=== PATIENT | male | born 1950 | race African-American/Black ===

== ENCOUNTER 2016-09-29 11:49 | Inpatient (IN) ==
[2016-09-29] MEDS ORDERED: SODIUM CHLORIDE 0.9% 1,000 ML IV STA (12:24)
[2016-09-29 12:55] LABS: Basophils % 0.2 % (0.0-0.8); Eosinophils % 0.2 % (0.00-10.9); Hematocrit 29.6 VOL% (42.0-52.0); Hemoglobin 9.5 GM/DL (14.0-18.0); Immature Granulocytes % 0.4 %; Immature Granulocytes Absolute 0.03 #; Lymphocytes # 1.4 10*3/uL (1.4-4.0); Lymphocytes % 16.9 % (21.2-54.2); Mean Corpuscular HGB Conc 32.1 GM/DL (32-36); Mean Corpuscular Hemoglobin 29 PG (27-34); Mean Corpuscular Volume 88.9 FL (87-102); Mean Platelet Volume 9.4 FL (9.6-12.0); Monocytes # 0.8 10*3/uL (0.11-0.8); Monocytes % 9.7 % (1.7-12.7); Neutrophils % 72.6 % (38.7-73.9); Platelet Count 257 T/CUMM (130-400); Red Blood Count 3.33 MC/CUMM (3.8-5.5); Red Cell Distribution Width 11.8 % (9.3-17.3); White Blood Count 8.2 T/CUMM (4-12)
--- NOTE | 2016-09-29 13:18 | XRay Report ---
XR chest 1V portable Indication: Shortness of breath and fever. Chest one view: Comparison 02/25/2016. Patient is rotated to the left. The heart size and mediastinal contour are normal. The lungs and pleural spaces are clear. Bones are unremarkable. Impression: Negative chest. PROCEDURE INTERPRETED AT [facility] DEPARTMENT OF RADIOLOGY Final Report Signed by: Monster Gifford M.D.
[2016-09-29 13:30] LABS: Albumin 2.8 G/DL (3.4-5.0); Calcium 9.2 MG/DL (8.5-10.1); Osmolality,Calculated 278.4 MOS/KG (273-304); Potassium 3.9 MMOL/L (3.5-5.1); Total Protein 7.1 G/DL (6.4-8.3)
[2016-09-29 14:35] LABS: Apearance,Urine CLOUDY (Clear); Bacteria,Urine Many /HPF (Few); Bilirubin,Urine Negative (Negative); Blood, Urine Moderate mg/dL (Negative); Glucose,Urine (UA) Negative (Negative); Hyaline Casts,Urine 4 /LPF (0-3); Ketones,Urine 20 mg/dL (Negative); Mucus,Urine Few /LPF (Occasional); Nitrite,Urine Positive (Negative); Protein,Urine 30 MG/DL; RBC,Urine 180 /HPF (0-4); Squamous Epithelial Cell,Urine Occasional /HPF (0-10); Urine Color Amber (Yellow); Urine Specific Gravity 1.026 (1.001-1.035); WBC,Urine 3 /HPF (0-6)
--- NOTE | 2016-09-29 14:49 | XRay Report ---
Exam: XR ankle 3V LT Date: 09/29/2016 2:00 PM Comparison: None Indication: Decubitus the left ankle Technique: AP, oblique, and lateral left ankle Findings: Soft tissue swelling with arterial calcifications. Minimal joint space narrowing with small calcaneal osteophytes. No fracture, dislocation or dislocation. Chronic appearing deformity of the lateral distal left tibia. Impression: Soft tissue swelling with minimal degenerative changes. Calcaneal osteophytes. There is chronic appearing irregularity of the lateral cortex of the distal left tibia. No acute fracture or dislocation. Arterial calcifications are noted. PROCEDURE INTERPRETED AT [facility] DEPARTMENT OF RADIOLOGY Final Report Signed by: Dr. Kayce Mondragon
--- NOTE | 2016-09-29 14:53 | XRay Report ---
Exam: XR foot 2V LT Date: 09/29/2016 2:00 PM Comparison: None Indication: Decubitus in left foot and ankle Technique: AP, oblique, and lateral left foot Findings: Soft tissue swelling with ulceration beneath the os calcis. Overlying bandages. Joint space narrowing with sclerosis and osteophytes. Arterial calcifications with no acute fracture, dislocation, or significant periosteal thickening. Impression: Soft tissue swelling with ulceration and arterial calcifications. Minimal degenerative changes with no fracture, dislocation, or periosteal thickening. PROCEDURE INTERPRETED AT [facility] DEPARTMENT OF RADIOLOGY Final Report Signed by: Dr. Kayce Mondragon
[2016-09-29] MEDS ORDERED: BISACODYL 5 MG TABLET PO PRN (14:59)
[2016-09-29] MEDS ORDERED: ONDANSETRON 4 MG/2 ML VIAL IV PRN (14:59)
[2016-09-29] MEDS ORDERED: traZODone 50 MG TABLET PO PRN (14:59)
--- NOTE | 2016-09-29 15:03 | Emergency Department Note ---
Luis Sandoval Brittany, am scribing for, and in the presence of, Stepan Lord MD 12:41. Pop Sandoval Phillip K, MD, personally performed the services described in this documentation, ascribed by Velia Smith in my presence, and it is both accurate and complete [id number] . Arrival - Arrival Chief Complaint: Non-Specific Stated Complaint: AMS ED Nursing Triage Note: states patient has not had a good B/M in several days, not drinking or eating, has been running a fever. Patient wifes states he also has several decubitus that she wants checked. Mode of Arrival: Wheelchair Limitations: No Limitations Source: Family Time Seen by Provider: 09/29/16 12:14 - History of Present Illness HPI Narrative: This is a 66 y/o black male,who presents to the ED with c/o fever which started yesterday. His states pt has had a fever and a decreased PO intake since yesterday. She reports she has been giving pt Tylenol BID over the past 24 hours , but has not giving him any today. She also complains of open sores to the lower extremities and constipation. Pt's states he has not had a BM since 08/24/2016. She has been giving him stool softeners and states yesterday he was able to pass "small marbles". Pt has no other complaints/pain in the ED at this time. Pt has a PMHx of CVA, HTN, dementia, IDDM, dyslipidemia, herniated disk, degenerative disk disease, and back/neck problems. Pt has had a RTKR and spinal surgery. Pt has a Family medical Hx of HTN, stroke, diabetes, and cancer. Pt is a current every day smoker. Onset (ago): day(s) (Started yesterday) Consistency: constant Severity: moderate Allergies/Adverse Reactions: Allergies Allergy/AdvReac Type Severity Reaction Status Date / Time No Known Allergies Allergy Unverified 08/14/15 14:06 Home Medications: Home Medications Medication Instructions Recorded Confirmed Type Bisoprolol Fumarate/Hctz 2 tablet PO DAILY 08/14/15 09/29/16 History [Bisoprolol-Hctz 10-6.25 mg Tab] Simvastatin 40.5 tablet PO 1800 08/14/15 09/29/16 History Tamsulosin [Flomax] 1 capsule PO BID 08/14/15 09/29/16 History Cholecalciferol (Vitamin D3) 1,000 unit PO DAILY 02/11/16 09/29/16 History [Vitamin D3] Losartan [Cozaar] 100 mg PO DAILY 02/11/16 09/29/16 History Polyethylene Glycol Powder 17 gm PO DAILY #10 powder 04/05/16 09/29/16 Rx [Miralax] Ferrous Sulfate 324 mg PO DAILY 09/29/16 09/29/16 History Lactulose 10 ml PO DAILY PRN 09/29/16 09/29/16 History hydroCHLOROthiazide 0.5 mg PO DAILY 09/29/16 09/29/16 History [Hydrochlorothiazide] Review of System - Review of System 12 point system: reviewed and no additional remarkable complaints except as stated - Review of System Constitutional: Present: fever Gastrointestinal: Present: constipation Additional ROS comments: Decubitus to the lower extremities. Medical,Surgical,& Family Hx - Medical History Cardio: History of: Hypertension No history of: Aneurysm, Cardiac Dysrhythmia, Cerebrovascular Disease, Congenital Heart Disease, CHF, CAD, [place], Pacemaker, PVD, Valvular Heart Disease, Cardiovascular Problems Psychological: No history of: Anxiety Disorders, ADHD, Behavior Problems, Bipolar Disorder, Depression, Previous Suicide Attempt, Psychiatric/Substance Abuse Tx, Schizophrenia, Violent Behavior, Psychiatric Problems Neurology: History of: Cerebrovascular Accident, Dementia No history of: Brain Aneurysm, Cerebral Hemorrhage, Cerebral Palsy, Migraine , Multiple Sclerosis, Parkinson's Disease, Peripheral Neuropathy, Seizures, TIA , Vertigo, Neurologocal Cancer HEENT: No history of: Ear Problem, Eye Problem, Dental Problems, Glaucoma, Oral Cancer, HEENT Problems Endocrine: History of: Diabetes Mellitus (NIDDM), Dyslipidemia No history of: Adrenal Disease, Diabetes Mellitus (IDDM), Thyroid Disorder, Endocrine Cancer, Endocrine Problems Rheumatology: No history of;: Fibromyalgia, Gout, Myasthenia Gravis, Psoriasis, Rheumatoid Arthritis, Sjogrens, Systemic Lupus Erythematosus, Rheumatological Problems Respiratory: No history of: Asthma, Bronchitis, COPD, Intubation, Obstructive Sleep Apnea , Pulmonary Embolism, Pulmonary Hypertension, Pneumonia, Lung Cancer, Respiratory Problems Renal: No history of: Renal (Kidney) Cancer, Dialysis, Renal Failure, Renal Problems Genitourinary: No history of: Bladder Problem, Kidney Stones, Prostate Problems, Recurring Urinary Tract Infections, Genitourinary Cancer, Problems Gastrointestinal: No history of: Bowel Obstruction, Clostridium Difficile, Crohn's Disease, Diverticulitis/ Diverticulosis, Esophageal Varices, GERD, Gastrointestinal Bleed , Hemorrhoids, Hematochezia, Hepatitis, Liver Problems, Pancreatitis, Polyps, Ulcerative Colitis, Gastrointestinal Cancer, GI Problems Musculoskeletal: History of: Back/Neck Problems, Degenerative Disk Disease, Herniated Disk No history of: Amputation, Osteoporosis, Musculoskeletal Cancer, Musculoskeletal Problems Hematology: No history of: Anemia, Blood Transfusion Reaction, Bleeding Problems, Clotting Problems, Sickle Cell Disease, Hematologic Cancer, Blood Disorders Reproductive: No histroy: Penile Disorder, Sexually Transmitted Disease, Reproductive Cancer, Reproductive Problems Other: No history of: Anesthesia Reactions, Anaphylaxis, Cancer, Eczema, HIV, Malignant Hyperthermia, MRSA, Vancomycin-Resistant Enterococci, Skin Problems, Miscellaneous Medical Problems - Surgical History Cardiac Surgeries: Patient Denies: Femoral-Popliteal Bypass Graft, Cardiac Catheterization, Cardiac Surgery, Carotid Endarterectomy, Internal Defibrillator, Vascular Access Devices Thoracic Surgeries: Patient denies;: Kidney (Renal Surgery), Lithotripsy, Nephrectomy, Organ Transplant, Lobectomy Neurologic Surgeries: Patient denies: Brain Aneurysm, Cerebral Hemorrhage, Neurologic Surgery HEENT Surgeries: Patient denies: Carotid Endarterectomy, Eye Surgery, Thyroid Surgery, Tonsilectomy & Adenoidectomy Abdominal Surgeries: Patient denies: Abdominal Surgery, Appendectomy, Cholecystectomy, Colonoscopy , Gastric Bypass Surgery, EGD, Hernia Repair, Splenectomy Reproductive Surgeries: Patient denies;: Breast Surgery, Cystoscopy, Genitourinary Surgery, Prostate Surgery, Vasectomy Orthopedic Surgeries: Surgical HX of;: Orthopedic Surgery (Right Knee replacement), Spinal Surgery, Total Knee Replacement (Right Knee) Patient denies;: Implanted Devices, Total Hip Replacement - Family History Family History: Reports;: Family Cancer, Family Diabetes, Family Hypertension, Family Stroke Denies;: Family Anesthesia Reaction, Family Heart Disease, Family Psychiatric Problems - Social History Smoking Status: Current every day smoker Frequency of Alcohol Use: Unknown Type of Drug Use: Unknown Exam Vital Signs: Vital Signs Temperature 97.7 F 09/29/16 11:59 Pulse Rate 91 H 09/29/16 11:59 Respiratory Rate 16 09/29/16 12:55 Blood Pressure 98/57 09/29/16 11:59 O2 Sat by Pulse Oximetry 98 02/07/17 11:59 - General General appearance: alert, in no apparent distress - Head Head exam: Present: atraumatic, normocephalic, normal inspection - Eye Eye exam: Present: normal appearance, PERRL, EOMI - ENT ENT exam: Present: normal exam, normal oropharynx, mucous membranes moist - Neck Neck exam: Present: normal inspection, full ROM, trachea midline. Absent: tenderness, thyromegaly - Chest Chest inspection: Present: normal inspection, symmetric chest wall rise. Absent : tenderness, abscess - Respiratory Respiratory exam: Present: normal lung sounds bilaterally. Absent: prolonged expiratory phase, rales, respiratory distress, rhonchi, stridor, wheezes - Cardiovascular Cardiovascular exam: Present: regular rate, normal rhythm, normal heart sounds. Absent: murmur, rubs, gallop, clicks - Abdominal Exam Abdominal exam: Present: soft, normal bowel sounds. Absent: distention, tenderness, guarding, rebound, rigidity - Rectal Exam Rectal exam: Present: heme (-) stool. Absent: fecal impaction - Extremities Exam Extremities exam: Present: other (1x2 cm wound to the dorsal of the left ankle, 1x1 cm wound to the head of the 5th left metatrasal ) - Back Exam Back exam: Present: normal inspection, full ROM. Absent: tenderness, muscle spasm, rashes - Neurological Exam Neurological exam: Present: alert, other (Contractions of the left side of body secondary to previous CVA (01/22/2016)) - Psychiatric Psychiatric exam: Present: normal affect, normal mood. Absent: depressed, agitated, anxious - Skin Skin exam: Present: warm, dry, intact, normal color. Absent: diaphoresis Results - Labs CBC & BMP: 09/29/16 12:10 09/29/16 12:10 Lab Results: I have reviewed the patients labs - Diagnostic Findings Procedure: Chest x-ray: report reviewed by me (Normal chest x-ray) Disposition Clinical Impression: Anemia, Failure to thrive, Decubitus skin ulcer, Dehydration Case discussed with: patient's family Disposition: Still a Patient Condition: Guarded Additional Instructions: Admit to the hospitalist.
--- NOTE | 2016-09-29 15:13 | EKG Report ---
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
--- NOTE | 2016-09-29 15:15 | Hospitalist History & Physical ---
Assessment and Plan (1) Decubitus skin ulcer Status: Chronic Assessment and plan: Complex lesion on the left foot with fever and presumptive systemic toxicity ( toxic encephalopathy). No sepsis criteria at presentation. Current Visit: Yes Qualifiers: Pressure ulcer location: dorsum of foot (2) CVA (cerebral vascular accident) Status: Chronic Assessment and plan: Multiple ischemic [employer] events with profound residual neurologic deficits (motor, speech). Pressure injuries with contractures Current Visit: No (3) Diabetes mellitus Status: Chronic Assessment and plan: Due to poor oral intake has not required recent active therapy. Current Visit: No Qualifiers: Diabetes mellitus type: type 2 History of Present Illness History of present illness: Mr. Hallman is a 66 year old male hypertensive with clinical CVA 1999,2003, and most recently in January. The imaging studies in January showed multifocal cerebral lesions of various ages, normal echocardiogram and no significant carotid artery lesion. He had been on coumadin fdc but this was discontinue in March due to bleeding. Since last stroke he has been bed bound with bilateral heal pressure injuries and progressive flexion contracture of the left lower extremity. With this he has had progressive loss of tissue over the dorsum of the foot. He has been managed by home health through the [facility] without final disposition. Beginning Wednesday less alert with poor oral intake. Low grade fever yesterday with temperature this AM above 101 even with intermittent tylenol since Wednesday. Patient was diabetic but oral agents discontinued due to poor oral intake, likewise his with home health have been holding blood pressure medications intermittently. Home Medications Medication Instructions Recorded Confirmed Type Bisoprolol Fumarate/Hctz 2 tablet PO DAILY 08/14/15 09/29/16 History [Bisoprolol-Hctz 10-6.25 mg Tab] Simvastatin 40.5 tablet PO 1800 08/14/15 09/29/16 History Tamsulosin [Flomax] 1 capsule PO BID 08/14/15 09/29/16 History Cholecalciferol (Vitamin D3) 1,000 unit PO DAILY 02/11/16 09/29/16 History [Vitamin D3] Losartan [Cozaar] 100 mg PO DAILY 02/11/16 09/29/16 History Polyethylene Glycol Powder 17 gm PO DAILY #10 powder 04/05/16 09/29/16 Rx [Miralax] Ferrous Sulfate 324 mg PO DAILY 09/29/16 09/29/16 History Lactulose 10 ml PO DAILY PRN 09/29/16 09/29/16 History hydroCHLOROthiazide 0.5 mg PO DAILY 09/29/16 09/29/16 History [Hydrochlorothiazide] Allergies Allergy/AdvReac Type Severity Reaction Status Date / Time No Known Allergies Allergy Unverified 08/14/15 14:06 Medical,Surgical,& Family Hx - Medical History Cardio: History of: Cerebrovascular Disease (multiple CVA with wide distribution in time and location), Hypertension Neurology: History of: Cerebrovascular Accident, Cerebral Palsy, Dementia Endocrine: History of: Diabetes Mellitus (NIDDM), Dyslipidemia Genitourinary: History of: Prostate Problems Gastrointestinal: History of: Gastrointestinal Bleed Musculoskeletal: History of: Back/Neck Problems, Degenerative Disk Disease, Herniated Disk - Surgical History Orthopedic Surgeries: Surgical HX of;: Orthopedic Surgery (Right Knee replacement), Spinal Surgery (lumbar disc) - Family History Family History: Reports;: Family Cancer, Family Diabetes, Family Hypertension, Family Stroke Denies;: Family Anesthesia Reaction, Family Heart Disease, Family Psychiatric Problems - Social History Smoking Status: Former smoker (since last admission) Frequency of Alcohol Use: Unknown Type of Drug Use: Unknown ROS unobtainable: due to mental status Exam - Constitutional Vitals: Period Temp Pulse Resp BP Sys/Valenzuela Pulse Ox Last 24 Hr 97.7 F-97.7 F 91-91 16-19 98-98/57-57 98 General appearance: under weight - Head Head exam: Present: atraumatic - Neck Neck exam: Absent: lymphadenopathy, thyromegaly - Respiratory Respiratory exam: Present: clear to auscultation bilaterally. Absent: rales, rhonchi, wheezes - Cardiovascular Cardiovascular exam: Present: regular rate and rhythm - GI/Abdominal GI/Abdominal exam: Absent: normal bowel sounds, distended, mass, organomegaly, tenderness - Extremities Exam Extremities exam: Present: other (marked sarcopenia. left knee contracture). Absent: edema - Neurological Exam Neurological exam: Present: alert, other (non verbal) Results - Labs CBC & BMP: 09/29/16 12:10 09/29/16 12:10 Lab Results: I have reviewed the past 24 hour labs Labs: Globulin 4.3 Albumen 2.8 Urinalysis RBC, mild proteinuria, few WBC - Diagnostic Findings Procedure: Chest x-ray: image reviewed by me (severe GALO rotation with soft tissue overlay)
--- NOTE | 2016-09-29 17:16 | General Surgery Consult Note ---
Assessment and Plan (1) Decubitus skin ulcer Status: Chronic Assessment and plan: Impression: Diabetic ulcers on left foot Plan: I don't see any obvious active infection at this time. We'll plan for debridement of these at the bedside as best as possible tomorrow with a curette. We'll have a better sense of any infectious process at that time. I have concern that he may not be able to heal several of these ulcers including those with exposed tendon. I discussed the possibility of amputation above the knee with the family that they don't want that at this time. I suspect he would be at a higher than usual risk for anesthesia given his history of strokes in the past. We'll continue with local wound care at this time. Current Visit: Yes Qualifiers: Pressure ulcer location: dorsum of foot History of Present Illness Chief complaint: consult for foot ulcers History of present illness: Mr. Hallman is a 66 year old male admitted with fever. Extensive medical history including multiple prior cerebrovascular accidents. He is off anticoagulation due to history of bleeding. He's had multiple lower extremity ulcers and the ones on the right foot have healed with home health. The left lower extremity is contracted and he has several ulcers on the left foot including the dorsum, lateral foot, medial foot and great toe. He no longer participates in physical therapy as he was not making any progress. There is no hope for any future ambulation with his contracture and debilitation. Home Medications Medication Instructions Recorded Confirmed Type Bisoprolol Fumarate/Hctz 2 tablet PO DAILY 08/14/15 09/29/16 History [Bisoprolol-Hctz 10-6.25 mg Tab] Simvastatin 40.5 tablet PO 1800 08/14/15 09/29/16 History Tamsulosin [Flomax] 1 capsule PO BID 08/14/15 09/29/16 History Cholecalciferol (Vitamin D3) 1,000 unit PO DAILY 02/11/16 09/29/16 History [Vitamin D3] Losartan [Cozaar] 100 mg PO DAILY 02/11/16 09/29/16 History Polyethylene Glycol Powder 17 gm PO DAILY #10 powder 04/05/16 09/29/16 Rx [Miralax] Ferrous Sulfate 324 mg PO DAILY 09/29/16 09/29/16 History Lactulose 10 ml PO DAILY PRN 09/29/16 09/29/16 History hydroCHLOROthiazide 0.5 mg PO DAILY 09/29/16 09/29/16 History [Hydrochlorothiazide] Allergies Allergy/AdvReac Type Severity Reaction Status Date / Time No Known Allergies Allergy Unverified 08/14/15 14:06 Medical,Surgical,& Family Hx - Medical History Cardio: History of: Cerebrovascular Disease (multiple CVA with wide distribution in time and location), Hypertension No history of: Aneurysm, Cardiac Dysrhythmia, Congenital Heart Disease, CHF, CAD, [place], Pacemaker, PVD, Valvular Heart Disease, Cardiovascular Problems Psychological: No history of: Anxiety Disorders, ADHD, Behavior Problems, Bipolar Disorder, Depression, Previous Suicide Attempt, Psychiatric/Substance Abuse Tx, Schizophrenia, Violent Behavior, Psychiatric Problems Neurology: History of: Cerebrovascular Accident, Cerebral Palsy, Dementia No history of: Brain Aneurysm, Cerebral Hemorrhage, Migraine, Multiple Sclerosis, Parkinson's Disease, Peripheral Neuropathy, Seizures, TIA, Vertigo, Neurologocal Cancer HEENT: No history of: Ear Problem, Eye Problem, Dental Problems, Glaucoma, Oral Cancer, HEENT Problems Endocrine: History of: Diabetes Mellitus (NIDDM), Dyslipidemia No history of: Adrenal Disease, Diabetes Mellitus (IDDM), Thyroid Disorder, Endocrine Cancer, Endocrine Problems Rheumatology: No history of;: Fibromyalgia, Gout, Myasthenia Gravis, Psoriasis, Rheumatoid Arthritis, Sjogrens, Systemic Lupus Erythematosus, Rheumatological Problems Respiratory: No history of: Asthma, Bronchitis, COPD, Intubation, Obstructive Sleep Apnea , Pulmonary Embolism, Pulmonary Hypertension, Pneumonia, Lung Cancer, Respiratory Problems Renal: No history of: Renal (Kidney) Cancer, Dialysis, Renal Failure, Renal Problems Genitourinary: History of: Prostate Problems No history of: Bladder Problem, Kidney Stones, Recurring Urinary Tract Infections, Genitourinary Cancer, Problems Gastrointestinal: History of: Gastrointestinal Bleed No history of: Bowel Obstruction, Clostridium Difficile, Crohn's Disease, Diverticulitis/ Diverticulosis, Esophageal Varices, GERD, Hemorrhoids, Hematochezia, Hepatitis, Liver Problems, Pancreatitis, Polyps, Ulcerative Colitis, Gastrointestinal Cancer, GI Problems Musculoskeletal: History of: Back/Neck Problems, Degenerative Disk Disease, Herniated Disk No history of: Amputation, Osteoporosis, Musculoskeletal Cancer, Musculoskeletal Problems Hematology: No history of: Anemia, Blood Transfusion Reaction, Bleeding Problems, Clotting Problems, Sickle Cell Disease, Hematologic Cancer, Blood Disorders Reproductive: No histroy: Penile Disorder, Sexually Transmitted Disease, Reproductive Cancer, Reproductive Problems Other: No history of: Anesthesia Reactions, Anaphylaxis, Cancer, Eczema, HIV, Malignant Hyperthermia, MRSA, Vancomycin-Resistant Enterococci, Skin Problems, Miscellaneous Medical Problems - Surgical History Cardiac Surgeries: Patient Denies: Femoral-Popliteal Bypass Graft, Cardiac Catheterization, Cardiac Surgery, Carotid Endarterectomy, Internal Defibrillator, Vascular Access Devices Thoracic Surgeries: Patient denies;: Kidney (Renal Surgery), Lithotripsy, Nephrectomy, Organ Transplant, Lobectomy Neurologic Surgeries: Patient denies: Brain Aneurysm, Cerebral Hemorrhage, Neurologic Surgery HEENT Surgeries: Patient denies: Carotid Endarterectomy, Eye Surgery, Thyroid Surgery, Tonsilectomy & Adenoidectomy Abdominal Surgeries: Patient denies: Abdominal Surgery, Appendectomy, Cholecystectomy, Colonoscopy , Gastric Bypass Surgery, EGD, Hernia Repair, Splenectomy Reproductive Surgeries: Patient denies;: Breast Surgery, Cystoscopy, Genitourinary Surgery, Prostate Surgery, Vasectomy Orthopedic Surgeries: Surgical HX of;: Orthopedic Surgery (Right Knee replacement), Spinal Surgery (lumbar disc), Total Knee Replacement (Right Knee) Patient denies;: Implanted Devices, Total Hip Replacement - Family History Family History: Reports;: Family Cancer, Family Diabetes, Family Hypertension, Family Stroke Denies;: Family Anesthesia Reaction, Family Heart Disease, Family Psychiatric Problems - Social History Smoking Status: Former smoker (since last admission) Frequency of Alcohol Use: Unknown Type of Drug Use: Unknown 12 point system: reviewed and no additional remarkable complaints except as stated Exam - Constitutional General appearance: no acute distress - Head Head exam: Present: normal inspection - Respiratory Respiratory exam: Present: clear to auscultation bilaterally - Cardiovascular Cardiovascular exam: Present: RRR - GI/Abdominal GI/Abdominal exam: Present: soft (nontender nondistended) - Extremities Exam Extremities exam: Present: other (dry ulcerations and eschars on the left foot and left great toe. There is no purulence or sign of infection. Along the dorsum of the foot and the lateral portion of the foot there is exposed tendon. There is quite a bit of nonviable tissue.) Results - Labs CBC & BMP: 09/29/16 12:10 09/29/16 12:10 Lab Results: I have reviewed the past 24 hour labs
[2016-09-29] MEDS: ENOXAPARIN 40 MG/0.4 ML SYRINGE SUBCUT SCH (18:11)
[2016-09-29] MEDS: LACTATED RINGERS 1,000 ML IV SCH (18:21)
[2016-09-29] MEDS: AMPICILLIN/SULBACTAM 1,500 MG in SODIUM CHLORIDE 0.9% 100 ML IV SCH (18:22)
[2016-09-29] MEDS: THIAMINE 200 MG/2 ML VIAL IV SCH (18:22)
[2016-09-29] MEDS: SIMVASTATIN 40 MG TABLET PO SCH (18:22)
[2016-09-29] MEDS: TAMSULOSIN 0.4 MG CAPSULE PO SCH (22:11)
[2016-09-30] MEDS: AMPICILLIN/SULBACTAM 1,500 MG in SODIUM CHLORIDE 0.9% 100 ML IV SCH ×3 (00:36→15:58)
--- NOTE | 2016-09-30 07:20 | Physician Query Form ---
CLICK EDIT DOCUMENT TO SELECT QUERY ANSWER --> OK --> SIGN Emelia Valdez RN, CCDS Certified Clinical B[employer]bearer W) [phone] (f) [phone] [email or web address]: Make your selection(s) from the choices in EACH section by typing an "x" and enter comments in the comment section. Please use your independent medical judgment in providing your response. This request does not imply that any particular answer is desired or expected. CLINICAL INDICATORS: (Providers should not edit this section) The medical record indicates that the patient was admitted with dehydration, "multiple lower extremity ulcers", "there is no hope for any future ambulation with his contracture", "lateral portion of the foot there is exposed tendon", "Since last stroke he has been bed bound with bilateral heel pressure injuries and progressive flexion contracture of the left lower extremity".-----Hygiene Ability "total care, Feeding Ability "total care", Ambulation Ability "Total Care" Which, if any, of the following is an etiology of the above abnormalities and treatment rendered: ( ) Functional quadriplegia (complete immobility due to severe physical disability or frailty due to non-neurologic cause) ( ) Quadriplegia due to a neurologic cause, please specify: ( ) Paraplegia due to a neurologic cause, please specify: ( x) Hemiplegia/hemiparesis due to a neurologic cause, please specify: ( ) Complete Immobility (due to frailty or severe physical disability) ( ) Persistent vegetative state ( ) Critical illness myopathy (difficulty weaning patients from mechanical ventilation or prolonged recovery after illness) ( ) General weakness ( ) Other cause, please specify: ( ) Clinically unable to determine COMMENTS: Use of terms such as suspected, likely, or probable (associated with a specific diagnosis that is being evaluated, monitored, or treated as if it exists) are acceptable and can be restated in the discharge summary if not ruled out. Multiple stroke syndrome MTDD
[2016-09-30 07:44] LABS: Calcium 8.3 MG/DL (8.5-10.1); Osmolality,Calculated 280.1 MOS/KG (273-304); Potassium 3.9 MMOL/L (3.5-5.1)
--- NOTE | 2016-09-30 08:26 | Hospitalist Progress Note ---
Assessment and Plan (1) Decubitus skin ulcer Status: Chronic Assessment and plan: Complex lesion on the left foot with fever and presumptive systemic toxicity ( toxic encephalopathy). No sepsis criteria at presentation. 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 Pressure injuries with contractures Current Visit: No (3) Diabetes mellitus Status: Chronic Assessment and plan: Due to poor oral intake has not required recent active therapy. 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 Admitted for temperature elevation at home to over 101 on the 7th. Has clear chest exam and xray with minimal pyuria. Skin lesions have been assessed by surgery. He is awake and alert this AM, stable vitals and no fever overnight. Exam - Constitutional Vitals: Period Temp Pulse Resp BP Sys/Valenzuela Pulse Ox Last 24 Hr 98.7 F-99.5 F 88-98 18-18 126-131/57-68 95-96 General appearance: under weight - Respiratory Respiratory exam: Present: clear to auscultation bilaterally. Absent: rales, rhonchi, wheezes - Cardiovascular Cardiovascular exam: Present: regular rate and rhythm - GI/Abdominal GI/Abdominal exam: Present: normal bowel sounds. Absent: tenderness - Extremities Exam Extremities exam: Absent: edema - Neurological Exam Neurological exam: Present: alert Results - Labs CBC & BMP: 09/29/16 12:10 09/30/16 06:19
[2016-09-30] MEDS: THIAMINE 200 MG/2 ML VIAL IV SCH (09:45)
[2016-09-30] MEDS: TAMSULOSIN 0.4 MG CAPSULE PO SCH ×2 (09:49→20:12)
[2016-09-30] MEDS: LACTATED RINGERS 1,000 ML IV SCH ×2 (09:53→19:28)
--- NOTE | 2016-09-30 13:06 | General Surgery Progress Note ---
Assessment and Plan - Time spent with patient Time spent with patient: Less than 30 minutes (1) Decubitus skin ulcer Status: Chronic Assessment and plan: 66AAM w history of multiple CVA and GI bleed admitted by hospitalist w fevers. hes been found to have a UTI and being treated w abx. dr gan had been consulted for multiple foot ulcers on left foot as possible source of fever. pt is nonverbal but can feel pain in his foot when manipulated. pts family member is present. pt has severe contracture of left leg. AFVSS, labs ok, UTI w GNR, sens pending. right foot w healed ulcers on heel and dorsum. left foot w ulcer on dorsum w exposed tendon, lateral 5th MTH area w exposed bone w splintering, ulcer 1st MTH and 1st toe. all wounds w necrosis. AP--dr gan performed bedside debridement w curette of necrotic tissue. wounds dressed and orders placed. will set up w for dressings and set up for wound center follow up. pt needs to have 5th toe amputation and family member is unsure so will speak w her other family. keep npo p mn tonight for possible amputation in the am. Current Visit: Yes Qualifiers: Pressure ulcer location: dorsum of foot Exam - Constitutional Vitals: Period Temp Pulse Resp BP Sys/Valenzuela Pulse Ox Last 24 Hr 98.0 F-99.5 F 88-98 18-19 126-158/57-70 95-100 Results - Labs CBC & BMP: 09/29/16 12:10 09/30/16 06:19
[2016-09-30] MEDS: CHLORHEXIDINE 4% SOLN 118 ML BOTTLE TOP SCH (13:30)
[2016-09-30] MEDS ORDERED: LIDOCAINE 2% 5 ML VIAL ONE (14:27)
--- NOTE | 2016-09-30 14:33 | Operative Note ---
Date of procedure: 09/30/16 Pre-op diagnosis: chronic ulcers left foot with nonviable tissue Post-op diagnosis: same Procedure: Procedure performed: Excisional debridement of left foot lateral ulcer including skin and subcutaneous tissue. Area debrided was 3 x 4 cm #2 excisional debridement left foot medial ulcer including skin and subcutaneous tissue area debrided was 2 x 3 cm #3 excisional debridement left great toe ulcer including skin and subcutaneous tissue. Area debrided was 2 x 2 centimeters. Procedure in detail: After discussing with the patient and family agreed to proceed with bedside debridement. The left foot was cleaned and a curette was used to perform an excisional debridement removing the nonviable skin and subcutaneous tissue at all 3 ulcers. I removed as much of the nonviable tissue is present. I did not encounter any purulence or deeper infection. Of note on the left lateral foot there appeared to be communication with the joint and disarticulation of the joint or fracture of the metatarsal head. I suspect this is a fracture based on what I see on the x-ray in the way that it feels. There was exposed bone of the fifth metatarsal head. The wounds were all packed. There was excellent hemostasis. Patient tolerated the procedure well. Anesthesia: none Surgeon / Physician: Vipin Small Estimated blood loss: other (less than 5 mL) Specimens: none sent Condition: stable Disposition: PACU Results - Labs CBC & BMP: 09/29/16 12:10 09/30/16 06:19 Discharge Plan - Discharge Medications No Action Tamsulosin [Flomax] 1 capsule PO BID Simvastatin 40.5 tablet PO 1800 Bisoprolol Fumarate/Hctz [Bisoprolol-Hctz 10-6.25 mg Tab] 2 tablet PO DAILY Losartan [Cozaar] 100 mg PO DAILY Cholecalciferol (Vitamin D3) [Vitamin D3] 1,000 unit PO DAILY Polyethylene Glycol Powder [Miralax] 17 gm PO DAILY #10 powder Ferrous Sulfate 324 mg PO DAILY Lactulose 10 ml PO DAILY PRN PRN Reason: Constipation hydroCHLOROthiazide [Hydrochlorothiazide] 0.5 mg PO DAILY - Follow Up or Referral - Forms/Instructions
[2016-09-30] MEDS: ENOXAPARIN 40 MG/0.4 ML SYRINGE SUBCUT SCH (16:01)
[2016-09-30] MEDS: SIMVASTATIN 40 MG TABLET PO SCH (18:10)
[2016-10-01] MEDS: LACTATED RINGERS 1,000 ML IV SCH ×3 (00:24→21:22)
[2016-10-01] MEDS: AMPICILLIN/SULBACTAM 1,500 MG in SODIUM CHLORIDE 0.9% 100 ML IV SCH ×3 (00:24→16:22)
--- NOTE | 2016-10-01 08:56 | Hospitalist Progress Note ---
Assessment and Plan (1) Decubitus skin ulcer Status: Chronic Assessment and plan: Complex lesion on the left foot with fever and presumptive systemic toxicity ( toxic encephalopathy). No sepsis criteria at presentation. 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 Pressure injuries with contractures Current Visit: No (3) Diabetes mellitus Status: Chronic Assessment and plan: Due to poor oral intake has not required recent active therapy. 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 Admitted for fever with blood culture showing GPC and urine showing GNR with identifications pending. He has been debrided by surgery and will have focal amputation performed today (family is resistant to left AKA). He remains with stable vital signs and afebrile. Exam - Constitutional Vitals: Period Temp Pulse Resp BP Sys/Valenzuela Pulse Ox Last 24 Hr 97.1 F-99.1 F 90-99 17-20 122-158/59-76 93-100 General appearance: under weight - Respiratory Respiratory exam: Present: clear to auscultation bilaterally - Cardiovascular Cardiovascular exam: Present: regular rate and rhythm - GI/Abdominal GI/Abdominal exam: Present: normal bowel sounds. Absent: tenderness - Extremities Exam Extremities exam: Absent: edema - Neurological Exam Neurological exam: Present: alert, other (residual motor and speech defects related to prior CVAs) Results - Labs CBC & BMP: 09/29/16 12:10 09/30/16 06:19
--- NOTE | 2016-10-01 09:19 | General Surgery Progress Note ---
Assessment and Plan - Time spent with patient Time spent with patient: Less than 30 minutes (1) Decubitus skin ulcer Status: Chronic Assessment and plan: 66AAM w history of multiple CVA and GI bleed admitted by hospitalist w fevers. hes been found to have a UTI and being treated w abx. dr gan had been consulted for multiple foot ulcers on left foot as possible source of fever. pt is nonverbal but can feel pain in his foot when manipulated. pts family member is present. pt has severe contracture of left leg. AFVSS, labs ok, UTI w GNR, sens pending. right foot w healed ulcers on heel and dorsum. left foot w ulcer on dorsum w exposed tendon, lateral 5th MTH area w exposed bone w splintering, ulcer 1st MTH and 1st toe. all wounds w necrosis. AP--dr gan performed bedside debridement w curette of necrotic tissue. wounds dressed and orders placed. will set up w for dressings and set up for wound center follow up. pt needs to have 5th toe amputation and family member is unsure so will speak w her other family. keep npo p mn tonight for possible amputation in the am. 10/01/16 pts is agreeable to 5th toe amputation. still not ready for AKA. pt is npo, awake and alert but nonverbal. AFVSS, left foot 5th toe w exposed splintered bone, left great toe w necrotic tissue and some small amount of purulence expressed from medial nail. pt is severely contracted. pt has BC w GPC and UTI w GNR. no fevers since admission. on abx. AP--dr gan is out today so dr shore will take pt to OR today for 5th toe amputation and debridement of left great toe. will need follow up at the wound center. 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 discussed w dr shore covering from dr gan. Current Visit: Yes Qualifiers: Pressure ulcer location: dorsum of foot Exam - Constitutional Vitals: Period Temp Pulse Resp BP Sys/Valenzuela Pulse Ox Last 24 Hr 97.1 F-99.1 F 90-99 17-20 122-158/59-76 93-100 Results - Labs CBC & BMP: 09/29/16 12:10 09/30/16 06:19
[2016-10-01] MEDS: CHLORHEXIDINE 4% SOLN 118 ML BOTTLE TOP SCH (11:09)
[2016-10-01] MEDS: TAMSULOSIN 0.4 MG CAPSULE PO SCH ×2 (11:09→20:30)
[2016-10-01] MEDS: THIAMINE 200 MG/2 ML VIAL IV SCH (11:09)
[2016-10-01] MEDS ORDERED: BUPIVACAINE 0.25% 50 ML VIAL ONE (13:44)
--- NOTE | 2016-10-01 15:12 | Operative Note ---
Date of procedure: 10/01/16 Pre-op diagnosis: osteomyelitis left fifth metatarsal, necrotic wound left great toe Post-op diagnosis: same Procedure: Preoperative diagnosis Osteomyelitis with exposed bone left fifth metatarsal Necrotic wound left great toe Postoperative diagnosis Same Procedures performed 1. Ray amputation left fifth toe 2. Excisional debridement left great toe wound 5 cm Findings Healthy tissue is found at the edges of the left fifth toe wound after ray amputation was performed through the metatarsal. There was some questionable viability of the tissue in the fourth metatarsal soft tissues but the patient and his family had not consented any further surgery so this was left alone and a primary closure was attempted. There was good bleeding on the plantar surface of the foot wound. An excisional debridement was performed of 5 cm of necrotic skin and subcutaneous tissue over the left great toe wound but minimal eschar was able to be removed and there was no underlying infection Complications None apparent Specimen Left fifth toe with metatarsal Blood loss 5 mL Anesthesia Monitored with local Indications Osteomyelitis with exposed bone left fifth metatarsal necrotic wound left great toe Description of procedure The patient was taken to the operating room and transferred to the operating table in the supine position. Pressure points were padded and SCDs were placed the right lower extremity. The left foot was prepped and draped with Betadine. The left foot was draped sterilely. Preoperative antibiotics were administered, and a timeout was performed. Ray amputation was performed after local anesthetic was administered on the left fifth toe. Skin incision was made with a scalpel and sharp dissection was used to get back on the metatarsal back to healthy bone. A bone cutter was used to transect the bone and it was trimmed back to healthy edges. There was some venous thrombosis of the vessels along the soft tissues above the fourth metatarsal with the patient and his family had not consented to further amputation. There was good bleeding on the plantar surface of the wound and at the other edges. The wound was irrigated and closed with 4-0 nylon sutures. The excisional debridement was performed on the right great toe by scraping with excisional debridement of 5 cm of necrotic tissue but minimal eschar was removed and there was no underlying infections of this was actually left alone afterwards. Dressings were applied and the patient was awakened from anesthesia and transferred to recovery. Postoperative plan Wound care and monitor for healing of the wound Anesthesia: MAC, local Surgeon / Physician: Angelo Quintanilla Estimated blood loss: minimal Specimens: other (left fifth toe) Condition: stable Disposition: PACU Results - Labs CBC & BMP: 09/29/16 12:10 09/30/16 06:19 Discharge Plan - Discharge Medications No Action Tamsulosin [Flomax] 1 capsule PO BID Simvastatin 40.5 tablet PO 1800 Bisoprolol Fumarate/Hctz [Bisoprolol-Hctz 10-6.25 mg Tab] 2 tablet PO DAILY Losartan [Cozaar] 100 mg PO DAILY Cholecalciferol (Vitamin D3) [Vitamin D3] 1,000 unit PO DAILY Polyethylene Glycol Powder [Miralax] 17 gm PO DAILY #10 powder Ferrous Sulfate 324 mg PO DAILY Lactulose 10 ml PO DAILY PRN PRN Reason: Constipation hydroCHLOROthiazide [Hydrochlorothiazide] 0.5 mg PO DAILY - Follow Up or Referral - Forms/Instructions
[2016-10-01] MEDS ORDERED: MIDAZOLAM 2 MG/2 ML VIAL ONE (15:23)
[2016-10-01] MEDS ORDERED: fentaNYL 100 MCG/2 ML VIAL ONE (15:23)
[2016-10-01] MEDS ORDERED: KETAMINE 500 MG/10 ML VIAL ONE (15:24)
[2016-10-01] MEDS: ENOXAPARIN 40 MG/0.4 ML SYRINGE SUBCUT SCH (16:12)
[2016-10-01] MEDS: SIMVASTATIN 40 MG TABLET PO SCH (18:16)
--- NOTE | 2016-10-01 20:12 | Event Note ---
General Surgery Progress Note Chief complaint This patient is a 66-year-old man admitted with fevers and urinary tract infection who underwent ray amputation of left fifth toe and debridement of left great toe on 10/01/2016. Interval history The patient is resting comfortably in bed. The family noticed some drainage on the bed but the actual dressing on his foot is clean with no drainage at all. Pain appears to be well-controlled. Physical exam The dressing on the left foot is clean and intact and there is no drainage Assessment and plan Continue wound care to the left foot and monitor for suture line necrosis. I discussed with the family that I think is unlikely that these wounds will heal but they would like to give it a shot prior to proceeding with any higher amputations.
--- NOTE | 2016-10-01 20:14 | Anesthesia ---
Anesthesia Post OP - Post Ansesthetic Evaluation Patient seen in post op: Yes Resp: within normal limits CV: within normal limits Mental: within normal limits Temp: within normal limits [id number]: within normal limits Nausea and Vomiting: within normal limits Pain: within normal limits
[2016-10-02] MEDS: AMPICILLIN/SULBACTAM 1,500 MG in SODIUM CHLORIDE 0.9% 100 ML IV SCH ×3 (00:02→15:30)
--- NOTE | 2016-10-02 08:12 | Event Note ---
General Surgery Progress Note Chief complaint This patient is a 66-year-old man admitted with fevers and urinary tract infection who underwent ray amputation of left fifth toe and debridement of left great toe on 10/01/2016. Interval history No events overnight. Patient's pain appears well-controlled. Afebrile Physical exam The incision on the left lateral foot is clean with no necrosis or infection. The remaining wounds are stable. Assessment and plan Continue current wound care.
[2016-10-02] MEDS: TAMSULOSIN 0.4 MG CAPSULE PO SCH ×2 (09:34→20:39)
--- NOTE | 2016-10-02 11:52 | Pathology Report from [facility] ---
ACCESSION # : [id number] PATIENT NAME : Mann Pate ORDERING DR : Angelo Quintanilla MD CLINICAL HX: Multiple left foot ulcers with necrosis POST-OP DX: Same SPECIMEN INFO: Left 5th toe GROSS DESCRIPTION: The specimen is received in formalin labeled with the patient 's name and consists of a focally gangrenous toe and distal metatarsal measuring 8.0 x 2.5 x 1.8 cm. A outbound telemarketing representative section submitted in one cassette. DIAGNOSIS FOR MANN PATE: LEFT FIFTH TOE, AMPUTATION: Wet gangrene. SERVICE DATE: 10/01/2016 REPORT DATE: 10/02/2016 PATHOLOGIST: Mitchell Najera M.D. [facility]
[2016-10-02] MEDS: CHLORHEXIDINE 4% SOLN 118 ML BOTTLE TOP SCH (12:03)
[2016-10-02] MEDS: LACTATED RINGERS 1,000 ML IV SCH (12:04)
--- NOTE | 2016-10-02 14:27 | Hospitalist Progress Note ---
Assessment and Plan (1) Diabetes mellitus Status: Chronic Current Visit: No Qualifiers: Diabetes mellitus type: type 2 (2) CVA (cerebral vascular accident) Status: Chronic Current Visit: No (3) Left-sided weakness Status: Acute Current Visit: No (4) Decubitus skin ulcer Status: Chronic Current Visit: Yes Qualifiers: Pressure ulcer location: dorsum of foot Hospitalist: Subjective Interval history: The patient is resting. Family at the bedside. Patient still not eating as much. Family members are requesting nutrition supplements. At this time we'll get a CBC BMP in a.m. Exam - Constitutional Vitals: Period Temp Pulse Resp BP Sys/Valenzuela Pulse Ox Last 24 Hr 98.1 F-100.1 F 90-116 16-20 124-152/65-84 96-100 General appearance: under weight - Eye Pupils: Present: GENTRY - Respiratory Respiratory exam: Present: clear to auscultation bilaterally - Cardiovascular Cardiovascular exam: Present: regular rate and rhythm - Neurological Exam Neurological exam: Present: alert - Psychiatric Psychiatric exam: Present: normal mood Results - Labs CBC & BMP: 09/29/16 12:10 09/30/16 06:19
[2016-10-02] MEDS: ENOXAPARIN 40 MG/0.4 ML SYRINGE SUBCUT SCH (15:29)
[2016-10-02] MEDS: SIMVASTATIN 40 MG TABLET PO SCH (17:50)
[2016-10-03] MEDS: LACTATED RINGERS 1,000 ML IV SCH ×3 (01:37→18:12)
[2016-10-03 05:32] LABS: Basophils % 0.1 % (0.0-0.8); Eosinophils % 0.5 % (0.00-10.9); Hematocrit 24.2 VOL% (42.0-52.0); Hemoglobin 7.7 GM/DL (14.0-18.0); Immature Granulocytes % 0.1 %; Immature Granulocytes Absolute 0.01 #; Lymphocytes # 1.3 10*3/uL (1.4-4.0); Lymphocytes % 17.6 % (21.2-54.2); Mean Corpuscular HGB Conc 31.8 GM/DL (32-36); Mean Corpuscular Hemoglobin 28 PG (27-34); Mean Corpuscular Volume 88.3 FL (87-102); Mean Platelet Volume 9.4 FL (9.6-12.0); Monocytes # 0.7 10*3/uL (0.11-0.8); Monocytes % 9.3 % (1.7-12.7); Neutrophils # 5.5 10*3/uL (1.4-7.4); Neutrophils % 72.4 % (38.7-73.9); Platelet Count 278 T/CUMM (130-400); Red Blood Count 2.74 MC/CUMM (3.8-5.5); Red Cell Distribution Width 11.5 % (9.3-17.3); White Blood Count 7.6 T/CUMM (4-12)
[2016-10-03 06:03] LABS: Calcium 8.1 MG/DL (8.5-10.1); Osmolality,Calculated 278.1 MOS/KG (273-304); Potassium 3.8 MMOL/L (3.5-5.1)
[2016-10-03] MEDS: AMPICILLIN/SULBACTAM 1,500 MG in SODIUM CHLORIDE 0.9% 100 ML IV SCH ×3 (06:33→14:36)
[2016-10-03] MEDS: TAMSULOSIN 0.4 MG CAPSULE PO SCH ×2 (09:03→21:11)
--- NOTE | 2016-10-03 09:57 | Event Note ---
10/03/2016 Patient is afebrile and stable has a severe contracture of the left hip and knee at this time. The amputation wound on the lateral left foot looks clean and dry. He has exposed tendon that is dry on the ankle of the left foot and eschars of ulcers on the medial aspect of his foot. No gross infection seen at this time. The heel ulcer on the left is better. The wounds on the right foot are clean and stable as well as the area on his heel. We'll maintain present wound care.
[2016-10-03] MEDS ORDERED: SKIN HEALING OINT (AQUAPHOR) 50 GM TUBE TOP PRN (10:26)
[2016-10-03] MEDS: CHLORHEXIDINE 4% SOLN 118 ML BOTTLE TOP SCH (11:51)
--- NOTE | 2016-10-03 11:58 | Hospitalist Progress Note ---
Assessment and Plan (1) Diabetes mellitus Status: Chronic Current Visit: No Qualifiers: Diabetes mellitus type: type 2 (2) CVA (cerebral vascular accident) Status: Chronic Current Visit: No (3) Left-sided weakness Status: Acute Current Visit: No (4) Decubitus skin ulcer Status: Chronic Current Visit: Yes Qualifiers: Pressure ulcer location: dorsum of foot Hospitalist: Subjective Interval history: The patient is resting comfortably no acute changes. No fevers or chills. Continuing with wound care. Hemodynamics are stable. Exam - Constitutional Vitals: Period Temp Pulse Resp BP Sys/Valenzuela Pulse Ox Last 24 Hr 98.3 F-99.8 F 95-109 12-20 129-149/65-75 96-97 General appearance: under weight - Respiratory Respiratory exam: Present: clear to auscultation bilaterally - Cardiovascular Cardiovascular exam: Present: regular rate and rhythm - GI/Abdominal GI/Abdominal exam: Present: normal bowel sounds - Neurological Exam Neurological exam: Present: alert Results - Labs CBC & BMP: 10/03/16 04:19 10/03/16 04:19
[2016-10-03] MEDS: ENOXAPARIN 40 MG/0.4 ML SYRINGE SUBCUT SCH (14:36)
[2016-10-03] MEDS: SIMVASTATIN 40 MG TABLET PO SCH (18:09)
[2016-10-04] MEDS: AMPICILLIN/SULBACTAM 1,500 MG in SODIUM CHLORIDE 0.9% 100 ML IV SCH ×3 (00:23→15:44)
[2016-10-04] MEDS: LACTATED RINGERS 1,000 ML IV SCH ×3 (05:29→20:25)
[2016-10-04] MEDS: TAMSULOSIN 0.4 MG CAPSULE PO SCH ×2 (08:51→21:37)
[2016-10-04] MEDS: CHLORHEXIDINE 4% SOLN 118 ML BOTTLE TOP SCH (09:34)
--- NOTE | 2016-10-04 09:50 | Event Note ---
10/04/2016 Patient is afebrile and little change in his status at this time. We do have the boots in place for protection of his wounds at this point. His hematocrits down to 24 today but elected not to transfuse but we'll recheck tomorrow.
--- NOTE | 2016-10-04 13:32 | Hospitalist Progress Note ---
Assessment and Plan (1) Diabetes mellitus Status: Chronic Current Visit: No Qualifiers: Diabetes mellitus type: type 2 (2) CVA (cerebral vascular accident) Status: Chronic Current Visit: No (3) Left-sided weakness Status: Chronic Current Visit: No (4) Decubitus skin ulcer Status: Chronic Current Visit: Yes Qualifiers: Pressure ulcer location: dorsum of foot (5) Anemia Status: Chronic Assessment and plan: CBC in AM hold lovenox today. Current Visit: No Qualifiers: Anemia type: unspecified type Qualified Code(s): D64.9 - Anemia, unspecified Hospitalist: Subjective Interval history: The patient is resting. No acute changes. HCT is noted and family mentions that Mr. Hallman's blood count dropped when he was in the hospital on xarelto before. There is concern about continuing the lovenox. Exam - Constitutional Vitals: Period Temp Pulse Resp BP Sys/Valenzuela Pulse Ox Last 24 Hr 98.1 F-99.6 F 106-113 12-19 119-154/61-80 94-100 General appearance: under weight - Head Head exam: Present: normal inspection - Respiratory Respiratory exam: Present: clear to auscultation bilaterally - Cardiovascular Cardiovascular exam: Present: regular rate and rhythm - GI/Abdominal GI/Abdominal exam: Present: normal bowel sounds - Neurological Exam Neurological exam: Present: alert Results - Labs CBC & BMP: 10/03/16 04:19 10/03/16 04:19
[2016-10-04] MEDS: ENOXAPARIN 40 MG/0.4 ML SYRINGE SUBCUT SCH (14:35)
[2016-10-04] MEDS: SIMVASTATIN 40 MG TABLET PO SCH (18:43)
[2016-10-04] MEDS ORDERED: ACETAMINOPHEN 325 MG TABLET PO PRN (22:07)
[2016-10-05] MEDS: AMPICILLIN/SULBACTAM 1,500 MG in SODIUM CHLORIDE 0.9% 100 ML IV SCH ×3 (00:11→15:35)
[2016-10-05 06:18] LABS: Basophils % 0.2 % (0.0-0.8); Eosinophils # 0.1 10*3/uL (0.0-0.87); Eosinophils % 1.1 % (0.00-10.9); Hematocrit 22.2 VOL% (42.0-52.0); Hemoglobin 7.2 GM/DL (14.0-18.0); Immature Granulocytes % 0.5 %; Immature Granulocytes Absolute 0.04 #; Lymphocytes % 23.2 % (21.2-54.2); Mean Corpuscular HGB Conc 32.4 GM/DL (32-36); Mean Corpuscular Hemoglobin 28 PG (27-34); Mean Corpuscular Volume 87.1 FL (87-102); Mean Platelet Volume 9.5 FL (9.6-12.0); Monocytes # 0.8 10*3/uL (0.11-0.8); Monocytes % 8.8 % (1.7-12.7); Neutrophils # 5.8 10*3/uL (1.4-7.4); Neutrophils % 66.2 % (38.7-73.9); Platelet Count 313 T/CUMM (130-400); Red Blood Count 2.55 MC/CUMM (3.8-5.5); Red Cell Distribution Width 11.6 % (9.3-17.3); White Blood Count 8.8 T/CUMM (4-12)
[2016-10-05 06:46] LABS: Calcium 7.9 MG/DL (8.5-10.1); Magnesium 1.9 MG/DL (1.8-2.4); Osmolality,Calculated 285.7 MOS/KG (273-304); Potassium 3.6 MMOL/L (3.5-5.1)
[2016-10-05] MEDS: LACTATED RINGERS 1,000 ML IV SCH ×2 (07:33→23:56)
[2016-10-05] MEDS: CHLORHEXIDINE 4% SOLN 118 ML BOTTLE TOP SCH (08:20)
--- NOTE | 2016-10-05 09:00 | Event Note ---
General Surgery Progress Note Chief complaint This patient is a 66-year-old man admitted with fevers and urinary tract infection who underwent ray amputation of left fifth toe and debridement of left great toe on 10/01/2016. Interval history No events over the weekend. Having some increasing tachycardia and blood counts are low. Patient's pain appears well-controlled. Afebrile Physical exam The incision on the left lateral foot is clean but has some suture line necrosis developing. The remaining wounds are stable and appear clean. Assessment and plan Continue current wound care. I discussed the possibility of needing higher amputation with the family again today, and given the contracture at the knee on the left side, I would not recommend any aggressive measures for revascularization or further workup of this.
[2016-10-05] MEDS: TAMSULOSIN 0.4 MG CAPSULE PO SCH ×2 (10:14→20:24)
[2016-10-05] MEDS: BISOPROLOL/HCTZ 10-6.25 MG TABLET PO SCH (10:14)
[2016-10-05] MEDS: SIMVASTATIN 40 MG TABLET PO SCH (17:36)
--- NOTE | 2016-10-05 17:59 | Hospitalist Progress Note ---
Assessment and Plan - Time spent with patient Time spent with patient: Greater than 30 minutes (1) Diabetes mellitus Status: Chronic Assessment and plan: Stable well controlled. Current Visit: No Qualifiers: Diabetes mellitus type: type 2 (2) CVA (cerebral vascular accident) Status: Chronic Assessment and plan: Supportive care. Current Visit: Yes Hospitalist: Subjective Interval history: No overnight events. Family is at bedside. Exam - Constitutional Vitals: Period Temp Pulse Resp BP Sys/Valenzuela Pulse Ox Last 24 Hr 97.3 F-99.4 F 89-120 16-20 111-146/63-73 94-100 General appearance: no acute distress - Head Head exam: Present: normocephalic, atraumatic - Eye Eye exam: Present: EOMI Pupils: Present: GENTRY - ENT ENT exam: Present: normal exam - Neck Neck exam: Present: normal inspection - Respiratory Respiratory exam: Present: clear to auscultation bilaterally. Absent: rhonchi, wheezes - Cardiovascular Cardiovascular exam: Present: regular rate and rhythm. Absent: gallop, rubs, systolic murmur - GI/Abdominal GI/Abdominal exam: Present: normal bowel sounds, soft. Absent: distended, firm , guarding, tenderness, rebound - Extremities Exam Extremities exam: Present: other (both lower extremities are within dressing.). Absent: calf tenderness, edema - Neurological Exam Neurological exam: Present: other (left-sided contracted) Results - Labs CBC & BMP: 10/05/16 05:41 10/05/16 05:41 Lab Results: I have reviewed the past 24 hour labs
[2016-10-06] MEDS: AMPICILLIN/SULBACTAM 1,500 MG in SODIUM CHLORIDE 0.9% 100 ML IV SCH ×3 (00:04→15:07)
[2016-10-06 04:49] LABS: Basophils % 0.2 % (0.0-0.8); Eosinophils # 0.1 10*3/uL (0.0-0.87); Hematocrit 22.5 VOL% (42.0-52.0); Hemoglobin 7.5 GM/DL (14.0-18.0); Immature Granulocytes % 0.5 %; Immature Granulocytes Absolute 0.04 #; Lymphocytes # 1.8 10*3/uL (1.4-4.0); Lymphocytes % 21.1 % (21.2-54.2); Mean Corpuscular HGB Conc 33.3 GM/DL (32-36); Mean Corpuscular Hemoglobin 29 PG (27-34); Mean Corpuscular Volume 86.5 FL (87-102); Monocytes # 0.6 10*3/uL (0.11-0.8); Monocytes % 7.3 % (1.7-12.7); Neutrophils % 69.9 % (38.7-73.9); Platelet Count 347 T/CUMM (130-400); Red Cell Distribution Width 11.5 % (9.3-17.3); White Blood Count 8.6 T/CUMM (4-12)
[2016-10-06 05:23] LABS: Osmolality,Calculated 287.6 MOS/KG (273-304); Potassium 3.8 MMOL/L (3.5-5.1)
--- NOTE | 2016-10-06 07:40 | Event Note ---
General Surgery Progress Note Chief complaint This patient is a 66-year-old man admitted with fevers and urinary tract infection who underwent ray amputation of left fifth toe and debridement of left great toe on 10/01/2016. Interval history No events overnight. Tachycardia resolved with the addition of home blood pressure medications and heart rate medications. Patient's pain appears well- controlled. Afebrile Physical exam The incision on the left lateral foot is clean but has some suture line necrosis that is stable compared to yesterday. The remaining wounds are stable and appear clean. Assessment and plan Continue current wound care. The patient will likely need an above-knee amputation ultimately but the family is not ready to consent to this I would be okay with wound care placement at [facility] if he has accepted
[2016-10-06] MEDS: BISOPROLOL/HCTZ 10-6.25 MG TABLET PO SCH (08:31)
[2016-10-06] MEDS: TAMSULOSIN 0.4 MG CAPSULE PO SCH ×2 (08:32→21:08)
[2016-10-06] MEDS: CHLORHEXIDINE 4% SOLN 118 ML BOTTLE TOP SCH (09:31)
--- NOTE | 2016-10-06 13:13 | Hospitalist Progress Note ---
Assessment and Plan - Time spent with patient Time spent with patient: Greater than 30 minutes (1) Diabetes mellitus Status: Chronic Assessment and plan: Stable well controlled. Current Visit: No Qualifiers: Diabetes mellitus type: type 2 (2) CVA (cerebral vascular accident) Status: Chronic Assessment and plan: Supportive care. Current Visit: Yes (3) Anemia Status: Chronic Assessment and plan: Will obtain an anemia panel in the morning. Current Visit: No Qualifiers: Anemia type: unspecified type Qualified Code(s): D64.9 - Anemia, unspecified Hospitalist: Subjective Interval history: No overnight events. Exam - Constitutional Vitals: Period Temp Pulse Resp BP Sys/Valenzuela Pulse Ox Last 24 Hr 97.7 F-99.0 F 77-89 16-20 122-156/65-78 93-98 General appearance: no acute distress - Head Head exam: Present: normocephalic, atraumatic - Eye Eye exam: Present: EOMI Pupils: Present: GENTRY - ENT ENT exam: Present: normal exam - Neck Neck exam: Present: normal inspection - Respiratory Respiratory exam: Present: clear to auscultation bilaterally. Absent: rhonchi, wheezes - Cardiovascular Cardiovascular exam: Present: regular rate and rhythm. Absent: gallop, rubs, systolic murmur - GI/Abdominal GI/Abdominal exam: Present: normal bowel sounds, soft. Absent: distended, firm , guarding, tenderness, rebound - Extremities Exam Extremities exam: Present: other (left sided contracture, lower extremities within dressing). Absent: calf tenderness, edema Results - Labs CBC & BMP: 10/06/16 04:15 10/06/16 04:15 Lab Results: I have reviewed the past 24 hour labs
[2016-10-06] MEDS: LACTATED RINGERS 1,000 ML IV SCH (15:09)
[2016-10-06] MEDS: SIMVASTATIN 40 MG TABLET PO SCH (17:12)
[2016-10-07] MEDS: LACTATED RINGERS 1,000 ML IV SCH ×3 (00:02→21:30)
[2016-10-07 05:08] LABS: Basophils % 0.2 % (0.0-0.8); Eosinophils # 0.1 10*3/uL (0.0-0.87); Eosinophils % 1.2 % (0.00-10.9); Hemoglobin 7.9 GM/DL (14.0-18.0); Immature Granulocytes % 0.4 %; Immature Granulocytes Absolute 0.03 #; Lymphocytes # 1.8 10*3/uL (1.4-4.0); Lymphocytes % 21.6 % (21.2-54.2); Mean Corpuscular HGB Conc 31.6 GM/DL (32-36); Mean Corpuscular Hemoglobin 28 PG (27-34); Monocytes # 0.7 10*3/uL (0.11-0.8); Monocytes % 7.7 % (1.7-12.7); Neutrophils # 5.9 10*3/uL (1.4-7.4); Neutrophils % 68.9 % (38.7-73.9); Platelet Count 400 T/CUMM (130-400); Red Blood Count 2.81 MC/CUMM (3.8-5.5); Red Cell Distribution Width 11.6 % (9.3-17.3); White Blood Count 8.5 T/CUMM (4-12)
--- NOTE | 2016-10-07 05:28 | Event Note ---
General Surgery Progress Note Chief complaint This patient is a 66-year-old man admitted with fevers and urinary tract infection who underwent ray amputation of left fifth toe and debridement of left great toe on 10/01/2016. Interval history No events overnight. Physical exam The incision on the left lateral foot is clean but has some suture line necrosis that is stable compared to yesterday. The remaining wounds are stable and appear clean. Assessment and plan Continue current wound care. The patient will likely need an above-knee amputation ultimately but the family is not ready to consent to this I would be okay with wound care placement at [facility] if he is accepted
[2016-10-07 05:48] LABS: % Iron Saturation 21.7 % (18-50); Ferritin 281.1 ng/ml (26-388); Osmolality,Calculated 279.1 MOS/KG (273-304)
[2016-10-07 05:53] LABS: Folate 9.4 NG/ML (5.4-24.0)
[2016-10-07] MEDS: AMPICILLIN/SULBACTAM 1,500 MG in SODIUM CHLORIDE 0.9% 100 ML IV SCH ×4 (07:11→23:08)
[2016-10-07] MEDS: TAMSULOSIN 0.4 MG CAPSULE PO SCH ×2 (09:23→20:16)
[2016-10-07] MEDS: BISOPROLOL/HCTZ 10-6.25 MG TABLET PO SCH (09:24)
--- NOTE | 2016-10-07 13:02 | Hospitalist Progress Note ---
Assessment and Plan - Time spent with patient Time spent with patient: Greater than 30 minutes (1) Diabetes mellitus Status: Chronic Assessment and plan: Stable well controlled. Current Visit: No Qualifiers: Diabetes mellitus type: type 2 (2) CVA (cerebral vascular accident) Status: Chronic Assessment and plan: Supportive care. Current Visit: Yes (3) Anemia, chronic disease Status: Acute Assessment and plan: Transfusions prn. Current Visit: Yes Hospitalist: Subjective Interval history: No complaints, no overnight events. Exam - Constitutional Vitals: Period Temp Pulse Resp BP Sys/Valenzuela Pulse Ox Last 24 Hr 97.8 F-98.3 F 74-82 16-20 128-157/66-92 96-97 General appearance: no acute distress - Head Head exam: Present: normocephalic, atraumatic - Eye Eye exam: Present: EOMI Pupils: Present: GENTRY - ENT ENT exam: Present: normal exam - Neck Neck exam: Present: normal inspection - Respiratory Respiratory exam: Present: clear to auscultation bilaterally. Absent: rhonchi, wheezes - Cardiovascular Cardiovascular exam: Present: regular rate and rhythm. Absent: gallop, rubs, systolic murmur - GI/Abdominal GI/Abdominal exam: Present: normal bowel sounds, soft. Absent: distended, firm , guarding, tenderness, rebound - Extremities Exam Extremities exam: Present: other (lower extremities within dressing). Absent: calf tenderness, edema Results - Labs CBC & BMP: 10/07/16 03:45 10/07/16 03:46 Lab Results: I have reviewed the past 24 hour labs
[2016-10-07] MEDS: SIMVASTATIN 40 MG TABLET PO SCH (18:15)
[2016-10-07] MEDS: CHLORHEXIDINE 4% SOLN 118 ML BOTTLE TOP SCH (18:30)
[2016-10-08 06:18] LABS: Basophils % 0.4 % (0.0-0.8); Eosinophils # 0.1 10*3/uL (0.0-0.87); Eosinophils % 0.8 % (0.00-10.9); Hematocrit 25.7 VOL% (42.0-52.0); Immature Granulocytes % 0.4 %; Immature Granulocytes Absolute 0.03 #; Lymphocytes # 1.5 10*3/uL (1.4-4.0); Lymphocytes % 18.9 % (21.2-54.2); Mean Corpuscular HGB Conc 31.1 GM/DL (32-36); Mean Corpuscular Hemoglobin 28 PG (27-34); Mean Corpuscular Volume 89.2 FL (87-102); Mean Platelet Volume 8.7 FL (9.6-12.0); Monocytes # 0.7 10*3/uL (0.11-0.8); Monocytes % 8.8 % (1.7-12.7); Neutrophils # 5.5 10*3/uL (1.4-7.4); Neutrophils % 70.7 % (38.7-73.9); Platelet Count 409 T/CUMM (130-400); Red Blood Count 2.88 MC/CUMM (3.8-5.5); Red Cell Distribution Width 11.8 % (9.3-17.3); White Blood Count 7.8 T/CUMM (4-12)
[2016-10-08 06:53] LABS: Calcium 8.3 MG/DL (8.5-10.1); Potassium 3.9 MMOL/L (3.5-5.1)
--- NOTE | 2016-10-08 07:06 | Event Note ---
General Surgery Progress Note Chief complaint This patient is a 66-year-old man admitted with fevers and urinary tract infection who underwent ray amputation of left fifth toe and debridement of left great toe on 10/01/2016. Interval history The patient's is not sure about his disposition. We are awaiting social work investigation for placement options. She does not feel that she can take him home with his current wounds. Physical exam The incision on the left lateral foot is clean but has some suture line necrosis that is stable compared to yesterday. There is no erythema or drainage from this wound. The remaining wounds are stable and appear clean. Assessment and plan Continue current wound care. The patient will likely need an above-knee amputation ultimately but the family is not ready to consent to this I would be okay with wound care placement at [facility] if he is accepted. We will ask the social organization professor to follow up with family today about placement options but likely his approval process is being done at the [facility] and will just take some time.
[2016-10-08] MEDS: CHLORHEXIDINE 4% SOLN 118 ML BOTTLE TOP SCH (08:00)
[2016-10-08] MEDS: AMPICILLIN/SULBACTAM 1,500 MG in SODIUM CHLORIDE 0.9% 100 ML IV SCH ×2 (08:43→16:06)
[2016-10-08] MEDS: TAMSULOSIN 0.4 MG CAPSULE PO SCH ×2 (08:43→21:40)
[2016-10-08] MEDS: BISOPROLOL/HCTZ 10-6.25 MG TABLET PO SCH (08:43)
--- NOTE | 2016-10-08 12:49 | Hospitalist Progress Note ---
Assessment and Plan - Time spent with patient Time spent with patient: Greater than 30 minutes (1) Diabetes mellitus Status: Chronic Assessment and plan: Stable well controlled. Current Visit: No Qualifiers: Diabetes mellitus type: type 2 (2) CVA (cerebral vascular accident) Status: Chronic Assessment and plan: Supportive care. Current Visit: Yes (3) Anemia, chronic disease Status: Acute Assessment and plan: Transfusions prn. Current Visit: Yes Hospitalist: Subjective Interval history: No complaints, no overnight events. Exam - Constitutional Vitals: Period Temp Pulse Resp BP Sys/Valenzuela Pulse Ox Last 24 Hr 98.2 F-99.0 F 76-81 18-19 136-155/58-82 94-100 General appearance: no acute distress - Head Head exam: Present: normocephalic, atraumatic - Eye Eye exam: Present: EOMI Pupils: Present: GENTRY - ENT ENT exam: Present: normal exam - Neck Neck exam: Present: normal inspection - Respiratory Respiratory exam: Present: clear to auscultation bilaterally. Absent: rhonchi, wheezes - Cardiovascular Cardiovascular exam: Present: regular rate and rhythm. Absent: gallop, rubs, systolic murmur - GI/Abdominal GI/Abdominal exam: Present: normal bowel sounds, soft. Absent: distended, firm , guarding, tenderness, rebound - Extremities Exam Extremities exam: Present: normal inspection, other (feet within dressing). Absent: calf tenderness, edema Results - Labs CBC & BMP: 10/08/16 05:48 10/08/16 05:48 Lab Results: I have reviewed the past 24 hour labs
[2016-10-08] MEDS: LACTATED RINGERS 1,000 ML IV SCH ×2 (12:50→12:56)
[2016-10-08] MEDS: SIMVASTATIN 40 MG TABLET PO SCH (17:39)
[2016-10-09] MEDS: AMPICILLIN/SULBACTAM 1,500 MG in SODIUM CHLORIDE 0.9% 100 ML IV SCH ×4 (01:23→23:14)
[2016-10-09] MEDS: LACTATED RINGERS 1,000 ML IV SCH ×3 (02:10→23:14)
[2016-10-09] MEDS: CHLORHEXIDINE 4% SOLN 118 ML BOTTLE TOP SCH (07:45)
--- NOTE | 2016-10-09 09:23 | Event Note ---
General Surgery Progress Note Chief complaint This patient is a 66-year-old man admitted with fevers and urinary tract infection who underwent ray amputation of left fifth toe and debridement of left great toe on 10/01/2016. Interval history No events overnight. Awaiting transfer to wound care center. Physical exam The incision on the left lateral foot is clean but has some suture line necrosis that is stable compared to yesterday. The wound is slightly soft but there is no expressible purulence. There is no drainage and minimal erythema around the edge of the wound. The remaining wounds are stable and appear clean. Assessment and plan Continue current wound care. The patient will likely need an above-knee amputation ultimately but the family is not ready to consent to this, however we did discuss this today. I would be okay with wound care placement at [facility] if he is accepted. The patient is awaiting approval by the [facility].
[2016-10-09] MEDS: TAMSULOSIN 0.4 MG CAPSULE PO SCH ×2 (11:15→20:38)
[2016-10-09] MEDS: BISOPROLOL/HCTZ 10-6.25 MG TABLET PO SCH (11:15)
--- NOTE | 2016-10-09 16:48 | Hospitalist Progress Note ---
Assessment and Plan - Time spent with patient Time spent with patient: Greater than 30 minutes (1) Diabetes mellitus Status: Chronic Assessment and plan: Stable well controlled. Current Visit: No Qualifiers: Diabetes mellitus type: type 2 (2) CVA (cerebral vascular accident) Status: Chronic Assessment and plan: Supportive care. Current Visit: Yes (3) Anemia, chronic disease Status: Acute Assessment and plan: Transfusions prn. Current Visit: Yes Hospitalist: Subjective Interval history: No complaints, no overnight events. Exam - Constitutional Vitals: Period Temp Pulse Resp BP Sys/Valenzuela Pulse Ox Last 24 Hr 98.3 F-99.2 F 81-89 17-18 125-165/60-75 92-97 General appearance: no acute distress - Head Head exam: Present: normocephalic, atraumatic - Eye Eye exam: Present: EOMI Pupils: Present: GENTRY - ENT ENT exam: Present: normal exam - Neck Neck exam: Present: normal inspection - Respiratory Respiratory exam: Present: clear to auscultation bilaterally. Absent: rhonchi, wheezes - Cardiovascular Cardiovascular exam: Present: regular rate and rhythm. Absent: gallop, rubs, systolic murmur - GI/Abdominal GI/Abdominal exam: Present: normal bowel sounds, soft. Absent: distended, firm , guarding, tenderness, rebound - Extremities Exam Extremities exam: Present: other (feet within dressing). Absent: calf tenderness, edema Results - Labs CBC & BMP: 10/08/16 05:48 10/08/16 05:48 Lab Results: I have reviewed the past 24 hour labs
[2016-10-09] MEDS: SIMVASTATIN 40 MG TABLET PO SCH (17:56)
[2016-10-10 06:04] LABS: Basophils % 0.2 % (0.0-0.8); Eosinophils # 0.1 10*3/uL (0.0-0.87); Eosinophils % 0.8 % (0.00-10.9); Hematocrit 24.7 VOL% (42.0-52.0); Hemoglobin 7.8 GM/DL (14.0-18.0); Immature Granulocytes % 0.3 %; Immature Granulocytes Absolute 0.03 #; Lymphocytes # 2.1 10*3/uL (1.4-4.0); Lymphocytes % 23.3 % (21.2-54.2); Mean Corpuscular HGB Conc 31.6 GM/DL (32-36); Mean Corpuscular Hemoglobin 29 PG (27-34); Mean Corpuscular Volume 91.1 FL (87-102); Mean Platelet Volume 8.9 FL (9.6-12.0); Monocytes # 0.8 10*3/uL (0.11-0.8); Monocytes % 9.5 % (1.7-12.7); Neutrophils # 5.8 10*3/uL (1.4-7.4); Neutrophils % 65.9 % (38.7-73.9); Platelet Count 419 T/CUMM (130-400); Red Blood Count 2.71 MC/CUMM (3.8-5.5); Red Cell Distribution Width 12.4 % (9.3-17.3); White Blood Count 8.8 T/CUMM (4-12)
[2016-10-10 06:28] LABS: Calcium 8.3 MG/DL (8.5-10.1); Potassium 4.3 MMOL/L (3.5-5.1)
[2016-10-10] MEDS: AMPICILLIN/SULBACTAM 1,500 MG in SODIUM CHLORIDE 0.9% 100 ML IV SCH ×3 (09:15→23:50)
[2016-10-10] MEDS: TAMSULOSIN 0.4 MG CAPSULE PO SCH ×2 (09:16→21:30)
[2016-10-10] MEDS: BISOPROLOL/HCTZ 10-6.25 MG TABLET PO SCH (09:16)
[2016-10-10] MEDS: CHLORHEXIDINE 4% SOLN 118 ML BOTTLE TOP SCH (13:30)
--- NOTE | 2016-10-10 13:52 | Event Note ---
No significant changes. Continue local wound care. Would probably benefit from higher amputation on the left.
--- NOTE | 2016-10-10 15:40 | Hospitalist Progress Note ---
Assessment and Plan - Time spent with patient Time spent with patient: Greater than 30 minutes (1) Diabetes mellitus Status: Chronic Assessment and plan: Stable well controlled. Current Visit: No Qualifiers: Diabetes mellitus type: type 2 (2) CVA (cerebral vascular accident) Status: Chronic Assessment and plan: Supportive care. Current Visit: Yes (3) Anemia, chronic disease Status: Acute Assessment and plan: Transfusions prn. Current Visit: Yes Hospitalist: Subjective Interval history: No complaints, no overnight events. Exam - Constitutional Vitals: Period Temp Pulse Resp BP Sys/Valenzuela Pulse Ox Last 24 Hr 97.7 F-98.7 F 75-81 14-19 124-155/63-78 94-97 General appearance: no acute distress - Head Head exam: Present: normocephalic, atraumatic - Eye Eye exam: Present: EOMI Pupils: Present: GENTRY - ENT ENT exam: Present: normal exam - Neck Neck exam: Present: normal inspection - Respiratory Respiratory exam: Present: clear to auscultation bilaterally. Absent: rhonchi, wheezes - Cardiovascular Cardiovascular exam: Present: regular rate and rhythm. Absent: gallop, rubs, systolic murmur - GI/Abdominal GI/Abdominal exam: Present: normal bowel sounds, soft. Absent: distended, firm , guarding, tenderness, rebound - Extremities Exam Extremities exam: Present: normal inspection. Absent: calf tenderness, edema Results - Labs CBC & BMP: 10/10/16 04:42 10/10/16 04:42 Lab Results: I have reviewed the past 24 hour labs
[2016-10-10] MEDS: LACTATED RINGERS 1,000 ML IV SCH (16:37)
[2016-10-10] MEDS: SIMVASTATIN 40 MG TABLET PO SCH (17:50)
[2016-10-11] MEDS: LACTATED RINGERS 1,000 ML IV SCH ×3 (06:57→21:08)
[2016-10-11] MEDS: AMPICILLIN/SULBACTAM 1,500 MG in SODIUM CHLORIDE 0.9% 100 ML IV SCH ×3 (08:22→22:43)
[2016-10-11] MEDS: BISOPROLOL/HCTZ 10-6.25 MG TABLET PO SCH (08:23)
[2016-10-11] MEDS: TAMSULOSIN 0.4 MG CAPSULE PO SCH ×2 (08:23→21:02)
[2016-10-11] MEDS: CHLORHEXIDINE 4% SOLN 118 ML BOTTLE TOP SCH (13:30)
--- NOTE | 2016-10-11 13:58 | Hospitalist Progress Note ---
Assessment and Plan - Time spent with patient Time spent with patient: Greater than 30 minutes (1) Diabetes mellitus Status: Chronic Assessment and plan: Stable well controlled. Current Visit: No Qualifiers: Diabetes mellitus type: type 2 (2) CVA (cerebral vascular accident) Status: Chronic Assessment and plan: Supportive care. Current Visit: Yes (3) Anemia, chronic disease Status: Acute Assessment and plan: Transfusions prn. Current Visit: Yes Hospitalist: Subjective Interval history: He has no complaints, appears to be in good spirits. Exam - Constitutional Vitals: Period Temp Pulse Resp BP Sys/Valenzuela Pulse Ox Last 24 Hr 97.4 F-98.8 F 70-80 16-20 144-179/69-92 96-100 General appearance: no acute distress - Head Head exam: Present: normocephalic, atraumatic - Eye Eye exam: Present: EOMI Pupils: Present: GENTRY - ENT ENT exam: Present: normal exam - Neck Neck exam: Present: normal inspection - Respiratory Respiratory exam: Present: clear to auscultation bilaterally. Absent: rhonchi, wheezes - Cardiovascular Cardiovascular exam: Present: regular rate and rhythm. Absent: gallop, rubs, systolic murmur - GI/Abdominal GI/Abdominal exam: Present: normal bowel sounds, soft. Absent: distended, firm , guarding, tenderness, rebound - Extremities Exam Extremities exam: Present: normal inspection. Absent: calf tenderness, edema Results - Labs CBC & BMP: 10/10/16 04:42 10/10/16 04:42 Lab Results: I have reviewed the past 24 hour labs
[2016-10-11] MEDS: SIMVASTATIN 40 MG TABLET PO SCH (18:32)
--- NOTE | 2016-10-12 06:52 | Event Note ---
General Surgery Progress Note Chief complaint This patient is a 66-year-old man admitted with fevers and urinary tract infection who underwent ray amputation of left fifth toe and debridement of left great toe on 10/01/2016. Interval history No events over the weekend. Awaiting transfer to wound care center. Physical exam The incision on the left lateral foot is clean but has some suture line necrosis that is stable compared to yesterday. The wound is slightly soft but there is no expressible purulence. There is no drainage and minimal erythema around the edge of the wound. The remaining wounds are stable and appear clean. Assessment and plan Continue current wound care. The patient will likely need an above-knee amputation ultimately but the family is not ready to consent to this. This was not discussed again today. I would be okay with wound care placement at [facility] if he is accepted. [facility] The patient's states that he is developing a fungal rash in his buttocks. I will order nystatin powder for this
[2016-10-12] MEDS: AMPICILLIN/SULBACTAM 1,500 MG in SODIUM CHLORIDE 0.9% 100 ML IV SCH ×3 (09:25→23:02)
[2016-10-12] MEDS: TAMSULOSIN 0.4 MG CAPSULE PO SCH ×2 (09:27→21:26)
[2016-10-12] MEDS: BISOPROLOL/HCTZ 10-6.25 MG TABLET PO SCH (09:27)
--- NOTE | 2016-10-12 10:44 | Hospitalist Progress Note ---
Assessment and Plan - Time spent with patient Time spent with patient: Greater than 30 minutes (1) Diabetes mellitus Status: Chronic Assessment and plan: Stable well controlled. Current Visit: No Qualifiers: Diabetes mellitus type: type 2 (2) CVA (cerebral vascular accident) Status: Chronic Assessment and plan: Supportive care. Current Visit: Yes (3) Anemia, chronic disease Status: Acute Assessment and plan: Transfusions prn. WIll start ferrous sulfate. Current Visit: Yes Hospitalist: Subjective Interval history: No complains this morning. Exam - Constitutional Vitals: Period Temp Pulse Resp BP Sys/Valenzuela Pulse Ox Last 24 Hr 97.2 F-98.6 F 72-80 14-20 124-145/64-77 96-99 General appearance: no acute distress - Head Head exam: Present: normocephalic, atraumatic - Eye Eye exam: Present: EOMI Pupils: Present: GENTRY - ENT ENT exam: Present: normal exam - Neck Neck exam: Present: normal inspection - Respiratory Respiratory exam: Present: clear to auscultation bilaterally. Absent: rhonchi, wheezes - Cardiovascular Cardiovascular exam: Present: regular rate and rhythm. Absent: gallop, rubs, systolic murmur - GI/Abdominal GI/Abdominal exam: Present: normal bowel sounds, soft. Absent: distended, firm , guarding, tenderness, rebound - Extremities Exam Extremities exam: Present: normal inspection. Absent: calf tenderness, edema Results - Labs CBC & BMP: 10/10/16 04:42 10/10/16 04:42 Lab Results: I have reviewed the past 24 hour labs
[2016-10-12] MEDS: FERROUS SULFATE 325 MG TABLET PO SCH ×2 (11:07→21:26)
[2016-10-12] MEDS: LACTATED RINGERS 1,000 ML IV SCH (11:07)
[2016-10-12] MEDS: NYSTATIN POWDER 15 GM BOTTLE TOP SCH ×2 (11:17→21:30)
[2016-10-12] MEDS: SIMVASTATIN 40 MG TABLET PO SCH (18:07)
[2016-10-13] MEDS: LACTATED RINGERS 1,000 ML IV SCH ×2 (01:02→16:47)
--- NOTE | 2016-10-13 07:41 | Event Note ---
General Surgery Progress Note Chief complaint This patient is a 66-year-old man admitted with fevers and urinary tract infection who underwent ray amputation of left fifth toe and debridement of left great toe on 10/01/2016. Interval history No events overnight. Awaiting transfer to specialty wound care center at [place]. Physical exam The incision on the left lateral foot is clean but has some suture line necrosis that is stable compared to yesterday. The wound is slightly soft but there is no expressible purulence. There is no drainage and minimal erythema around the edge of the wound. The remaining wounds are stable and appear clean. Assessment and plan Continue current wound care. The patient will likely need an above-knee amputation ultimately but the family is not ready to consent to this. This was not discussed again today but the family is aware that this is an option. I will continue to follow the patient at specialty and see him about once a week to make sure that his wounds do not worsen.
[2016-10-13] MEDS: NYSTATIN POWDER 15 GM BOTTLE TOP SCH ×2 (08:30→22:39)
[2016-10-13] MEDS: AMPICILLIN/SULBACTAM 1,500 MG in SODIUM CHLORIDE 0.9% 100 ML IV SCH ×3 (09:44→22:36)
[2016-10-13] MEDS: TAMSULOSIN 0.4 MG CAPSULE PO SCH ×2 (09:45→22:36)
[2016-10-13] MEDS: FERROUS SULFATE 325 MG TABLET PO SCH ×2 (09:45→22:36)
[2016-10-13] MEDS: BISOPROLOL/HCTZ 10-6.25 MG TABLET PO SCH (09:45)
--- NOTE | 2016-10-13 10:22 | Hospitalist Progress Note ---
Assessment and Plan - Time spent with patient Time spent with patient: Greater than 30 minutes (1) Diabetes mellitus Status: Chronic Assessment and plan: Stable well controlled. Current Visit: No Qualifiers: Diabetes mellitus type: type 2 (2) CVA (cerebral vascular accident) Status: Chronic Assessment and plan: Supportive care. Current Visit: Yes (3) Anemia, chronic disease Status: Acute Assessment and plan: Transfusions prn. Ferrous sulfate. Current Visit: Yes Hospitalist: Subjective Interval history: No complaints, no overnight events. Exam - Constitutional Vitals: Period Temp Pulse Resp BP Sys/Valenzuela Pulse Ox Last 24 Hr 98.0 F-98.7 F 73-75 16-19 125-142/64-72 94-99 General appearance: no acute distress - Head Head exam: Present: normocephalic, atraumatic - Eye Eye exam: Present: EOMI Pupils: Present: GENTRY - ENT ENT exam: Present: normal exam - Neck Neck exam: Present: normal inspection - Respiratory Respiratory exam: Present: clear to auscultation bilaterally. Absent: rhonchi, wheezes - Cardiovascular Cardiovascular exam: Present: regular rate and rhythm. Absent: gallop, rubs, systolic murmur - GI/Abdominal GI/Abdominal exam: Present: normal bowel sounds, soft. Absent: distended, firm , guarding, tenderness, rebound - Extremities Exam Extremities exam: Present: normal inspection. Absent: calf tenderness, edema Results - Labs CBC & BMP: 10/10/16 04:42 10/10/16 04:42 Lab Results: I have reviewed the past 24 hour labs Specialty Discharge - Follow Up or Referrals Follow up with: Angelo Quintanilla MD [Physician] -
[2016-10-13] MEDS: CHLORHEXIDINE 4% SOLN 118 ML BOTTLE TOP SCH (10:40)
[2016-10-13] MEDS: LACTULOSE 20 GM/30 ML UDCUP PO PRN (16:52)
[2016-10-13] MEDS: SIMVASTATIN 40 MG TABLET PO SCH (18:08)
[2016-10-14 05:51] LABS: Basophils % 0.2 % (0.0-0.8); Eosinophils % 0.2 % (0.00-10.9); Hematocrit 27.9 VOL% (42.0-52.0); Immature Granulocytes % 0.5 %; Immature Granulocytes Absolute 0.04 #; Lymphocytes # 1.1 10*3/uL (1.4-4.0); Lymphocytes % 13.4 % (21.2-54.2); Mean Corpuscular HGB Conc 32.3 GM/DL (32-36); Mean Corpuscular Hemoglobin 29 PG (27-34); Mean Corpuscular Volume 88.9 FL (87-102); Mean Platelet Volume 9.3 FL (9.6-12.0); Monocytes # 0.4 10*3/uL (0.11-0.8); Monocytes % 5.1 % (1.7-12.7); Neutrophils # 6.6 10*3/uL (1.4-7.4); Neutrophils % 80.6 % (38.7-73.9); Platelet Count 308 T/CUMM (130-400); Red Blood Count 3.14 MC/CUMM (3.8-5.5); Red Cell Distribution Width 13.2 % (9.3-17.3); White Blood Count 8.2 T/CUMM (4-12)
[2016-10-14 06:34] LABS: Calcium 8.6 MG/DL (8.5-10.1); Osmolality,Calculated 278.4 MOS/KG (273-304); Potassium 4.1 MMOL/L (3.5-5.1)
--- NOTE | 2016-10-14 07:24 | Event Note ---
General Surgery Progress Note Chief complaint This patient is a 66-year-old man admitted with fevers and urinary tract infection who underwent ray amputation of left fifth toe and debridement of left great toe on 10/01/2016. Interval history No events overnight. Awaiting transfer to specialty wound care center at [place]. Physical exam There is no change of the foot wounds. Assessment and plan Continue current wound care. The patient will likely need an above-knee amputation ultimately but the family is not ready to consent to this. This was not discussed again today but the family is aware that this is an option. I will continue to follow the patient at specialty and see him about once a week to make sure that his wounds do not worsen.
--- NOTE | 2016-10-14 09:52 | Hospitalist Progress Note ---
Assessment and Plan - Time spent with patient Time spent with patient: Greater than 30 minutes (1) Diabetes mellitus Status: Chronic Assessment and plan: Stable well controlled. Current Visit: No Qualifiers: Diabetes mellitus type: type 2 (2) CVA (cerebral vascular accident) Status: Chronic Assessment and plan: Supportive care. Current Visit: Yes (3) Anemia, chronic disease Status: Acute Assessment and plan: Transfusions prn. Ferrous sulfate. Current Visit: Yes Hospitalist: Subjective Interval history: No events overnight, no complaints. Exam - Constitutional Vitals: Period Temp Pulse Resp BP Sys/Valenzuela Pulse Ox Last 24 Hr 97.5 F-98.5 F 70-84 16-20 142-189/67-92 94-96 General appearance: no acute distress - Head Head exam: Present: normocephalic, atraumatic - Eye Eye exam: Present: EOMI Pupils: Present: GENTRY - ENT ENT exam: Present: normal exam - Neck Neck exam: Present: normal inspection - Respiratory Respiratory exam: Present: clear to auscultation bilaterally. Absent: rhonchi, wheezes - Cardiovascular Cardiovascular exam: Present: regular rate and rhythm. Absent: gallop, rubs, systolic murmur - GI/Abdominal GI/Abdominal exam: Present: normal bowel sounds, soft. Absent: distended, firm , guarding, tenderness, rebound - Extremities Exam Extremities exam: Present: normal inspection. Absent: calf tenderness, edema Results - Labs CBC & BMP: 10/14/16 05:25 10/14/16 05:25 Lab Results: I have reviewed the past 24 hour labs Specialty Discharge - Follow Up or Referrals Follow up with: Angelo Quintanilla MD [Physician] -
[2016-10-14] MEDS: LACTATED RINGERS 1,000 ML IV SCH ×2 (10:03→22:11)
[2016-10-14] MEDS: CHLORHEXIDINE 4% SOLN 118 ML BOTTLE TOP SCH (10:04)
[2016-10-14] MEDS: TAMSULOSIN 0.4 MG CAPSULE PO SCH ×2 (10:04→21:12)
[2016-10-14] MEDS: FERROUS SULFATE 325 MG TABLET PO SCH ×2 (10:04→21:12)
[2016-10-14] MEDS: BISOPROLOL/HCTZ 10-6.25 MG TABLET PO SCH (10:04)
[2016-10-14] MEDS: NYSTATIN POWDER 15 GM BOTTLE TOP SCH ×2 (10:05→21:13)
[2016-10-14] MEDS: SIMVASTATIN 40 MG TABLET PO SCH (17:31)
[2016-10-15] MEDS: CHLORHEXIDINE 4% SOLN 118 ML BOTTLE TOP SCH (07:35)
[2016-10-15] MEDS: BISOPROLOL/HCTZ 10-6.25 MG TABLET PO SCH (08:57)
[2016-10-15] MEDS: TAMSULOSIN 0.4 MG CAPSULE PO SCH ×2 (08:57→20:31)
[2016-10-15] MEDS: FERROUS SULFATE 325 MG TABLET PO SCH ×2 (08:57→20:31)
[2016-10-15] MEDS: NYSTATIN POWDER 15 GM BOTTLE TOP SCH ×2 (08:58→20:31)
[2016-10-15] MEDS: LACTATED RINGERS 1,000 ML IV SCH (11:51)
--- NOTE | 2016-10-15 13:02 | Hospitalist Progress Note ---
Assessment and Plan - Time spent with patient Time spent with patient: Greater than 30 minutes (1) Diabetes mellitus Status: Chronic Assessment and plan: Stable well controlled. Current Visit: No Qualifiers: Diabetes mellitus type: type 2 (2) CVA (cerebral vascular accident) Status: Chronic Assessment and plan: Supportive care. Current Visit: Yes (3) Anemia, chronic disease Status: Acute Assessment and plan: Transfusions prn. Ferrous sulfate. Current Visit: Yes (4) Decubitus skin ulcer Status: Chronic Assessment and plan: Will start ceftaroline. Surgery on board. Family is considering amputation. Current Visit: Yes Qualifiers: Pressure ulcer location: dorsum of foot Hospitalist: Subjective Interval history: Patient had a mild fever last night. Pus was expressed from foot wound. Exam - Constitutional Vitals: Period Temp Pulse Resp BP Sys/Valenzuela Pulse Ox Last 24 Hr 98.9 F-100.1 F 74-84 18-20 126-152/64-72 95-97 General appearance: no acute distress - Head Head exam: Present: normocephalic, atraumatic - Eye Eye exam: Present: EOMI Pupils: Present: GENTRY - ENT ENT exam: Present: normal exam - Neck Neck exam: Present: normal inspection - Respiratory Respiratory exam: Present: clear to auscultation bilaterally. Absent: rhonchi, wheezes - Cardiovascular Cardiovascular exam: Present: regular rate and rhythm. Absent: gallop, rubs, systolic murmur - GI/Abdominal GI/Abdominal exam: Present: normal bowel sounds, soft. Absent: distended, firm , guarding, tenderness, rebound - Extremities Exam Extremities exam: Present: normal inspection. Absent: calf tenderness, edema Results - Labs CBC & BMP: 10/14/16 05:25 10/14/16 05:25 Lab Results: I have reviewed the past 24 hour labs Specialty Discharge - Follow Up or Referrals Follow up with: Angelo Quintanilla MD [Physician] -
[2016-10-15] MEDS: CEFTAROLINE 600 MG in SODIUM CHLORIDE 0.9% 100 ML IV SCH (14:12)
[2016-10-15] MEDS: SIMVASTATIN 40 MG TABLET PO SCH (17:20)
--- NOTE | 2016-10-15 17:42 | Event Note ---
General Surgery Progress Note Chief complaint This patient is a 66-year-old man admitted with fevers and urinary tract infection who underwent ray amputation of left fifth toe and debridement of left great toe on 10/01/2016. Interval history The patient has some purulence draining from his left great toe wounds and had a fever last night. I actually saw him much earlier in the day today but is having had a chance to write a note until now. Because of what happened with this additional wound I have revisited the issue of above-knee amputation with the patient's and see after thinking about it has agreed to proceed with this procedure. Physical exam There is purulent drainage from the left great toe eschar Assessment and plan After attempting limb salvage for several weeks now the patient has developed a new infection of his left great toe eschar which had previously been dry. Because he has a severe contracture and completely useless left lower extremity secondary to his stroke and he has obvious peripheral vascular disease, I have recommended that the best option for this patient's treatment would be a left above-knee amputation. This has been discussed in previous encounters with the patient's and at this point in time she wants to proceed and have the surgery done so we can move on with his recovery. I have discussed the risks, benefits, and alternatives of this operation with the patient and his and the expected outcomes have been reviewed. We will proceed with operation tomorrow.
[2016-10-16] MEDS: CEFTAROLINE 600 MG in SODIUM CHLORIDE 0.9% 100 ML IV SCH ×2 (00:33→13:00)
[2016-10-16] MEDS: LACTATED RINGERS 1,000 ML IV SCH ×3 (03:17→23:40)
[2016-10-16 06:43] LABS: Basophils % 0.2 % (0.0-0.8); Eosinophils % 0.3 % (0.00-10.9); Hematocrit 25.7 VOL% (42.0-52.0); Hemoglobin 8.3 GM/DL (14.0-18.0); Immature Granulocytes % 0.3 %; Immature Granulocytes Absolute 0.02 #; Lymphocytes # 1.1 10*3/uL (1.4-4.0); Lymphocytes % 18.4 % (21.2-54.2); Mean Corpuscular HGB Conc 32.3 GM/DL (32-36); Mean Corpuscular Hemoglobin 28 PG (27-34); Mean Corpuscular Volume 87.7 FL (87-102); Mean Platelet Volume 9.1 FL (9.6-12.0); Monocytes # 0.7 10*3/uL (0.11-0.8); Neutrophils # 4.3 10*3/uL (1.4-7.4); Neutrophils % 69.8 % (38.7-73.9); Platelet Count 306 T/CUMM (130-400); Red Blood Count 2.93 MC/CUMM (3.8-5.5); Red Cell Distribution Width 12.9 % (9.3-17.3); White Blood Count 6.1 T/CUMM (4-12)
[2016-10-16 07:16] LABS: Osmolality,Calculated 276.4 MOS/KG (273-304); Potassium 3.8 MMOL/L (3.5-5.1)
[2016-10-16] MEDS: BISOPROLOL/HCTZ 10-6.25 MG TABLET PO SCH (08:49)
[2016-10-16] MEDS: TAMSULOSIN 0.4 MG CAPSULE PO SCH ×2 (09:00→21:14)
[2016-10-16] MEDS: CHLORHEXIDINE 4% SOLN 118 ML BOTTLE TOP SCH (09:00)
[2016-10-16] MEDS: FERROUS SULFATE 325 MG TABLET PO SCH ×2 (09:00→21:14)
--- NOTE | 2016-10-16 10:04 | Hospitalist Progress Note ---
Assessment and Plan - Time spent with patient Time spent with patient: Greater than 30 minutes (1) Diabetes mellitus Status: Chronic Assessment and plan: Stable well controlled. Current Visit: No Qualifiers: Diabetes mellitus type: type 2 (2) CVA (cerebral vascular accident) Status: Chronic Assessment and plan: Supportive care. Current Visit: Yes (3) Anemia, chronic disease Status: Acute Assessment and plan: Transfusions prn. Ferrous sulfate. Current Visit: Yes (4) Decubitus skin ulcer Status: Chronic Assessment and plan: Continue ceftaroline. Surgery on board. Surgery today. Current Visit: Yes Qualifiers: Pressure ulcer location: dorsum of foot Hospitalist: Subjective Interval history: no complaints this morning, no overnight events. Exam - Constitutional Vitals: Period Temp Pulse Resp BP Sys/Valenzuela Pulse Ox Last 24 Hr 97.8 F-98.9 F 69-81 16-18 134-152/64-77 94-98 General appearance: no acute distress - Head Head exam: Present: normocephalic, atraumatic - Eye Eye exam: Present: EOMI Pupils: Present: GENTRY - ENT ENT exam: Present: normal exam - Neck Neck exam: Present: normal inspection - Respiratory Respiratory exam: Present: clear to auscultation bilaterally. Absent: rhonchi, wheezes - Cardiovascular Cardiovascular exam: Present: regular rate and rhythm. Absent: gallop, rubs, systolic murmur - GI/Abdominal GI/Abdominal exam: Present: normal bowel sounds, soft. Absent: distended, firm , guarding, tenderness, rebound - Extremities Exam Extremities exam: Present: normal inspection. Absent: calf tenderness, edema Results - Labs CBC & BMP: 10/16/16 05:27 10/16/16 05:27 Lab Results: I have reviewed the past 24 hour labs Specialty Discharge - Follow Up or Referrals Follow up with: Angelo Quintanilla MD [Physician] -
[2016-10-16] MEDS ORDERED: PHENYLEPHRINE 1 MG/10 ML SYRINGE IV ONE (11:34)
--- NOTE | 2016-10-16 12:43 | Operative Note ---
Date of procedure: 10/16/16 Pre-op diagnosis: Nonhealing wounds left foot with left knee contracture Post-op diagnosis: same Procedure: Preoperative diagnosis Nonhealing and infected wounds of left foot with left knee contracture secondary to stroke Postoperative diagnosis Same Procedures performed Left above-knee amputation Findings Complete chronic total occlusion of the SFA was encountered. An above-knee amputation was performed and there was healthy tissue is in good blood flow. Complications None apparent Specimen Left Lower leg Anesthesia Spinal Blood loss 100 mL Indications 66-year-old man with prior stroke and severe contracture of the left knee developed wound on the left foot that failed to heal and became recurrently infected. Patient had evidence of peripheral vascular disease but was not a candidate for revascularization due to his contracture and nonambulatory status. I recommended above-knee dictation to the patient and his and they agreed to proceed. We discussed the risk of phantom limb pain and need for higher amputation. All questions were answered. Description of procedure The patient was taken to the operating room and transferred to the operating table in supine position. Pressure points were padded and SCDs Was placed to the right lower extremity. The left leg was prepped with Betadine and draped sterilely. Preoperative antibiotics were administered and a timeout was performed. A fishmouth incision was made above the knee after it was marked out with a marking pen. Scalpel was used to make the incision and Bovie electrocautery was used to dissect the subcutaneous tissues. Saphenous vein was tied off with 2-0 silk ties. The vascular bundle was identified and the SFA was suture ligated with 2-0 silk suture ligature but it was chronic total occluded on evaluation. The vein was tied off with 2-0 silk suture ligatures. The nerve posteriorly was tied off with a 0 silk suture. The bone was amputated with a bone saw on the remaining muscle and soft tissues were divided with the electrocautery. The wound was closed with a fascial layer with 0 Vicryl sutures and the skin was closed with skin clips. A sterile dressing was applied. Patient was awakened from anesthesia and transferred to recovery. Postoperative plan Continue pain management and discharge planning Anesthesia: spinal Surgeon / Physician: Angelo Quintanilla Estimated blood loss: other (100 mL) Specimens: other (left lower leg) Condition: stable Disposition: PACU Results - Labs CBC & BMP: 10/16/16 05:27 10/16/16 05:27 Discharge Plan - Discharge Medications No Action Tamsulosin [Flomax] 1 capsule PO BID Simvastatin 40.5 tablet PO 1800 Bisoprolol Fumarate/Hctz [Bisoprolol-Hctz 10-6.25 mg Tab] 2 tablet PO DAILY Losartan [Cozaar] 100 mg PO DAILY Cholecalciferol (Vitamin D3) [Vitamin D3] 1,000 unit PO DAILY Polyethylene Glycol Powder [Miralax] 17 gm PO DAILY #10 powder Ferrous Sulfate 324 mg PO DAILY Lactulose 10 ml PO DAILY PRN PRN Reason: Constipation hydroCHLOROthiazide [Hydrochlorothiazide] 0.5 mg PO DAILY - Follow Up or Referral Follow Up: Angelo Quintanilla MD [Physician] - - Forms/Instructions Instructions: Toe Amputation (DC)
[2016-10-16] MEDS ORDERED: LACTATED RINGERS 1,000 ML IV ONE (12:54)
[2016-10-16] MEDS ORDERED: MIDAZOLAM 2 MG/2 ML VIAL ONE (12:54)
[2016-10-16] MEDS ORDERED: KETAMINE 500 MG/10 ML VIAL ONE (12:54)
[2016-10-16] MEDS ORDERED: ONDANSETRON 4 MG/2 ML VIAL IV PRN (13:03)
[2016-10-16] MEDS ORDERED: HYDROmorphone 2 MG/1 ML VIAL IV PRN ×2 (13:03→14:21)
[2016-10-16] MEDS ORDERED: LACTATED RINGERS 1,000 ML IV SCH (13:30)
[2016-10-16] MEDS: SIMVASTATIN 40 MG TABLET PO SCH (17:55)
[2016-10-16] MEDS: GABAPENTIN 100 MG CAPSULE PO SCH ×2 (17:55→21:14)
[2016-10-16] MEDS: NYSTATIN POWDER 15 GM BOTTLE TOP SCH ×2 (17:58→21:20)
[2016-10-17 04:29] LABS: Basophils % 0.3 % (0.0-0.8); Eosinophils % 0.1 % (0.00-10.9); Hematocrit 26.1 VOL% (42.0-52.0); Hemoglobin 8.3 GM/DL (14.0-18.0); Immature Granulocytes % 0.5 %; Immature Granulocytes Absolute 0.06 #; Lymphocytes # 1.4 10*3/uL (1.4-4.0); Lymphocytes % 11.9 % (21.2-54.2); Mean Corpuscular HGB Conc 31.8 GM/DL (32-36); Mean Corpuscular Hemoglobin 29 PG (27-34); Mean Corpuscular Volume 89.7 FL (87-102); Mean Platelet Volume 8.4 FL (9.6-12.0); Monocytes % 8.3 % (1.7-12.7); Neutrophils # 9.1 10*3/uL (1.4-7.4); Neutrophils % 78.9 % (38.7-73.9); Platelet Count 292 T/CUMM (130-400); Red Blood Count 2.91 MC/CUMM (3.8-5.5); Red Cell Distribution Width 12.8 % (9.3-17.3); White Blood Count 11.6 T/CUMM (4-12)
[2016-10-17 04:58] LABS: Calcium 8.1 MG/DL (8.5-10.1); Osmolality,Calculated 279.4 MOS/KG (273-304); Potassium 3.9 MMOL/L (3.5-5.1)
[2016-10-17] MEDS: LACTATED RINGERS 1,000 ML IV SCH ×2 (07:28→21:30)
[2016-10-17] MEDS: TAMSULOSIN 0.4 MG CAPSULE PO SCH ×2 (08:48→21:36)
[2016-10-17] MEDS: FERROUS SULFATE 325 MG TABLET PO SCH ×2 (08:49→21:36)
[2016-10-17] MEDS: GABAPENTIN 100 MG CAPSULE PO SCH ×3 (08:49→21:36)
[2016-10-17] MEDS: NYSTATIN POWDER 15 GM BOTTLE TOP SCH ×2 (08:49→21:37)
[2016-10-17] MEDS: BISOPROLOL/HCTZ 10-6.25 MG TABLET PO SCH (08:49)
[2016-10-17] MEDS: CHLORHEXIDINE 4% SOLN 118 ML BOTTLE TOP SCH (08:54)
--- NOTE | 2016-10-17 12:51 | Event Note ---
General Surgery Progress Note Chief complaint This patient is a 66-year-old man admitted with multiple foot wounds and left knee contracture who was eventually treated with left above-knee amputation on Interval history The patient had some low-grade temperatures overnight but is afebrile this morning. His pain seems well-controlled with oral pain regimen. He is tolerating his diet. Physical exam Afebrile now, low-grade temperature overnight, normal vital signs otherwise Left leg dressing is clean Labs Reviewed Imaging None Assessment and plan Continue current pain medications No need for further antibiotics Monitor fever curve I will take the dressing down on Wednesday to examine the wound and hopefully he can go home then.
--- NOTE | 2016-10-17 13:38 | Hospitalist Progress Note ---
Assessment and Plan - Time spent with patient Time spent with patient: Greater than 30 minutes (1) Diabetes mellitus Status: Chronic Assessment and plan: Stable well controlled. Current Visit: No Qualifiers: Diabetes mellitus type: type 2 (2) CVA (cerebral vascular accident) Status: Chronic Assessment and plan: Supportive care. Current Visit: Yes (3) Anemia, chronic disease Status: Acute Assessment and plan: Transfusions prn. Ferrous sulfate. Current Visit: Yes (4) Decubitus skin ulcer Status: Chronic Assessment and plan: S/P surgery. May be discharged home with home health and home PT now that he has had surgery. Watch for another 24hours. Current Visit: Yes Qualifiers: Pressure ulcer location: dorsum of foot Hospitalist: Subjective Interval history: Family reports he has poor appetite. Above the knee amputation yesterday. Mild elevation of temperature overnight. Exam - Constitutional Vitals: Period Temp Pulse Resp BP Sys/Valenzuela Pulse Ox Last 24 Hr 98.8 F-100.1 F 60-93 16-19 104-162/55-80 92-99 General appearance: no acute distress - Head Head exam: Present: normocephalic, atraumatic - Eye Eye exam: Present: EOMI Pupils: Present: GENTRY - ENT ENT exam: Present: normal exam - Neck Neck exam: Present: normal inspection - Respiratory Respiratory exam: Present: clear to auscultation bilaterally. Absent: rhonchi, wheezes - Cardiovascular Cardiovascular exam: Present: regular rate and rhythm. Absent: gallop, rubs, systolic murmur - GI/Abdominal GI/Abdominal exam: Present: normal bowel sounds, soft. Absent: distended, firm , guarding, tenderness, rebound - Extremities Exam Extremities exam: Present: other (left above the knee amputation). Absent: calf tenderness, edema Results - Labs CBC & BMP: 10/17/16 04:15 10/17/16 04:15 Lab Results: I have reviewed the past 24 hour labs Specialty Discharge - Follow Up or Referrals Follow up with: Angelo Quintanilla MD [Physician] -
[2016-10-17] MEDS: SIMVASTATIN 40 MG TABLET PO SCH (18:49)
[2016-10-18 05:50] LABS: Basophils % 0.1 % (0.0-0.8); Eosinophils # 0.1 10*3/uL (0.0-0.87); Eosinophils % 0.6 % (0.00-10.9); Hematocrit 24.7 VOL% (42.0-52.0); Hemoglobin 7.9 GM/DL (14.0-18.0); Immature Granulocytes % 0.3 %; Immature Granulocytes Absolute 0.02 #; Lymphocytes # 1.7 10*3/uL (1.4-4.0); Lymphocytes % 21.5 % (21.2-54.2); Mean Corpuscular Hemoglobin 28 PG (27-34); Mean Corpuscular Volume 87.6 FL (87-102); Mean Platelet Volume 8.6 FL (9.6-12.0); Monocytes # 0.9 10*3/uL (0.11-0.8); Monocytes % 11.8 % (1.7-12.7); Neutrophils # 5.1 10*3/uL (1.4-7.4); Neutrophils % 65.7 % (38.7-73.9); Platelet Count 269 T/CUMM (130-400); Red Blood Count 2.82 MC/CUMM (3.8-5.5); White Blood Count 7.8 T/CUMM (4-12)
[2016-10-18 06:22] LABS: Calcium 8.2 MG/DL (8.5-10.1); Osmolality,Calculated 277.4 MOS/KG (273-304)
[2016-10-18] MEDS: NYSTATIN POWDER 15 GM BOTTLE TOP SCH ×2 (09:00→23:04)
[2016-10-18] MEDS: FERROUS SULFATE 325 MG TABLET PO SCH ×2 (09:56→23:03)
[2016-10-18] MEDS: TAMSULOSIN 0.4 MG CAPSULE PO SCH ×2 (09:56→23:19)
[2016-10-18] MEDS: GABAPENTIN 100 MG CAPSULE PO SCH ×3 (09:57→23:04)
[2016-10-18] MEDS: BISOPROLOL/HCTZ 10-6.25 MG TABLET PO SCH (09:58)
[2016-10-18] MEDS: LACTATED RINGERS 1,000 ML IV SCH (11:10)
[2016-10-18] MEDS: CHLORHEXIDINE 4% SOLN 118 ML BOTTLE TOP SCH (11:20)
--- NOTE | 2016-10-18 11:46 | Event Note ---
General Surgery Progress Note Chief complaint This patient is a 66-year-old man admitted with multiple foot wounds and left knee contracture who was eventually treated with left above-knee amputation on Interval history Afebrile the last 24 hours. Pain is well controlled. Physical exam Afebrile now, l normal vital signs Left leg incision is clean Labs Reviewed Imaging None Assessment and plan Continue current pain medications No need for further antibiotics Plan for discharge home tomorrow with social work
--- NOTE | 2016-10-18 12:30 | Hospitalist Progress Note ---
Assessment and Plan - Time spent with patient Time spent with patient: Greater than 30 minutes (1) Diabetes mellitus Status: Chronic Assessment and plan: Stable well controlled. Current Visit: No Qualifiers: Diabetes mellitus type: type 2 (2) CVA (cerebral vascular accident) Status: Chronic Assessment and plan: Supportive care. Current Visit: Yes (3) Anemia, chronic disease Status: Acute Assessment and plan: Transfusions prn. Ferrous sulfate. Current Visit: Yes Hospitalist: Subjective Interval history: No complaints. Patient was seen by surgery who recommended he remain until his home health and home PT as set up by social work. Exam - Constitutional Vitals: Period Temp Pulse Resp BP Sys/Valenzuela Pulse Ox Last 24 Hr 98.0 F-99.6 F 76-86 16-19 110-144/52-68 94-98 General appearance: no acute distress - Head Head exam: Present: normocephalic, atraumatic - Eye Eye exam: Present: EOMI Pupils: Present: GENTRY - ENT ENT exam: Present: normal exam - Neck Neck exam: Present: normal inspection - Respiratory Respiratory exam: Present: clear to auscultation bilaterally. Absent: rhonchi, wheezes - Cardiovascular Cardiovascular exam: Present: regular rate and rhythm. Absent: gallop, rubs, systolic murmur - GI/Abdominal GI/Abdominal exam: Present: normal bowel sounds, soft. Absent: distended, firm , guarding, tenderness, rebound - Extremities Exam Extremities exam: Present: normal inspection, other (left [id number] amputation). Absent: calf tenderness, edema Results - Labs CBC & BMP: 10/18/16 05:34 10/18/16 05:34 Lab Results: I have reviewed the past 24 hour labs Specialty Discharge - Follow Up or Referrals Follow up with: Angelo Quintanilla MD [Physician] -
[2016-10-18] MEDS: LACTULOSE 20 GM/30 ML UDCUP PO PRN (15:02)
[2016-10-18] MEDS: SIMVASTATIN 40 MG TABLET PO SCH (19:48)
[2016-10-19 06:54] LABS: Basophils % 0.2 % (0.0-0.8); Eosinophils # 0.1 10*3/uL (0.0-0.87); Eosinophils % 1.1 % (0.00-10.9); Hematocrit 26.8 VOL% (42.0-52.0); Hemoglobin 8.3 GM/DL (14.0-18.0); Immature Granulocytes % 0.2 %; Immature Granulocytes Absolute 0.02 #; Lymphocytes # 1.3 10*3/uL (1.4-4.0); Lymphocytes % 15.9 % (21.2-54.2); Mean Corpuscular Hemoglobin 28 PG (27-34); Mean Corpuscular Volume 91.2 FL (87-102); Mean Platelet Volume 9.3 FL (9.6-12.0); Monocytes # 0.7 10*3/uL (0.11-0.8); Monocytes % 8.5 % (1.7-12.7); Neutrophils # 6.2 10*3/uL (1.4-7.4); Neutrophils % 74.1 % (38.7-73.9); Platelet Count 269 T/CUMM (130-400); Red Blood Count 2.94 MC/CUMM (3.8-5.5); Red Cell Distribution Width 12.9 % (9.3-17.3); White Blood Count 8.4 T/CUMM (4-12)
[2016-10-19 07:30] LABS: Calcium 8.3 MG/DL (8.5-10.1); Potassium 3.8 MMOL/L (3.5-5.1)
[2016-10-19] MEDS: BISOPROLOL/HCTZ 10-6.25 MG TABLET PO SCH (09:19)
[2016-10-19] MEDS: FERROUS SULFATE 325 MG TABLET PO SCH (09:19)
[2016-10-19] MEDS: NYSTATIN POWDER 15 GM BOTTLE TOP SCH (09:19)
[2016-10-19] MEDS: GABAPENTIN 100 MG CAPSULE PO SCH ×2 (09:19→15:47)
[2016-10-19] MEDS: CHLORHEXIDINE 4% SOLN 118 ML BOTTLE TOP SCH (09:19)
[2016-10-19] MEDS: TAMSULOSIN 0.4 MG CAPSULE PO SCH (09:19)
--- NOTE | 2016-10-19 09:51 | Discharge Summary ---
Hospital Course - Hospital Course Hospital Course: 66-year-old bedridden -[place] male admitted with chronic ulcers of the left foot with nonviable tissue. Patient underwent a bedside debridement by Dr. Small on 09/30/2016 Due to family being unsure about amputation. Patient was found to have osteomyelitis in the left fifth metatarsal and necrotic wound with some fevers. he was taken to the operating room on 10/01/2016 for ray amputation of the left fifth toe and excisional debridement of his left great toe wound by Dr. Quintanilla. Patient had extended hospital stay due to insurance pending for LTAC and patient's family refusal of leg amputation. Patient did not have good blood flow to the left foot for proper healing and severe contractures to that left leg that would keep him from ever being ambulatory at a later time. Patient's did agree to the amputation when patient started running fevers and having foot pain again. So he went to the OR on 10/16/2016 for left [id number] amputation. Patient is now doing well, he is afebrile, his incision looks good and pain is controlled. He will be discharged home with home health to assist. Follow-up with Dr. Quintanilla in his office in 2 weeks. - Time spent with patient Time with patient DS: Less than 30 minutes Diagnosis - Discharge Diagnosis (1) Decubitus skin ulcer Status: Chronic Specialty Discharge - Follow Up or Referrals Follow up with: Angelo Quintanilla MD [Physician] - 2 Weeks Discharge Plan - Discharge Data Disposition: Home Health Service Condition at Discharge: Stable Discharge Diet: advance to your usual diet Activity: resume usual activities as tolerated Hygiene: may shower Weight Bearing at Discharge: non-weight bearing Contact your physician if you experience:: fever over 101, Redness or swelling, Bleeding, pain uncontrolled by pain medications Wound / Dressing Care Instructions: Okay to shower or bathe daily. Use mild soap and water to incision. Cover staple line with nonstick dressing, cast padding and Coban or Aashish wrap. - Discharge Medications New HYDROcodone/ACETAMIN 7.5-325 [[place] 7.5-325] 1 tablet PO Q4H PRN #30 tablet PRN Reason: Pain Moderate (4-7) Skin Healing Oint (Aquaphor) [Aquaphor] 1 applic TOP PRN PRN #0 applic PRN Reason: Dry Skin Gabapentin Cap/Tab [Neurontin Cap/Tab] 100 mg PO TID #90 capsule Nystatin Powder [Mycostatin Powder] 1 applic TOP BID #1 applic Continue Tamsulosin [Flomax] 1 capsule PO BID Simvastatin 40.5 tablet PO 1800 Bisoprolol Fumarate/Hctz [Bisoprolol-Hctz 10-6.25 mg Tab] 2 tablet PO DAILY Losartan [Cozaar] 100 mg PO DAILY Cholecalciferol (Vitamin D3) [Vitamin D3] 1,000 unit PO DAILY Polyethylene Glycol Powder [Miralax] 17 gm PO DAILY #10 powder Ferrous Sulfate 324 mg PO DAILY Lactulose 10 ml PO DAILY PRN PRN Reason: Constipation hydroCHLOROthiazide [Hydrochlorothiazide] 0.5 mg PO DAILY - Follow Up or Referral Follow Up: Angelo Quintanilla MD [Physician] - 2 Weeks - Forms/Instructions Instructions: Toe Amputation (DC) Exam - Constitutional Vitals: Period Temp Pulse Resp BP Sys/Valenzuela Pulse Ox Last 24 Hr 98.2 F-99.5 F 78-84 16-20 123-156/58-76 90-97 Discharge Results Labs on day of discharge: Labs from last 24 hours 10/19/16 10/19/16 05:24 05:24 WBC 8.4 RBC 2.94 L Hgb 8.3 L Hct 26.8 L MCV 91.2 MCH 28 MCHC 31.0 L RDW 12.9 Plt Count 269 MPV 9.3 L Neut % (Auto) 74.1 H Lymph % (Auto) 15.9 L [place] % (Auto) 8.5 Eos % (Auto) 1.1 Baso % (Auto) 0.2 Neut # (Auto) 6.2 Lymph # (Auto) 1.3 L [place] # (Auto) 0.7 Eos # (Auto) 0.1 Baso # (Auto) 0.0 Immature Gran % 0.2 Nucleated RBC % 0.0 Immature Gran # 0.02 Nucleated RBCs # 0.00 Sodium 143 Potassium 3.8 Chloride 104 Carbon Dioxide 27 Anion Gap 15.8 H BUN 5 L Creatinine 0.40 L GFR Calculation 157 BUN/Creatinine Ratio 12.00 Glucose 93 Calculated Osmolality 281.0 Calcium 8.3 L DS: Provider Date of admission: 09/29/16 15:00 Primary care physician: . No PCP Attending physician on admission: Darius Vallejo MD Consults: 09/29/16 15:19 Consult to Pharmacy [CONS] Routine Reason for Pharmacy Consult: Adjust Meds Renal Funct 09/30/16 13:11 Consult to Case Mgmt/Social Srvs [CONS] Routine Reason for Case Mgmt/Social Srvs: Home Health Consult Comment: supplies for dc, set up w wound [facility] for [facility] 10/01/16 09:22 Consult to Anesthesiology [CONS] Routine Consulting Provider: Reason for Anesthesiology: Pre-op Clearance 10/02/16 14:24 Consult to Dietitian [CONS] Routine Reason for Dietitian: Dietary Consult Other 10/08/16 08:15 Consult to Case Mgmt/Social Srvs [CONS] Routine Reason for Case Mgmt/Social Srvs: Discharge Planning LTAC Consult Comment: [facility]patient Pl[facility] 10/15/16 14:30 Consult to Anesthesiology [CONS] Routine Consulting Provider: Reason for Anesthesiology: Pre-op Clearance Discharging clinician: ANICETO Enrique Expected date of discharge: 10/19/16
--- NOTE | 2016-10-19 11:17 | Pathology Report from [facility] ---
ACCESSION # : [id number] PATIENT NAME : Mann Pate ORDERING DR : Angelo Qunitanilla MD CLINICAL HX: Left foot infection POST-OP DX: Same SPECIMEN INFO: Left lower leg GROSS DESCRIPTION: The specimen is received fresh labeled with the patient's name Mann Pate consists of an above the knee amputation measuring 65.0 cm. The fifth toe has been previously amputated with gangrenous ulcerations noted at the amputation site and medial and dorsal surfaces of the foot. Atherosclerotic changes are identified. Computer System Specialist sections are submitted in one cassette. DIAGNOSIS FOR MANN PATE: LEFT LEG ABOVE THE KNEE AMPUTATION: Atherosclerotic vascular disease with gangrene. SERVICE DATE: 10/16/2016 REPORT DATE: 10/19/2016 PATHOLOGIST: Vandana Zimmerman III, M.D. MTDD
--- NOTE | 2016-10-19 11:42 | Hospitalist Progress Note ---
Assessment and Plan - Time spent with patient Time spent with patient: Greater than 30 minutes (1) Diabetes mellitus Status: Chronic Assessment and plan: Stable well controlled. Current Visit: No Qualifiers: Diabetes mellitus type: type 2 (2) CVA (cerebral vascular accident) Status: Chronic Assessment and plan: Supportive care. Current Visit: Yes (3) Anemia, chronic disease Status: Acute Assessment and plan: Transfusions prn. Ferrous sulfate. Current Visit: Yes Hospitalist: Subjective Interval history: No complaints, no overnight events. Exam - Constitutional Vitals: Period Temp Pulse Resp BP Sys/Valenzuela Pulse Ox Last 24 Hr 98.2 F-99.5 F 78-84 16-20 123-156/58-76 90-97 General appearance: no acute distress - Head Head exam: Present: normocephalic, atraumatic - Eye Eye exam: Present: EOMI Pupils: Present: GENTRY - ENT ENT exam: Present: normal exam - Neck Neck exam: Present: normal inspection - Respiratory Respiratory exam: Present: clear to auscultation bilaterally. Absent: rhonchi, wheezes - Cardiovascular Cardiovascular exam: Present: regular rate and rhythm. Absent: gallop, rubs, systolic murmur - GI/Abdominal GI/Abdominal exam: Present: normal bowel sounds, soft. Absent: distended, firm , guarding, tenderness, rebound - Extremities Exam Extremities exam: Present: other (left AKA). Absent: calf tenderness, edema Results - Labs CBC & BMP: 10/19/16 05:24 10/19/16 05:24 Lab Results: I have reviewed the past 24 hour labs Specialty Discharge - Follow Up or Referrals Follow up with: Angelo Quintanilla MD [Physician] - 11/02/16 2:45 pm
[2016-10-19] MEDS: LACTATED RINGERS 1,000 ML IV SCH (15:48)
[2016-10-19 16:52] VITALS: BP 124/69
--- NOTE | 2016-10-22 14:31 | Physician Query Form ---
CLICK EDIT DOCUMENT TO SELECT QUERY ANSWER --> OK --> SIGN PROVIDERS: Make your selection(s) from the choices in EACH section by typing an "x" and enter comments in the comment section. Please use your independent medical judgment in providing your response. This request does not imply that any particular answer is desired or expected. CLINICAL INDICATORS: (Providers should not edit this section) "Patient was found to have osteomyelitis in the left fifth metatarsal and necrotic wound with some fevers". In your clinical opinion can you please clarify the acuity of the osteomyelitis? Clarify which of the following accurately represents the acuity of the above diagnosis. ( ) Acute (x ) Acute on chronic ( ) Chronic stable condition ( ) Remission ( ) Other, please specify: ( ) Clinically unable to determine COMMENTS: Use of terms such as suspected, likely, or probable (associated with a specific diagnosis that is being evaluated, monitored, or treated as if it exists) are acceptable and can be restated in the discharge summary if not ruled out. [facility]
== END 2016-10-19 17:45 | disposition home health service (06) | DRG 616 ==
LOC: EDUNIT# → EDBD → N.ED 11:49 → N.EDINP 14:59 → SUATTDRO 15:00 → N.3E 16:06
PROVIDERS: ADMIT Internal Medicine Cardiovascular Disease; ATTEND Internal Medicine

== ENCOUNTER 2017-03-01 17:27 | Inpatient (IN) ==
[2017-03-01] MEDS ORDERED: CLINDAMYCIN INJ 600 MG in PREMIX 1 EACH IV STA (19:18)
--- NOTE | 2017-03-01 19:22 | Emergency Department Note ---
Arrival - Arrival Chief Complaint: Extremity Problem Stated Complaint: WOUND PRESSURE AREA/RIGHT SIDE FOOT/ ED Nursing Triage Note: Family brought pt for eval of ulcer on his right foot since November but worse the last wk. Mode of Arrival: Wheelchair Source: Family Time Seen by Provider: 03/01/17 19:15 - History of Present Illness HPI Narrative: The family complains of worsening of a right foot ulcer that the patient has had since November. She states it has become much worse in the past 2 days and now has some redness around it extending up onto the dorsum of the foot. The patient acts like it is hurting him more. [facility] health instructed them to bring the patient to the ER. She denies any fever, cough, nausea, vomiting or any other acute symptoms. The patient had a CVA about 1 year ago. He developed contractures and an ulcer in the left leg and had a left AKA. He is bedbound and has had approximately 75 pound weight loss over the past year. Allergies/Adverse Reactions: Allergies Allergy/AdvReac Type Severity Reaction Status Date / Time No Known Allergies Allergy Verified 12/04/16 17:07 Home Medications: Home Medications Medication Instructions Recorded Confirmed Type Simvastatin 20 tablet PO BEDTIME 08/14/15 03/01/17 History Cholecalciferol (Vitamin D3) 1,000 unit PO DAILY 02/11/16 03/01/17 History [Vitamin D3] Polyethylene Glycol Powder 17 gm PO DAILY #10 powder 04/05/16 03/01/17 Rx [Miralax] Ferrous Sulfate 324 mg PO DAILY 09/29/16 03/01/17 History hydroCHLOROthiazide 6.25 mg PO DAILY 09/29/16 03/01/17 History [Hydrochlorothiazide] Gabapentin Cap/Tab [Neurontin 100 mg PO TID #90 capsule 10/19/16 03/01/17 Rx Cap/Tab] HYDROcodone/ACETAMIN 7.5-325 1 tablet PO Q4H PRN #30 tablet 10/19/16 03/01/17 Rx [[place] 7.5-325] Nystatin Powder [Mycostatin Powder] 1 applic TOP BID #1 applic 10/19/16 Rx Skin Healing Oint (Aquaphor) 1 applic TOP PRN PRN #0 applic 10/19/16 03/01/17 Rx [Aquaphor] Bisoprolol Fumarate 5 mg PO DAILY 03/01/17 03/01/17 History Tamsulosin [Flomax] 0.4 mg PO BEDTIME 03/01/17 03/01/17 History Review of System - Review of System ROS unobtainable: other (Dysarthria) - Review of System Constitutional: Absent: fever, weakness Head/Ears/Nose/Throat: Absent: nasal drainage, sore throat Respiratory: Absent: cough, respiratory distress Cardiovascular: Absent: chest pain Gastrointestinal: Absent: abdominal pain Musculoskeletal: Present: leg pain Medical,Surgical,& Family Hx - Medical History Cardio: History of: Hypertension No history of: Aneurysm, Cardiac Dysrhythmia, Cerebrovascular Disease, Congenital Heart Disease, CHF, CAD, [place], Pacemaker, PVD, Valvular Heart Disease, Cardiovascular Problems Psychological: No history of: Anxiety Disorders, ADHD, Behavior Problems, Bipolar Disorder, Depression, Previous Suicide Attempt, Psychiatric/Substance Abuse Tx, Schizophrenia, Violent Behavior, Psychiatric Problems Neurology: History of: Cerebrovascular Accident, Dementia No history of: Brain Aneurysm, Cerebral Hemorrhage, Cerebral Palsy, Migraine , Multiple Sclerosis, Parkinson's Disease, Peripheral Neuropathy, Seizures, TIA , Vertigo, Neurologocal Cancer HEENT: No history of: Ear Problem, Eye Problem, Dental Problems, Glaucoma, Oral Cancer, HEENT Problems Endocrine: History of: Diabetes Mellitus (NIDDM), Dyslipidemia No history of: Adrenal Disease, Diabetes Mellitus (IDDM), Thyroid Disorder, Endocrine Cancer, Endocrine Problems Rheumatology: No history of;: Fibromyalgia, Gout, Myasthenia Gravis, Psoriasis, Rheumatoid Arthritis, Sjogrens, Systemic Lupus Erythematosus, Rheumatological Problems Respiratory: No history of: Asthma, Bronchitis, COPD, Intubation, Obstructive Sleep Apnea , Pulmonary Embolism, Pulmonary Hypertension, Pneumonia, Lung Cancer, Respiratory Problems Renal: No history of: Renal (Kidney) Cancer, Dialysis, Renal Failure, Renal Problems Genitourinary: No history of: Bladder Problem, Kidney Stones, Prostate Problems, Recurring Urinary Tract Infections, Genitourinary Cancer, Problems Gastrointestinal: No history of: Bowel Obstruction, Clostridium Difficile, Crohn's Disease, Diverticulitis/ Diverticulosis, Esophageal Varices, GERD, Gastrointestinal Bleed , Hemorrhoids, Hematochezia, Hepatitis, Liver Problems, Pancreatitis, Polyps, Ulcerative Colitis, Gastrointestinal Cancer, GI Problems Musculoskeletal: History of: Amputation (left AKA), Back/Neck Problems, Degenerative Disk Disease, Herniated Disk No history of: Osteoporosis, Musculoskeletal Cancer, Musculoskeletal Problems Hematology: No history of: Anemia, Blood Transfusion Reaction, Bleeding Problems, Clotting Problems, Sickle Cell Disease, Hematologic Cancer, Blood Disorders Reproductive: No histroy: Penile Disorder, Sexually Transmitted Disease, Reproductive Cancer, Reproductive Problems Other: No history of: Anesthesia Reactions, Anaphylaxis, Cancer, Eczema, HIV, Malignant Hyperthermia, MRSA, Vancomycin-Resistant Enterococci, Skin Problems, Miscellaneous Medical Problems - Surgical History Cardiac Surgeries: Patient Denies: Femoral-Popliteal Bypass Graft, Cardiac Catheterization, Cardiac Surgery, Carotid Endarterectomy, Internal Defibrillator, Vascular Access Devices Thoracic Surgeries: Patient denies;: Kidney (Renal Surgery), Lithotripsy, Nephrectomy, Organ Transplant, Lobectomy Neurologic Surgeries: Patient denies: Brain Aneurysm, Cerebral Hemorrhage, Neurologic Surgery HEENT Surgeries: Patient denies: Carotid Endarterectomy, Eye Surgery, Thyroid Surgery, Tonsilectomy & Adenoidectomy Abdominal Surgeries: Patient denies: Abdominal Surgery, Appendectomy, Cholecystectomy, Colonoscopy , Gastric Bypass Surgery, EGD, Hernia Repair, Splenectomy Reproductive Surgeries: Patient denies;: Breast Surgery, Cystoscopy, Genitourinary Surgery, Prostate Surgery, Vasectomy Orthopedic Surgeries: Surgical HX of;: Orthopedic Surgery (Right Knee replacement), Spinal Surgery, Total Knee Replacement (Right Knee) Patient denies;: Implanted Devices, Total Hip Replacement - Family History Family History: Reports;: Family Cancer, Family Diabetes, Family Hypertension, Family Stroke Denies;: Family Anesthesia Reaction, Family Heart Disease, Family Psychiatric Problems - Social History Smoking Status: Former smoker Exam Physical Examination: GENERAL: Alert. No acute distress. Cachectic, chronically ill-appearing. HEENT: Normocephalic and atraumatic. PERRLA. EOMI. There is no nasal drainage. No pharyngeal erythema or exudate. NECK: Normal inspection. Supple. No lymphadenopathy or meningismus. LUNGS: No respiratory distress. Clear to auscultation bilaterally, no wheezes, rales or rhonchi. HEART: Regular rate and rhythm. ABDOMEN: Soft, nontender and nondistended with normoactive bowel sounds. SKIN: Color normal. Warm and dry. EXTREMITIES: There is a half dollar size necrotic ulceration over the right fifth MTP joint with mild bleeding. No purulence. There is erythema surrounding this and streaking up onto the dorsal lateral foot. Mild tenderness in this erythematous area. Distal sensation and capillary refill are intact. The right leg is contracted. NEUROLOGICAL/PSYCHIATRIC: Alert and oriented -3 with normal mood and affect. Cranial nerves normal. There is left sided upper extremity weakness. Patient has a left AKA. Vital Signs: Vital Signs Temperature 98.3 F 03/01/17 19:03 Pulse Rate 70 03/01/17 21:42 Respiratory Rate 18 03/01/17 21:42 Blood Pressure 112/68 03/01/17 21:42 O2 Sat by Pulse Oximetry 100 03/01/17 21:42 Course Course Narrative: Note: The multiple negatives in the past medical history were not marked by me. They are the result of the triage process, past medical records or other unknown causes. Due to time constraints, these were not all reviewed with the patient and the backslashes were not removed from the chart. They should be ignored. - Reevaluation(s) Reevaluation #1: Patient has remained stable in the ER. The x-ray showed no evidence of active osteomyelitis. He does appear to have cellulitis and lymphangitis around the ulcer however. I think he will need IV antibiotics and debridement at least. I discussed the patient with Dr. Arroyo and will admit to him. Time: 22:05 Results - Labs CBC & BMP: 03/01/17 19:54 03/01/17 19:54 Lab Results: I have reviewed the patients labs Labs: Laboratory Tests 03/01/17 19:54 INR 1.0 - Impressions X-ray of the foot shows chronic changes but no evidence of active osteomyelitis. Disposition Clinical Impression: Diabetic foot ulcer Case discussed with: patient, patient's family Disposition: Disch To Home/Self Care Condition: Guarded Time of Disposition: 22:07
--- NOTE | 2017-03-01 20:13 | XRay Report ---
Right foot, 3 views. Indication: Ulcer, infection. There is small vessel atherosclerotic disease usually indicative of diabetes. Scattered degenerative changes are present, including the first metatarsophalangeal joint and the calcaneus and dorsal hindfoot. No evidence of fracture or dislocation. No radiodense foreign body. No findings to suggest active osteomyelitis. Impression: Chronic changes. PROCEDURE INTERPRETED AT [facility] DEPARTMENT OF RADIOLOGY Final Report Signed by: Dr. Hedy Brown
[2017-03-01 20:18] LABS: Basophils % 0.2 % (0.0-0.8); Eosinophils % 0.3 % (0.00-10.9); Hematocrit 32.7 VOL% (42.0-52.0); Hemoglobin 10.9 GM/DL (14.0-18.0); Immature Granulocytes % 0.2 %; Immature Granulocytes Absolute 0.01 #; Lymphocytes # 1.4 10*3/uL (1.4-4.0); Lymphocytes % 23.3 % (21.2-54.2); Mean Corpuscular HGB Conc 33.3 GM/DL (32-36); Mean Corpuscular Hemoglobin 30 PG (27-34); Mean Corpuscular Volume 89.3 FL (87-102); Mean Platelet Volume 9.3 FL (9.6-12.0); Monocytes # 0.5 10*3/uL (0.11-0.8); Monocytes % 7.4 % (1.7-12.7); Neutrophils # 4.2 10*3/uL (1.4-7.4); Neutrophils % 68.6 % (38.7-73.9); Platelet Count 202 T/CUMM (130-400); Red Blood Count 3.66 MC/CUMM (3.8-5.5); Red Cell Distribution Width 12.1 % (9.3-17.3); White Blood Count 6.1 T/CUMM (4-12)
[2017-03-01] MEDS ORDERED: CLINDAMYCIN INJ 50 ML IV ONE (20:20)
[2017-03-01 20:28] LABS: PT Patient Result 10.9 SECS; Partial Thromboplastin Time < 21.0 SECS (0-40)
[2017-03-01 20:46] LABS: Calcium 9.5 MG/DL (8.5-10.1); Osmolality,Calculated 279.7 MOS/KG (273-304); Potassium 4.2 MMOL/L (3.5-5.1)
[2017-03-01] MEDS ORDERED: HYDROmorphone 2 MG/1 ML VIAL IV PRN (23:03)
[2017-03-01] MEDS ORDERED: ACETAMINOPHEN 325 MG TABLET PO PRN (23:03)
[2017-03-01] MEDS ORDERED: MORPHINE 2 MG/1 ML SYRINGE IV PRN (23:03)
[2017-03-01] MEDS ORDERED: ONDANSETRON 4 MG/2 ML VIAL IV PRN (23:03)
[2017-03-02] MEDS: SODIUM CHLORIDE 0.45% 1,000 ML IV SCH ×3 (00:27→15:35)
[2017-03-02] MEDS: PIPERACILLIN/TAZOBACTAM 3,375 MG in SODIUM CHLORIDE 0.9% 100 ML IV SCH ×4 (00:28→22:31)
[2017-03-02] MEDS ORDERED: CHLORHEXIDINE 4% SOLN 118 ML BOTTLE TOP ONE (08:12)
--- NOTE | 2017-03-02 08:20 | General Surg History&Physical ---
Assessment and Plan - Time spent with patient Time spent with patient: Greater than 30 minutes (1) Diabetic infection of right foot Status: Acute Assessment and plan: 03/02/2017. Infected right diabetic foot wound. Will initiate local care while we plan for vascular workup. Agree with present antibiotics and will try to moisturize this area before we plan any kind of surgical intervention, we did need to assess his vascular status so we will get some noninvasive lower arterial studies on this area. Current Visit: Yes (2) Failure to thrive Status: Acute Assessment and plan: 03/02/2017. Post CVA with failure to thrive and approximately 70 pound weight loss in the past 8 months. We will plan to get a nutritional assessment through dietary, and a repeat swallowing study. He obviously is not getting good p.o. intake, and he will need good nutritional support for healing. May need to approach the possibility of PEG tube with his . Current Visit: No History of Present Illness Chief complaint: Worsening right lower extremity wound. History of present illness: Mr. Hallman is a 66 year old male Home Medications Medication Instructions Recorded Confirmed Type Simvastatin 20 tablet PO BEDTIME 08/14/15 03/01/17 History Cholecalciferol (Vitamin D3) 1,000 unit PO DAILY 02/11/16 03/01/17 History [Vitamin D3] Polyethylene Glycol Powder 17 gm PO DAILY #10 powder 04/05/16 03/01/17 Rx [Miralax] Ferrous Sulfate 324 mg PO DAILY 09/29/16 03/01/17 History hydroCHLOROthiazide 6.25 mg PO DAILY 09/29/16 03/01/17 History [Hydrochlorothiazide] Gabapentin Cap/Tab [Neurontin 100 mg PO TID #90 capsule 10/19/16 03/01/17 Rx Cap/Tab] HYDROcodone/ACETAMIN 7.5-325 1 tablet PO Q4H PRN #30 tablet 10/19/16 03/01/17 Rx [[place] 7.5-325] Nystatin Powder [Mycostatin Powder] 1 applic TOP BID #1 applic 10/19/16 Rx Skin Healing Oint (Aquaphor) 1 applic TOP PRN PRN #0 applic 10/19/16 03/01/17 Rx [Aquaphor] Bisoprolol Fumarate 5 mg PO DAILY 03/01/17 03/01/17 History Tamsulosin [Flomax] 0.4 mg PO BEDTIME 03/01/17 03/01/17 History Allergies Allergy/AdvReac Type Severity Reaction Status Date / Time No Known Allergies Allergy Verified 12/04/16 17:07 Medical,Surgical,& Family Hx - Medical History Cardio: History of: Hypertension No history of: Aneurysm, Cardiac Dysrhythmia, Cerebrovascular Disease, Congenital Heart Disease, CHF, CAD, [place], Pacemaker, PVD, Valvular Heart Disease, Cardiovascular Problems Psychological: No history of: Anxiety Disorders, ADHD, Behavior Problems, Bipolar Disorder, Depression, Previous Suicide Attempt, Psychiatric/Substance Abuse Tx, Schizophrenia, Violent Behavior, Psychiatric Problems Neurology: History of: Cerebrovascular Accident, Dementia No history of: Brain Aneurysm, Cerebral Hemorrhage, Cerebral Palsy, Migraine , Multiple Sclerosis, Parkinson's Disease, Peripheral Neuropathy, Seizures, TIA , Vertigo, Neurologocal Cancer HEENT: No history of: Ear Problem, Eye Problem, Dental Problems, Glaucoma, Oral Cancer, HEENT Problems Endocrine: History of: Diabetes Mellitus (NIDDM), Dyslipidemia No history of: Adrenal Disease, Diabetes Mellitus (IDDM), Thyroid Disorder, Endocrine Cancer, Endocrine Problems Rheumatology: No history of;: Fibromyalgia, Gout, Myasthenia Gravis, Psoriasis, Rheumatoid Arthritis, Sjogrens, Systemic Lupus Erythematosus, Rheumatological Problems Respiratory: No history of: Asthma, Bronchitis, COPD, Intubation, Obstructive Sleep Apnea , Pulmonary Embolism, Pulmonary Hypertension, Pneumonia, Lung Cancer, Respiratory Problems Renal: No history of: Renal (Kidney) Cancer, Dialysis, Renal Failure, Renal Problems Genitourinary: No history of: Bladder Problem, Kidney Stones, Prostate Problems, Recurring Urinary Tract Infections, Genitourinary Cancer, Problems Gastrointestinal: No history of: Bowel Obstruction, Clostridium Difficile, Crohn's Disease, Diverticulitis/ Diverticulosis, Esophageal Varices, GERD, Gastrointestinal Bleed , Hemorrhoids, Hematochezia, Hepatitis, Liver Problems, Pancreatitis, Polyps, Ulcerative Colitis, Gastrointestinal Cancer, GI Problems Musculoskeletal: History of: Amputation (left AKA), Back/Neck Problems, Degenerative Disk Disease, Herniated Disk No history of: Osteoporosis, Musculoskeletal Cancer, Musculoskeletal Problems Hematology: No history of: Anemia, Blood Transfusion Reaction, Bleeding Problems, Clotting Problems, Sickle Cell Disease, Hematologic Cancer, Blood Disorders Reproductive: No histroy: Penile Disorder, Sexually Transmitted Disease, Reproductive Cancer, Reproductive Problems Other: No history of: Anesthesia Reactions, Anaphylaxis, Cancer, Eczema, HIV, Malignant Hyperthermia, MRSA, Vancomycin-Resistant Enterococci, Skin Problems, Miscellaneous Medical Problems - Surgical History Cardiac Surgeries: Patient Denies: Femoral-Popliteal Bypass Graft, Cardiac Catheterization, Cardiac Surgery, Carotid Endarterectomy, Internal Defibrillator, Vascular Access Devices Thoracic Surgeries: Patient denies;: Kidney (Renal Surgery), Lithotripsy, Nephrectomy, Organ Transplant, Lobectomy Neurologic Surgeries: Patient denies: Brain Aneurysm, Cerebral Hemorrhage, Neurologic Surgery HEENT Surgeries: Patient denies: Carotid Endarterectomy, Eye Surgery, Thyroid Surgery, Tonsilectomy & Adenoidectomy Abdominal Surgeries: Patient denies: Abdominal Surgery, Appendectomy, Cholecystectomy, Colonoscopy , Gastric Bypass Surgery, EGD, Hernia Repair, Splenectomy Reproductive Surgeries: Patient denies;: Breast Surgery, Cystoscopy, Genitourinary Surgery, Prostate Surgery, Vasectomy Orthopedic Surgeries: Surgical HX of;: Orthopedic Surgery (Right Knee replacement), Spinal Surgery, Total Knee Replacement (Right Knee) Patient denies;: Implanted Devices, Total Hip Replacement - Family History Family History: Reports;: Family Cancer, Family Diabetes, Family Hypertension, Family Stroke Denies;: Family Anesthesia Reaction, Family Heart Disease, Family Psychiatric Problems - Social History Smoking Status: Former smoker Frequency of Alcohol Use: None Type of Drug Use: None Exam - Constitutional Vitals: Period Temp Pulse Resp BP Sys/Valenzuela Pulse Ox Last 24 Hr 97.7 F-98.6 F 70-85 16-20 104-120/47-89 95-100 General appearance: other (Patient is cachectic black male who is contracted and without any verbal response. He will program but does not follow commands.) - Head Head exam: Present: normocephalic - Eye Eye exam: Present: nystagmus. Absent: periorbital swelling Pupils: Present: normal accommodation - ENT Mouth exam: Present: dry mucosa. Absent: oral lesion - Neck Neck exam: Present: trachea midline. Absent: lymphadenopathy - Respiratory Respiratory exam: Present: rhonchi. Absent: accessory muscle use, stridor, wheezes - Cardiovascular Cardiovascular exam: Present: RRR - GI/Abdominal GI/Abdominal exam: Present: hypoactive bowel sounds. Absent: guarding - Extremities Exam Extremities exam: Present: other (Previous left AKA. Right lower extremity is contracted and thin with muscle wasting. There obvious varicosities present, but no gross ischemic change. The foot is cool, with the ischemic appearing eschar at the lateral fifth metatarsal. There is some streaking and erythematous change laterally across the dorsum of the foot about to the level of the midfoot. It is not unusually tender. Fifth toe is questionable vascularity.) - Neurological Exam Neurological exam: Absent: oriented X3 - Constitutional Constitutional: Present: weight loss, other (Cough, decreased appetite.) Results - Labs CBC & BMP: 03/01/17 19:54 03/01/17 19:54 Lab Results: I have reviewed the past 24 hour labs - Diagnostic Findings Procedure: X-ray: image reviewed by me, report reviewed by me (No gross signs of osteomyelitis or deep space abscess.)
--- NOTE | 2017-03-02 09:57 | Hospitalist Consult Note ---
Assessment and Plan (1) Diabetes mellitus Status: Chronic Assessment and plan: Severe weight loss following his most recent stroke. The patient is required no diabetic treatment at home due to a diminished oral intake and weight loss. He should be followed for any potential stress associated elevations in his blood sugar with serial capillary blood glucose levels holding sliding scale coverage until significant elevation of blood glucose Current Visit: No Qualifiers: Diabetes mellitus type: type 2 (2) CVA (cerebral vascular accident) Status: Chronic Assessment and plan: Multifocal cerebrovascular accidents without embolic site identified. Severe residual ischemic neurologic deficit with possible ischemic dementia versus profound depression. 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 Current Visit: Yes History of Present Illness - Data of Consult Patient: known to practice within the last 3 years - Consult Narrative History of present illness: Mr. Hallman is a 66 year old male chronic hypertensive sustaining cerebrovascular accidents in 1999, 2003 and in January 2016. Imaging demonstrates multifocal cerebral lesions of various ages. He had an extensive evaluation which demonstrated no significant carotid disease, normal echocardiogram no evidence of site for potential embolic events. He was placed on Coumadin but this had to be discontinued due to bleeding complications. His last stroke has resulted in severe residual ischemic neurologic deficits with contractures and pressure injury. Patient has had progressive weight loss taking oral intake. His diabetes has resolved and not required active treatment at home with the weight loss. He is admitted with lesion on his right foot having sustained a left lower extremity amputation in September this year. CC: Chuckie Arroyo MD - Home Medications and Allergies Home Medications: Home Medications Medication Instructions Recorded Confirmed Type Simvastatin 20 tablet PO BEDTIME 08/14/15 03/01/17 History Cholecalciferol (Vitamin D3) 1,000 unit PO DAILY 02/11/16 03/01/17 History [Vitamin D3] Polyethylene Glycol Powder 17 gm PO DAILY #10 powder 04/05/16 03/01/17 Rx [Miralax] Ferrous Sulfate 324 mg PO DAILY 09/29/16 03/01/17 History hydroCHLOROthiazide 6.25 mg PO DAILY 09/29/16 03/01/17 History [Hydrochlorothiazide] Gabapentin Cap/Tab [Neurontin 100 mg PO TID #90 capsule 10/19/16 03/01/17 Rx Cap/Tab] HYDROcodone/ACETAMIN 7.5-325 1 tablet PO Q4H PRN #30 tablet 10/19/16 03/01/17 Rx [[place] 7.5-325] Nystatin Powder [Mycostatin Powder] 1 applic TOP BID #1 applic 10/19/16 Rx Skin Healing Oint (Aquaphor) 1 applic TOP PRN PRN #0 applic 10/19/16 03/01/17 Rx [Aquaphor] Bisoprolol Fumarate 5 mg PO DAILY 03/01/17 03/01/17 History Tamsulosin [Flomax] 0.4 mg PO BEDTIME 03/01/17 03/01/17 History Allergies/Adverse Reactions: Allergies Allergy/AdvReac Type Severity Reaction Status Date / Time No Known Allergies Allergy Verified 12/04/16 17:07 Medical,Surgical,& Family Hx - Medical History Cardio: History of: Hypertension No history of: Aneurysm, Cardiac Dysrhythmia, Cerebrovascular Disease, Congenital Heart Disease, CHF, CAD, NE, Pacemaker, PVD, Valvular Heart Disease, Cardiovascular Problems Psychological: No history of: Anxiety Disorders, ADHD, Behavior Problems, Bipolar Disorder, Depression, Previous Suicide Attempt, Psychiatric/Substance Abuse Tx, Schizophrenia, Violent Behavior, Psychiatric Problems Neurology: History of: Cerebrovascular Accident (Multifocal over time associated with severe ischemic neurologic deficit), Dementia No history of: Brain Aneurysm, Cerebral Hemorrhage, Cerebral Palsy, Migraine , Multiple Sclerosis, Parkinson's Disease, Peripheral Neuropathy, Seizures, TIA , Vertigo, Neurologocal Cancer HEENT: No history of: Ear Problem, Eye Problem, Dental Problems, Glaucoma, Oral Cancer, HEENT Problems Endocrine: History of: Diabetes Mellitus (NIDDM) (Remission associated with prominent weight loss per), Dyslipidemia No history of: Adrenal Disease, Diabetes Mellitus (IDDM), Thyroid Disorder, Endocrine Cancer, Endocrine Problems Rheumatology: No history of;: Fibromyalgia, Gout, Myasthenia Gravis, Psoriasis, Rheumatoid Arthritis, Sjogrens, Systemic Lupus Erythematosus, Rheumatological Problems Respiratory: No history of: Asthma, Bronchitis, COPD, Intubation, Obstructive Sleep Apnea , Pulmonary Embolism, Pulmonary Hypertension, Pneumonia, Lung Cancer, Respiratory Problems Renal: No history of: Renal (Kidney) Cancer, Dialysis, Renal Failure, Renal Problems Genitourinary: No history of: Bladder Problem, Kidney Stones, Prostate Problems, Recurring Urinary Tract Infections, Genitourinary Cancer, Problems Gastrointestinal: No history of: Bowel Obstruction, Clostridium Difficile, Crohn's Disease, Diverticulitis/ Diverticulosis, Esophageal Varices, GERD, Gastrointestinal Bleed , Hemorrhoids, Hematochezia, Hepatitis, Liver Problems, Pancreatitis, Polyps, Ulcerative Colitis, Gastrointestinal Cancer, GI Problems Musculoskeletal: History of: Amputation (left AKA 2017), Back/Neck Problems, Degenerative Disk Disease, Herniated Disk No history of: Osteoporosis, Musculoskeletal Cancer, Musculoskeletal Problems Hematology: No history of: Anemia, Blood Transfusion Reaction, Bleeding Problems, Clotting Problems, Sickle Cell Disease, Hematologic Cancer, Blood Disorders Reproductive: No histroy: Penile Disorder, Sexually Transmitted Disease, Reproductive Cancer, Reproductive Problems Other: No history of: Anesthesia Reactions, Anaphylaxis, Cancer, Eczema, HIV, Malignant Hyperthermia, MRSA, Vancomycin-Resistant Enterococci, Skin Problems, Miscellaneous Medical Problems - Surgical History Cardiac Surgeries: Patient Denies: Femoral-Popliteal Bypass Graft, Cardiac Catheterization, Cardiac Surgery, Carotid Endarterectomy, Internal Defibrillator, Vascular Access Devices Thoracic Surgeries: Patient denies;: Kidney (Renal Surgery), Lithotripsy, Nephrectomy, Organ Transplant, Lobectomy Neurologic Surgeries: Patient denies: Brain Aneurysm, Cerebral Hemorrhage, Neurologic Surgery HEENT Surgeries: Patient denies: Carotid Endarterectomy, Eye Surgery, Thyroid Surgery, Tonsilectomy & Adenoidectomy Abdominal Surgeries: Patient denies: Abdominal Surgery, Appendectomy, Cholecystectomy, Colonoscopy , Gastric Bypass Surgery, EGD, Hernia Repair, Splenectomy Reproductive Surgeries: Patient denies;: Breast Surgery, Cystoscopy, Genitourinary Surgery, Prostate Surgery, Vasectomy Orthopedic Surgeries: Surgical HX of;: Orthopedic Surgery (Right Knee replacement), Spinal Surgery (Lumbar discectomy) Patient denies;: Implanted Devices, Total Hip Replacement - Family History Family History: Reports;: Family Cancer, Family Diabetes, Family Hypertension, Family Stroke Denies;: Family Anesthesia Reaction, Family Heart Disease, Family Psychiatric Problems - Social History Smoking Status: Former smoker Frequency of Alcohol Use: None Type of Drug Use: None ROS unobtainable: due to mental status Exam - Constitutional Vitals: Period Temp Pulse Resp BP Sys/Valenzuela Pulse Ox Last 24 Hr 97.7 F-98.6 F 70-85 16-20 104-120/47-89 95-100 General appearance: under weight - Head Head exam: Present: atraumatic - Respiratory Respiratory exam: Present: clear to auscultation bilaterally. Absent: rales, rhonchi, wheezes - Cardiovascular Cardiovascular exam: Present: regular rate and rhythm - GI/Abdominal GI/Abdominal exam: Present: normal bowel sounds. Absent: mass, tenderness - Extremities Exam Extremities exam: Present: other (Left lower extremity amputation,). Absent: edema - Neurological Exam Neurological exam: Present: alert Results - Labs CBC & BMP: 03/01/17 19:54 03/01/17 19:54
[2017-03-02] MEDS: PANTOPRAZOLE 40 MG TABLET PO SCH (10:03)
[2017-03-02] MEDS: COLLAGENASE OINT 30 GM TUBE TOP SCH (10:05)
[2017-03-02] MEDS: SKIN HEALING OINT (AQUAPHOR) 50 GM TUBE TOP PRN (10:15)
[2017-03-02] MEDS: DESITIN 4OZ/NYSTATIN 15 GRAM MIXTURE PASTE TOP SCH ×2 (11:30→22:30)
--- NOTE | 2017-03-02 15:29 | XRay Report ---
Exam: XR chest 1V portable Date: 03/02/2017 8:11 AM Indication: Chest pain and congestion Comparison: 12/04/2016 Findings: ASVD is present. The heart, lungs, mediastinum and bony thorax reveal no acute findings. Arthritic change present over the shoulders bilaterally. Impression: 1. No acute cardiopulmonary pathology. 2. Arthritic changes of the shoulders bilaterally PROCEDURE INTERPRETED AT [facility] DEPARTMENT OF RADIOLOGY Final Report Signed by: Dr. Shaun Jones
[2017-03-03] MEDS: SODIUM CHLORIDE 0.45% 1,000 ML IV SCH ×2 (00:30→13:40)
[2017-03-03] MEDS: PIPERACILLIN/TAZOBACTAM 3,375 MG in SODIUM CHLORIDE 0.9% 100 ML IV SCH ×3 (06:51→23:15)
--- NOTE | 2017-03-03 08:22 | Hospitalist Progress Note ---
Assessment and Plan (1) Diabetes mellitus Status: Chronic Assessment and plan: Severe weight loss following his most recent stroke. The patient has required no diabetic treatment at home due to a diminished oral intake and weight loss. He should be followed for any potential stress associated elevations in his blood sugar with serial capillary blood glucose levels holding sliding scale coverage until significant elevation of blood glucose Current Visit: No Qualifiers: Diabetes mellitus type: type 2 (2) CVA (cerebral vascular accident) Status: Chronic Assessment and plan: Multifocal cerebrovascular accidents without embolic site identified. Severe residual ischemic neurologic deficit with possible ischemic dementia versus profound depression. 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 Current Visit: Yes Hospitalist: Subjective Interval history: 66-year-old male with chronic hypertension with multiple cerebrovascular accidents terminating in a January 2016 event leaving him with a profound ischemic neurologic deficit. Patient is developed contractures and pressure injuries with a amputation of his left lower extremity in September of this year due to refractory infection. Patient was readmitted with lesion involving the right lower extremity. Patient in addition to hypertension was a diabetic. Since his last stroke he has lost a substantial amount of body weight and has been gradually withdrawn from diabetic care his capillary blood glucoses at home have been acceptable. Since admission capillary blood glucoses also were acceptable and no coverage is required thus far. He is more alert this morning and yesterday with stable vital signs. Exam - Constitutional Vitals: Period Temp Pulse Resp BP Sys/Valenzuela Pulse Ox Last 24 Hr 98.2 F-99.5 F 72-90 12-20 98-158/24-77 94-100 General appearance: no acute distress, under weight - Respiratory Respiratory exam: Present: clear to auscultation bilaterally. Absent: rales, rhonchi, wheezes - Cardiovascular Cardiovascular exam: Present: regular rate and rhythm - GI/Abdominal GI/Abdominal exam: Present: normal bowel sounds. Absent: tenderness - Extremities Exam Extremities exam: Present: edema - Neurological Exam Neurological exam: Present: alert Results - Labs CBC & BMP: 03/01/17 19:54 03/01/17 19:54 Quality Measures - VTE Contraindication to Pharmacological VTE Prophylaxis: High Risk of Bleeding Contraindication to Mechanical VTE Prophylaxis: Ischemic Vascular Disease
[2017-03-03] MEDS: PANTOPRAZOLE 40 MG TABLET PO SCH (08:23)
[2017-03-03] MEDS: COLLAGENASE OINT 30 GM TUBE TOP SCH (12:00)
[2017-03-03] MEDS: SKIN HEALING OINT (AQUAPHOR) 50 GM TUBE TOP PRN (12:00)
[2017-03-03] MEDS: DESITIN 4OZ/NYSTATIN 15 GRAM MIXTURE PASTE TOP SCH ×2 (12:00→20:49)
--- NOTE | 2017-03-03 12:33 | General Surgery Progress Note ---
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 Infected right diabetic foot wound. Will initiate local care while we plan for vascular workup. Agree with present antibiotics and will try to moisturize this area before we plan any kind of surgical intervention, we did need to assess his vascular status so we will get some noninvasive lower arterial studies on this area. 03/03/17. Right foot wound is stable. There does appear to be a vascular/ arterial insufficiency component. Dr Arroyo would like to consider CTA to look for proximal occlusion that may be amenable to IR angioplasty but I'm not certain how aggressively his family wants to treat this in light of his overall situation and of his contractures and recent left AKA for similar circumstance. His is not present today, so we will continue his local care until she can be reached. Current Visit: Yes (2) Failure to thrive Status: Acute Assessment and plan: 03/02/2017. Post CVA with failure to thrive and approximately 70 pound weight loss in the past 8 months. We will plan to get a nutritional assessment through dietary, and a repeat swallowing study. He obviously is not getting good p.o. intake, and he will need good nutritional support for healing. May need to approach the possibility of PEG tube with his . 03/03/17 Results notes. Staff report that he does eat fairly well but requires patience & persistence. We will continue present care & discuss with his . Current Visit: No Subjective Patient reports: Present: other (No verbal communication effort) Exam - Constitutional Vitals: Period Temp Pulse Resp BP Sys/Valenzuela Pulse Ox Last 24 Hr 98.2 F-99.5 F 72-96 12-20 98-158/24-77 96-100 General appearance: cachectic - Extremities Exam Extremities exam: Present: other (Right foot pressure area remains dry with fixed eschar. No advancing ischemia, no advancing erythema. There is no purulence or new pressure change. ) Results - Labs CBC & BMP: 03/01/17 19:54 03/01/17 19:54 Lab Results: I have reviewed the past 24 hour labs (CXR clear. KRYSTLE > 1, however arterial doppler waveform is abnormal below the knee, suggesting poor flow; likely also stiff vessels as well.) Quality Measures - VTE Contraindication to Pharmacological VTE Prophylaxis: High Risk of Bleeding Contraindication to Mechanical VTE Prophylaxis: Ischemic Vascular Disease
[2017-03-04] MEDS: PIPERACILLIN/TAZOBACTAM 3,375 MG in SODIUM CHLORIDE 0.9% 100 ML IV SCH ×3 (06:33→23:58)
[2017-03-04] MEDS: SODIUM CHLORIDE 0.45% 1,000 ML IV SCH ×3 (06:37→21:05)
--- NOTE | 2017-03-04 08:26 | Hospitalist Progress Note ---
Assessment and Plan (1) Diabetes mellitus Status: Chronic Assessment and plan: Severe weight loss following his most recent stroke. The patient has required no diabetic treatment at home due to a diminished oral intake and weight loss. He should be followed for any potential stress associated elevations in his blood sugar with serial capillary blood glucose levels holding sliding scale coverage until significant persistent elevation of blood glucose Current Visit: No Qualifiers: Diabetes mellitus type: type 2 (2) CVA (cerebral vascular accident) Status: Chronic Assessment and plan: Multifocal cerebrovascular accidents without embolic site identified. Severe residual ischemic neurologic deficit with possible ischemic dementia versus profound depression. Current Visit: No (3) Diabetic infection of right foot Status: Chronic Assessment and plan: Previous left lower extremity amputation for same process Current Visit: Yes Hospitalist: Subjective Interval history: 66-year-old male chronic hypertension with multiple cerebrovascular accidents most recent in January 2016 terminating with severe ischemic neurologic deficit. The patient is developed in the past pressure injuries leading to the loss of the left lower extremity. He has lesions on the right leg potentially vascular in origin being addressed by surgery. Patient since his last stroke is had a progressive weight loss. He has been cared for at home by his with difficulty maintaining his oral intake. He has had progressive withdrawal and medication due to the weight loss and the poor oral intake. He was seen in consultation regarding his diabetes. He has had intermittent elevations in his blood sugar associated with the institution of Ensure but continues to have normal unmedicated blood glucoses at other times. There is been a brief discussion with family regarding possible PEG tube but no decision. His vital signs are stable he is awake alert appears to be eating somewhat more he typically has a normal morning blood glucose with variable rise during the course of the day. We have continued to withhold long-acting agents due to concerns about maintaining caloric intake. Exam - Constitutional Vitals: Period Temp Pulse Resp BP Sys/Valenzuela Pulse Ox Last 24 Hr 98.0 F-99.3 F 73-102 16-20 116-164/38-83 98-100 General appearance: under weight - Respiratory Respiratory exam: Present: clear to auscultation bilaterally. Absent: rales, rhonchi, wheezes - Cardiovascular Cardiovascular exam: Present: regular rate and rhythm - GI/Abdominal GI/Abdominal exam: Present: normal bowel sounds. Absent: tenderness - Extremities Exam Extremities exam: Absent: edema - Neurological Exam Neurological exam: Present: alert Results - Labs CBC & BMP: 03/01/17 19:54 03/01/17 19:54 Quality Measures - VTE Contraindication to Pharmacological VTE Prophylaxis: High Risk of Bleeding Contraindication to Mechanical VTE Prophylaxis: Ischemic Vascular Disease
[2017-03-04] MEDS ORDERED: SKIN HEALING OINT (AQUAPHOR) 50 GM TUBE TOP PRN (08:47)
--- NOTE | 2017-03-04 08:51 | General Surgery Progress Note ---
Assessment and Plan - Time spent with patient Time spent with patient: Less than 30 minutes (1) Diabetic foot ulcer Status: Acute Assessment and plan: 03/04/2017. The wound on the right foot remains dry and clean with no obvious infection present at this time. Vascular studies indicate poor flow down of this leg and his contracture could be an indication of wrist pain. Will proceed with CTA. Current Visit: Yes (2) CVA (cerebral vascular accident) Status: Chronic Assessment and plan: 03/04/2017. CVA status is unchanged he remains a phasic. Occupational therapy has seen him and he is swallowing somewhat but their recommendation was for feeding tube. Current Visit: No (3) Malnutrition of moderate degree Status: Acute Assessment and plan: 03/04/2017. Malnutrition determine due to lack of eating and progressive weight loss over time. Dietary has seen him and finds it if he is fed he seems to take it is much a 75% of his meals. Otherwise their recommendation was for a PEG tube. Discussed the situation with the and left that with her as a decision that she may have to make in order to aid his nutritional status. I can tell that she is not strongly in favor of the PEG tube at this point but indicated to her the need to be with him and ensure that he eats most of his meals and takes in his supplements to try to improve his nutritional status. Indicated to her that this will improve his healing and overall well being. Current Visit: Yes Subjective Patient reports: Present: no new complaints, afebrile Exam - Constitutional Vitals: Period Temp Pulse Resp BP Sys/Valenzuela Pulse Ox Last 24 Hr 98.0 F-99.3 F 73-102 16-20 116-164/38-83 98-100 General appearance: no acute distress - Head Head exam: Present: normal inspection - ENT ENT exam: Present: normal exam - Neck Neck exam: Present: normal inspection - Respiratory Respiratory exam: Present: clear to auscultation bilaterally, rales - Cardiovascular Cardiovascular exam: Present: RRR - GI/Abdominal GI/Abdominal exam: Present: normal bowel sounds, soft. Absent: tenderness - Extremities Exam Extremities exam: Present: other (Ulcer on the lateral foot remains a little bit dry but no sign of infection. Continues to have a contracture of the knee but can force it out.) - Back Exam Back exam: Present: normal inspection - Neurological Exam Neurological exam: Present: alert, oriented X3, CN II-XII intact - Skin Skin exam: Present: normal color, warm, dry Results - Labs CBC & BMP: 03/01/17 19:54 03/01/17 19:54 Lab Results: I have reviewed the past 24 hour labs Quality Measures - VTE Contraindication to Pharmacological VTE Prophylaxis: High Risk of Bleeding Contraindication to Mechanical VTE Prophylaxis: Ischemic Vascular Disease
[2017-03-04 09:14] LABS: Basophils % 0.1 % (0.0-0.8); Eosinophils % 0.5 % (0.00-10.9); Hematocrit 29.1 VOL% (42.0-52.0); Hemoglobin 9.9 GM/DL (14.0-18.0); Immature Granulocytes % 0.4 %; Immature Granulocytes Absolute 0.03 #; Lymphocytes # 1.6 10*3/uL (1.4-4.0); Lymphocytes % 21.6 % (21.2-54.2); Mean Corpuscular Hemoglobin 31 PG (27-34); Mean Corpuscular Volume 89.5 FL (87-102); Mean Platelet Volume 9.3 FL (9.6-12.0); Monocytes # 0.6 10*3/uL (0.11-0.8); Monocytes % 7.9 % (1.7-12.7); Neutrophils # 5.3 10*3/uL (1.4-7.4); Neutrophils % 69.5 % (38.7-73.9); Platelet Count 224 T/CUMM (130-400); Red Blood Count 3.25 MC/CUMM (3.8-5.5); Red Cell Distribution Width 11.9 % (9.3-17.3); White Blood Count 7.6 T/CUMM (4-12)
[2017-03-04 09:41] LABS: Calcium 9.2 MG/DL (8.5-10.1); Magnesium 1.9 MG/DL (1.8-2.4); Osmolality,Calculated 273.7 MOS/KG (273-304); Potassium 3.9 MMOL/L (3.5-5.1)
[2017-03-04] MEDS: BISOPROLOL 5 MG TABLET PO SCH (12:39)
[2017-03-04] MEDS: hydroCHLOROthiazide 25 MG TABLET PO SCH (12:41)
[2017-03-04] MEDS: COLLAGENASE OINT 30 GM TUBE TOP SCH (12:56)
[2017-03-04] MEDS: DESITIN 4OZ/NYSTATIN 15 GRAM MIXTURE PASTE TOP SCH ×2 (12:57→21:57)
[2017-03-04] MEDS: PANTOPRAZOLE 40 MG TABLET PO SCH (13:03)
[2017-03-04] MEDS: GABAPENTIN 100 MG CAPSULE PO SCH ×3 (13:04→21:05)
[2017-03-04] MEDS: NYSTATIN POWDER 15 GM BOTTLE TOP SCH ×2 (13:04→21:57)
[2017-03-04] MEDS: CHOLECALCIFEROL 1,000 UNIT TABLET PO SCH (13:04)
[2017-03-04] MEDS: POLYETHYLENE GLYCOL POWDER 17 GM PACK PO SCH (13:04)
[2017-03-04] MEDS: FERROUS SULFATE 325 MG TABLET PO SCH (13:32)
--- NOTE | 2017-03-04 13:42 | CT Report ---
Exam: CT angio abdomen/femoral Date: 03/04/2017 8:45 AM Comparison: Prior CT abdomen pelvis 04/08/2012 Indication: Right foot ulceration abnormal vascular studies Technical: Axial CT imaging was performed from the lung bases through the iliac crest with to the toes. Coronal and sagittal reformatted images were additionally created and submitted for review. 3-D Maximal intensity projection images of the vasculature were additionally created and are available for review. 100 cc of Omnipaque 350 were utilized. Dose reduction: This CT exam was performed using one or more of the following dose reduction techniques: Automated exposure control, automated adjustment of the mA and/or KV according to patient size, or use of iterative reconstruction technique. Total DLP: 463 mGy*cm Findings: CT angiogram: Abdomen/pelvis. Distal thoracic aorta is nonaneurysmal with minimal atherosclerotic plaque noted. Abdominal aorta is also nonaneurysmal with no significant atherosclerotic plaque identified. The celiac artery is patent with no significant luminal stenosis. The superior mesenteric artery is moderately narrowed at the origin (approximately 60-70%). Distal aorta is patent. Inferior mesenteric artery is diminutive but patent. The bilateral common, external and internal iliac vessels are patent. Of note, the left internal iliac artery is markedly diminutive in size. Right lower extremity: Common femoral artery is patent with no significant atherosclerotic disease or luminal stenosis. There is moderate long segment stenosis within the right superficial femoral artery. An indwelling endovascular stent versus circumferential atherosclerotic calcification is suggested nearly throughout the entire length of the SFA. Moderate multifocal luminal stenosis is also noted within the popliteal above the knee. At the level of the knee, there is metallic hardware which completely obscures the vasculature. Below the level of the arthroplasty hardware, there is opacification of the distal popliteal artery and tibioperoneal trunk with multifocal atherosclerotic plaque noted. There is suggestion of patency of the posterior tibial and peroneal vessels. The anterior tibial vessel demonstrates multifocal atherosclerotic plaque and appears occluded throughout the lower leg with reconstitution of flow/opacification at the dorsalis pedis artery. Overall, there is a two-vessel runoff suggested to the right foot. Left lower extremity: Above the knee amputation postsurgical changes noted. Proximal common femoral artery is patent. Soft tissue analysis: Lung bases: Minimal posterior basilar atelectatic changes. Centrilobular emphysema is also noted. There is no pleural or pericardial effusion. Liver and gallbladder: No abnormal enhancing lesions. Gallbladder is nondilated. No gallstones are visualized. Portal vein is patent. Spleen and Pancreas: Unremarkable Adrenals: Unremarkable Kidneys: Both kidneys are equally perfused and demonstrate no evidence for obstructive uropathy. Stomach: Stomach is moderately distended with ingested material and air but is otherwise grossly unremarkable. Retroperitoneum: No enlarged lymph nodes. Bowel and Mesentery: Small bowel is nondilated. There is no free fluid/air within the abdomen. Moderate stool noted throughout the colon which is otherwise not well evaluated. There is a prominent amount of stool noted within the rectal vault suggesting fecal stasis/constipation and/or fecal impaction.. Pelvis: Bladder: Bladder is unremarkable for degree of distention. Fluid: No free fluid identified. Lymph nodes: No enlarged lymph nodes. Pelvic organs: Prostate is enlarged measuring 5.2 cm in the transaxial dimension. Osseous structures: No suspicious appearing osseous abnormalities noted. Impression: 1. Status post left [id number] amputation. 2. Two-vessel runoff to the right foot with extensive multifocal atherosclerotic plaque and areas of moderate luminal stenosis throughout the superficial femoral and popliteal vessels. There is suggestion of occlusion of the anterior tibial artery due to multifocal atherosclerotic plaque. Portions of the popliteal artery are not visualized due to streak artifact from right total knee arthroplasty metallic hardware. 3. Large stool burden within the rectal vault suggesting fecal stasis/constipation and/or fecal impaction. PROCEDURE INTERPRETED AT [facility] [place] DEPARTMENT OF RADIOLOGY Final Report Signed by: Flex Dutta
[2017-03-04] MEDS: SIMVASTATIN 20 MG TABLET PO SCH (17:04)
[2017-03-04] MEDS: TAMSULOSIN 0.4 MG CAPSULE PO SCH (21:05)
[2017-03-05] MEDS: PIPERACILLIN/TAZOBACTAM 3,375 MG in SODIUM CHLORIDE 0.9% 100 ML IV SCH ×3 (06:21→22:28)
--- NOTE | 2017-03-05 08:39 | General Surgery Progress Note ---
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 Infected right diabetic foot wound. Will initiate local care while we plan for vascular workup. Agree with present antibiotics and will try to moisturize this area before we plan any kind of surgical intervention, we did need to assess his vascular status so we will get some noninvasive lower arterial studies on this area. 03/03/17. Right foot wound is stable. There does appear to be a vascular/ arterial insufficiency component. Dr Arroyo would like to consider CTA to look for proximal occlusion that may be amenable to IR angioplasty but I'm not certain how aggressively his family wants to treat this in light of his overall situation and of his contractures and recent left AKA for similar circumstance. His is not present today, so we will continue his local care until she can be reached. 03/05/2017. Right lower extremity wound is improving slowly. He does have some ischemic change, but apparently has had a previous endovascular procedure. His does seem hesitant to pursue any aggressive attempts to improve the situation. At any rate the wound does seem to be debriding well with enzymatic debriding agent (Santyl) and I believe we can obtain a wound culture today. She is still considering the possibility of a PEG tube, so we will continue the present treatment through the weekend. Current Visit: Yes (2) Failure to thrive Status: Acute Assessment and plan: 03/02/2017. Post CVA with failure to thrive and approximately 70 pound weight loss in the past 8 months. We will plan to get a nutritional assessment through dietary, and a repeat swallowing study. He obviously is not getting good p.o. intake, and he will need good nutritional support for healing. May need to approach the possibility of PEG tube with his . 03/03/17 Results notes. Staff report that he does eat fairly well but requires patience & persistence. We will continue present care & discuss with his . Current Visit: No Subjective Patient reports: Present: other (Patient is nonverbal with his communication but smiles and nods his head today. His is present, is feeding him breakfast, and says he had a good night) Exam - Constitutional Vitals: Period Temp Pulse Resp BP Sys/Valenzuela Pulse Ox Last 24 Hr 96.7 F-98.7 F 67-95 16-20 105-163/40-89 96-100 General appearance: no acute distress, cachectic - GI/Abdominal GI/Abdominal exam: Present: hypoactive bowel sounds. Absent: tenderness - Extremities Exam Extremities exam: Present: other (Right lower extremity is contracted and there is extensive muscle wasting. The lateral foot wound eschar is clean. It is much softer today, and I am able to easily lift the proximal edge and remove a small portion of slough. There is no advancing erythema, no advancing ischemic change, and the Santyl looks to be doing a good job of moisturizing the eschar. I see no new pressure areas.) Results - Labs CBC & BMP: 03/04/17 08:55 03/04/17 08:55 - Diagnostic Findings Procedure: CT: report reviewed by me (CTA report was noted. He apparently has had endovascular stent placed on the right. See Dr. Arroyo's comments.) Quality Measures - VTE Contraindication to Pharmacological VTE Prophylaxis: High Risk of Bleeding Contraindication to Mechanical VTE Prophylaxis: Ischemic Vascular Disease
[2017-03-05] MEDS ORDERED: BISACODYL 10 MG SUPP RECTAL ONE (08:43)
[2017-03-05] MEDS: hydroCHLOROthiazide 25 MG TABLET PO SCH (09:19)
[2017-03-05] MEDS: CHOLECALCIFEROL 1,000 UNIT TABLET PO SCH (09:19)
[2017-03-05] MEDS: BISOPROLOL 5 MG TABLET PO SCH (09:19)
[2017-03-05] MEDS: PANTOPRAZOLE 40 MG TABLET PO SCH (09:20)
[2017-03-05] MEDS: FERROUS SULFATE 325 MG TABLET PO SCH (09:20)
[2017-03-05] MEDS: GABAPENTIN 100 MG CAPSULE PO SCH ×3 (09:20→21:31)
[2017-03-05] MEDS: POLYETHYLENE GLYCOL POWDER 17 GM PACK PO SCH (09:22)
[2017-03-05] MEDS: NYSTATIN POWDER 15 GM BOTTLE TOP SCH ×2 (13:45→21:40)
[2017-03-05] MEDS: COLLAGENASE OINT 30 GM TUBE TOP SCH (13:46)
[2017-03-05] MEDS: SKIN HEALING OINT (AQUAPHOR) 50 GM TUBE TOP PRN (13:46)
[2017-03-05] MEDS: DESITIN 4OZ/NYSTATIN 15 GRAM MIXTURE PASTE TOP SCH ×2 (13:46→21:39)
[2017-03-05] MEDS: SODIUM CHLORIDE 0.45% 1,000 ML IV SCH ×3 (14:50→21:40)
--- NOTE | 2017-03-05 17:27 | Hospitalist Progress Note ---
Assessment and Plan (1) CVA (cerebral vascular accident) Status: Chronic Assessment and plan: Multifocal cerebrovascular accidents without embolic site identified. Severe residual ischemic neurologic deficit with possible ischemic dementia versus profound depression. Current Visit: No Qualifiers: CVA mechanism: thrombosis (2) Failure to thrive Status: Acute Assessment and plan: is thinking about PEG but is undecided. She states that patient is eating better than before. 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 The patient has required no diabetic treatment at home due to a diminished oral intake and weight loss. He should be followed for any potential stress associated elevations in his blood sugar with serial capillary blood glucose levels holding sliding scale coverage until significant persistent elevation of blood glucose Current Visit: No Qualifiers: Diabetes mellitus type: type 2 Diabetes mellitus complication status: with unspecified complications Diabetes mellitus long-term insulin use: with terminal worker use Qualified Code(s): E11.8 - Type 2 diabetes mellitus with unspecified complications; Z79.4 - correction (current) use of insulin Hospitalist: Subjective Interval history: 66-year-old male chronic hypertension with multiple cerebrovascular accidents most recent in January 2016 terminating with severe ischemic neurologic deficit. The patient has developed in the past pressure injuries leading to the loss of the left lower extremity. He has lesions on the right leg potentially vascular in origin being addressed by surgery. Patient since his last stroke is had a progressive weight loss. He has been cared for at home by his with difficulty maintaining his oral intake. He has had progressive withdrawal and medication due to the weight loss and the poor oral intake. He was seen in consultation regarding his diabetes. He has had intermittent elevations in his blood sugar associated with the institution of Ensure but continues to have normal unmedicated blood glucoses at other times. There is been a brief discussion with family regarding possible PEG tube but no decision. His vital signs are stable he is awake alert appears to be eating somewhat more he typically has a normal morning blood glucose with variable rise during the course of the day. We have continued to withhold long-acting agents due to concerns about maintaining caloric intake. Exam - Constitutional Vitals: Period Temp Pulse Resp BP Sys/Valenzuela Pulse Ox Last 24 Hr 96.7 F-98.8 F 67-79 16-20 105-151/47-89 94-99 General appearance: no acute distress - Head Head exam: Present: normal inspection, normocephalic - Eye Eye exam: Present: EOMI Pupils: Present: GENTRY - ENT ENT exam: Present: normal exam - Neck Neck exam: Present: normal inspection - Respiratory Respiratory exam: Present: clear to auscultation bilaterally - Cardiovascular Cardiovascular exam: Present: regular rate and rhythm - GI/Abdominal GI/Abdominal exam: Present: normal bowel sounds - Extremities Exam Extremities exam: Present: normal inspection, normal capillary refill - Neurological Exam Neurological exam: Present: oriented X3 - Psychiatric Psychiatric exam: Present: normal affect, normal mood - Skin Skin exam: Present: normal color Results - Labs CBC & BMP: 03/04/17 08:55 03/04/17 08:55 Quality Measures - VTE Contraindication to Pharmacological VTE Prophylaxis: High Risk of Bleeding Contraindication to Mechanical VTE Prophylaxis: Ischemic Vascular Disease
[2017-03-05] MEDS: SIMVASTATIN 20 MG TABLET PO SCH (18:37)
[2017-03-05] MEDS: TAMSULOSIN 0.4 MG CAPSULE PO SCH (21:31)
[2017-03-06] MEDS: SODIUM CHLORIDE 0.45% 1,000 ML IV SCH ×4 (05:58→22:45)
[2017-03-06] MEDS: PIPERACILLIN/TAZOBACTAM 3,375 MG in SODIUM CHLORIDE 0.9% 100 ML IV SCH ×2 (06:02→17:45)
--- NOTE | 2017-03-06 08:19 | General Surgery Progress Note ---
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 Current Visit: Yes Subjective Patient reports: Present: no new complaints Exam - Constitutional Vitals: Period Temp Pulse Resp BP Sys/Valenzuela Pulse Ox Last 24 Hr 97.3 F-98.8 F 69-76 16-20 78-151/51-71 94-98 General appearance: no acute distress - Respiratory Respiratory exam: Present: clear to auscultation bilaterally - Cardiovascular Cardiovascular exam: Present: RRR - GI/Abdominal GI/Abdominal exam: Present: soft - Extremities Exam Extremities exam: Present: other (Right lateral foot ulcer with small amount of necrotic eschar and tissue present.) Results - Labs CBC & BMP: 03/04/17 08:55 03/04/17 08:55 Quality Measures - VTE Contraindication to Pharmacological VTE Prophylaxis: High Risk of Bleeding Contraindication to Mechanical VTE Prophylaxis: Ischemic Vascular Disease
[2017-03-06] MEDS: SKIN HEALING OINT (AQUAPHOR) 50 GM TUBE TOP PRN (09:45)
[2017-03-06] MEDS: DESITIN 4OZ/NYSTATIN 15 GRAM MIXTURE PASTE TOP SCH ×2 (09:45→21:04)
[2017-03-06] MEDS: COLLAGENASE OINT 30 GM TUBE TOP SCH (09:45)
[2017-03-06] MEDS: POLYETHYLENE GLYCOL POWDER 17 GM PACK PO SCH (10:32)
[2017-03-06] MEDS: GABAPENTIN 100 MG CAPSULE PO SCH ×3 (10:32→21:04)
[2017-03-06] MEDS: hydroCHLOROthiazide 25 MG TABLET PO SCH (11:20)
[2017-03-06] MEDS: BISOPROLOL 5 MG TABLET PO SCH (11:21)
[2017-03-06] MEDS: CHOLECALCIFEROL 1,000 UNIT TABLET PO SCH (11:21)
[2017-03-06] MEDS: PANTOPRAZOLE 40 MG TABLET PO SCH (11:23)
[2017-03-06] MEDS: FERROUS SULFATE 325 MG TABLET PO SCH (11:23)
[2017-03-06] MEDS: NYSTATIN POWDER 15 GM BOTTLE TOP SCH ×2 (11:26→21:04)
[2017-03-06] MEDS: SIMVASTATIN 20 MG TABLET PO SCH (17:46)
--- NOTE | 2017-03-06 20:28 | Hospitalist Progress Note ---
Assessment and Plan (1) CVA (cerebral vascular accident) Status: Chronic Assessment and plan: Multifocal cerebrovascular accidents without embolic site identified. Severe residual ischemic neurologic deficit with possible ischemic dementia versus profound depression. Current Visit: No Qualifiers: CVA mechanism: thrombosis (2) Failure to thrive Status: Acute Assessment and plan: is thinking about PEG but is undecided. She states that patient is eating better than before. 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 The patient has required no diabetic treatment at home due to a diminished oral intake and weight loss. He should be followed for any potential stress associated elevations in his blood sugar with serial capillary blood glucose levels holding sliding scale coverage until significant persistent elevation of blood glucose Current Visit: No Qualifiers: Diabetes mellitus type: type 2 Diabetes mellitus complication status: with unspecified complications Diabetes mellitus intermediate card tender insulin use: with intermediate card tender use Qualified Code(s): E11.8 - Type 2 diabetes mellitus with unspecified complications; Z79.4 - intermediate (current) use of insulin (5) Peripheral vascular disease Status: Chronic Assessment and plan: Seen by surgery but no surgical intervention and he is to be treated medically. Current Visit: Yes Hospitalist: Subjective Interval history: 66-year-old male chronic hypertension with multiple cerebrovascular accidents most recent in January 2016 terminating with severe ischemic neurologic deficit. The patient has developed in the past pressure injuries leading to the loss of the left lower extremity. He has lesions on the right leg potentially vascular in origin being addressed by surgery. Patient since his last stroke is had a progressive weight loss. He has been cared for at home by his with difficulty maintaining his oral intake. He has had progressive withdrawal and medication due to the weight loss and the poor oral intake. He was seen in consultation regarding his diabetes. He has had intermittent elevations in his blood sugar associated with the institution of Ensure but continues to have normal unmedicated blood glucoses at other times. There is been a brief discussion with family regarding possible PEG tube but no decision, as family thinks he ie eating ok. His vital signs are stable, he appears to be eating somewhat more he typically has a normal morning blood glucose with variable rise during the course of the day. We have continued to withhold long-acting agents due to concerns about maintaining caloric intake. He has severe PVD but no surgical intervention as he is asymptomatic. Exam - Constitutional Vitals: Period Temp Pulse Resp BP Sys/Valenzuela Pulse Ox Last 24 Hr 97.3 F-98.5 F 70-86 16-20 78-136/51-77 95-98 General appearance: no acute distress - Head Head exam: Present: normal inspection, normocephalic - Eye Eye exam: Present: EOMI Pupils: Present: GENTRY - ENT ENT exam: Present: normal exam - Neck Neck exam: Present: normal inspection - Respiratory Respiratory exam: Present: clear to auscultation bilaterally - Cardiovascular Cardiovascular exam: Present: regular rate and rhythm - GI/Abdominal GI/Abdominal exam: Present: normal bowel sounds - Extremities Exam Extremities exam: Present: normal inspection - Back Exam Back exam: Present: normal inspection - Neurological Exam Neurological exam: Present: alert - Psychiatric Psychiatric exam: Present: flat affect - Skin Skin exam: Present: normal color, dry Results - Labs CBC & BMP: 03/04/17 08:55 03/04/17 08:55 Quality Measures - VTE Contraindication to Pharmacological VTE Prophylaxis: High Risk of Bleeding Contraindication to Mechanical VTE Prophylaxis: Ischemic Vascular Disease
[2017-03-06] MEDS: DOCUSATE SODIUM 100 MG CAPSULE PO SCH (21:03)
[2017-03-06] MEDS: TAMSULOSIN 0.4 MG CAPSULE PO SCH (21:04)
[2017-03-07] MEDS: PIPERACILLIN/TAZOBACTAM 3,375 MG in SODIUM CHLORIDE 0.9% 100 ML IV SCH ×2 (04:20→15:23)
[2017-03-07] MEDS: SODIUM CHLORIDE 0.45% 1,000 ML IV SCH ×4 (06:44→22:45)
--- NOTE | 2017-03-07 09:12 | Hospitalist Progress Note ---
Assessment and Plan (1) Diabetic foot ulcer Status: Acute Assessment and plan: Being managed by primary surgical provider. Patient is afebrile on antibiotic Current Visit: Yes (2) Failure to thrive Status: Acute Assessment and plan: Reported eating better after placed on soft diet he is seemed to be very well malnourished but also be BMI may not be accurate as patient is missing left lower limb due to amputation Current Visit: Yes (3) Anemia Status: Acute Assessment and plan: Has anemia as part of his problem list. There are no labs for the last 3 days I will order for the morning labs and have hospitalist to follow-up tomorrow no melena or bleeding reported probably chronic Current Visit: No (4) Diabetes mellitus Status: Chronic Assessment and plan: Will need to avoid strict diabetes control and cause hypoglycemia patient is not on any medications now. I will still do twice a day blood glucose check with the Humalog as needed Current Visit: No Qualifiers: Diabetes mellitus type: type 2 Diabetes mellitus complication status: with unspecified complications Diabetes mellitus long term care social worker insulin use: with chcf use Qualified Code(s): E11.8 - Type 2 diabetes mellitus with unspecified complications; Z79.4 - [facility] (current) use of insulin Hospitalist: Subjective Interval history: Mr. Hallman is a 66-year-old male with history of for hypertension, and CVA. He is bedbound. He also had history of diabetes mellitus but due to weight loss after his stroke his blood sugar had been controlled and has not required any medications. He was admitted for worsening right lower extremity wound on the foot with ulceration. We have been following for medical management. Pt was not eating well prior to coming here but his diet was changed yesterday to soft and he was able to eat well this morning. mentioned that patient sometimes have thick sputum and has problems with swallowing. She also requested if the Accu-Chek frequency can be decreased. Patient has been afebrile Exam - Constitutional Vitals: Period Temp Pulse Resp BP Sys/Valenzuela Pulse Ox Last 24 Hr 98 F-99.3 F 66-91 16-20 97-136/47-91 95-100 General appearance: under weight - Respiratory Respiratory exam: Present: clear to auscultation bilaterally. Absent: rales, rhonchi - Cardiovascular Cardiovascular exam: Present: regular rate and rhythm. Absent: tachycardia - GI/Abdominal GI/Abdominal exam: Present: normal bowel sounds, soft. Absent: distended, tenderness - Extremities Exam Extremities exam: Present: other (Patient had left leg amputation. Right leg without any swelling edema ulcers on right foot covered with dressing with no oozing at present). Absent: edema - Neurological Exam Neurological exam: Present: alert Results - Labs CBC & BMP: 03/04/17 08:55 03/04/17 08:55 Lab Results: I have reviewed the past 24 hour labs Quality Measures - VTE Contraindication to Pharmacological VTE Prophylaxis: High Risk of Bleeding Contraindication to Mechanical VTE Prophylaxis: Ischemic Vascular Disease
[2017-03-07] MEDS ORDERED: GLUCAGON 1 MG VIAL IM PRN (09:23)
[2017-03-07] MEDS ORDERED: DEXTROSE 50% 25 GM/50 ML VIAL IV PRN (09:23)
[2017-03-07] MEDS ORDERED: guaiFENesin 200 MG/10 ML UDCUP PO PRN (09:26)
[2017-03-07] MEDS: hydroCHLOROthiazide 25 MG TABLET PO SCH (11:06)
[2017-03-07] MEDS: FERROUS SULFATE 325 MG TABLET PO SCH (11:06)
[2017-03-07] MEDS: GABAPENTIN 100 MG CAPSULE PO SCH ×3 (11:09→21:12)
[2017-03-07] MEDS: CHOLECALCIFEROL 1,000 UNIT TABLET PO SCH (11:10)
[2017-03-07] MEDS: PANTOPRAZOLE 40 MG TABLET PO SCH (11:10)
[2017-03-07] MEDS: BISOPROLOL 5 MG TABLET PO SCH (11:11)
[2017-03-07] MEDS: DOCUSATE SODIUM 100 MG CAPSULE PO SCH ×2 (11:19→21:12)
[2017-03-07] MEDS: NYSTATIN POWDER 15 GM BOTTLE TOP SCH ×2 (11:20→21:12)
[2017-03-07] MEDS: POLYETHYLENE GLYCOL POWDER 17 GM PACK PO SCH (11:20)
[2017-03-07] MEDS: COLLAGENASE OINT 30 GM TUBE TOP SCH (12:45)
[2017-03-07] MEDS: SKIN HEALING OINT (AQUAPHOR) 50 GM TUBE TOP PRN (12:45)
--- NOTE | 2017-03-07 12:49 | General Surgery Progress Note ---
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 Current Visit: Yes Subjective Patient reports: Present: no new complaints Exam - Constitutional Vitals: Period Temp Pulse Resp BP Sys/Valenzuela Pulse Ox Last 24 Hr 97.7 F-99.3 F 65-91 16-20 97-141/47-91 93-100 General appearance: no acute distress - Head Head exam: Present: normocephalic - Neck Neck exam: Present: normal inspection - Respiratory Respiratory exam: Present: clear to auscultation bilaterally - Cardiovascular Cardiovascular exam: Present: RRR - Extremities Exam Extremities exam: Present: other (No change in the ulcer, some necrotic tissue right lateral foot) - Back Exam Back exam: Present: normal inspection - Neurological Exam Neurological exam: Present: alert Results - Labs CBC & BMP: 03/04/17 08:55 03/04/17 08:55 Quality Measures - VTE Contraindication to Pharmacological VTE Prophylaxis: High Risk of Bleeding Contraindication to Mechanical VTE Prophylaxis: Ischemic Vascular Disease
[2017-03-07] MEDS: DESITIN 4OZ/NYSTATIN 15 GRAM MIXTURE PASTE TOP SCH ×2 (15:36→21:12)
[2017-03-07] MEDS: INSULIN LISPRO 100 UNIT/ML SUBCUT SCH (18:02)
[2017-03-07] MEDS: SIMVASTATIN 20 MG TABLET PO SCH (18:04)
[2017-03-07] MEDS: TAMSULOSIN 0.4 MG CAPSULE PO SCH (21:12)
[2017-03-08] MEDS: PIPERACILLIN/TAZOBACTAM 3,375 MG in SODIUM CHLORIDE 0.9% 100 ML IV SCH ×3 (02:49→18:26)
[2017-03-08 05:21] LABS: Basophils % 0.3 % (0.0-0.8); Eosinophils # 0.1 10*3/uL (0.0-0.87); Hematocrit 26.4 VOL% (42.0-52.0); Hemoglobin 8.9 GM/DL (14.0-18.0); Immature Granulocytes % 0.3 %; Immature Granulocytes Absolute 0.02 #; Lymphocytes # 1.5 10*3/uL (1.4-4.0); Lymphocytes % 24.7 % (21.2-54.2); Mean Corpuscular HGB Conc 33.7 GM/DL (32-36); Mean Corpuscular Hemoglobin 30 PG (27-34); Mean Corpuscular Volume 88.3 FL (87-102); Mean Platelet Volume 9.1 FL (9.6-12.0); Monocytes # 0.5 10*3/uL (0.11-0.8); Neutrophils % 65.7 % (38.7-73.9); Platelet Count 255 T/CUMM (130-400); Red Blood Count 2.99 MC/CUMM (3.8-5.5); Red Cell Distribution Width 11.8 % (9.3-17.3); White Blood Count 6.2 T/CUMM (4-12)
[2017-03-08] MEDS: SODIUM CHLORIDE 0.45% 1,000 ML IV SCH ×2 (06:41→11:35)
[2017-03-08 08:03] LABS: Albumin 2.3 G/DL (3.4-5.0); Bilirubin,Total 0.5 MG/DL (0.2-1.0); Calcium 8.7 MG/DL (8.5-10.1); Potassium 3.5 MMOL/L (3.5-5.1); Total Protein 5.5 G/DL (6.4-8.3)
--- NOTE | 2017-03-08 08:17 | General Surgery Progress Note ---
Assessment and Plan - Time spent with patient Time spent with patient: Less than 30 minutes (1) Diabetic foot ulcer Status: Acute Assessment and plan: 03/04/2017. The wound on the right foot remains dry and clean with no obvious infection present at this time. Vascular studies indicate poor flow down of this leg and his contracture could be an indication of wrist pain. Will proceed with CTA. 03/08/2017 The ulcer on lateral aspect of the foot looks better the eschars begin to lift off we may be able to treatment in the room just to get a good clean base on it. He has been eating better otherwise been getting 3 meals him a day and I think this is the hernandez to making him better at this point in time. We may have simplify the wound care to work could be easily managed at home by her and we can follow this up possibly the wound center and see exactly if we can get this to clean up a little bit to the point that we might be able to try something different on it at some time. Current Visit: Yes (2) CVA (cerebral vascular accident) Status: Chronic Assessment and plan: 03/04/2017. CVA status is unchanged he remains a phasic. Occupational therapy has seen him and he is swallowing somewhat but their recommendation was for feeding tube. Current Visit: No (3) Malnutrition of moderate degree Status: Acute Assessment and plan: 03/04/2017. Malnutrition determine due to lack of eating and progressive weight loss over time. Dietary has seen him and finds it if he is fed he seems to take it is much a 75% of his meals. Otherwise their recommendation was for a PEG tube. Discussed the situation with the and left that with her as a decision that she may have to make in order to aid his nutritional status. I can tell that she is not strongly in favor of the PEG tube at this point but indicated to her the need to be with him and ensure that he eats most of his meals and takes in his supplements to try to improve his nutritional status. Indicated to her that this will improve his healing and overall well being. Current Visit: Yes Subjective Patient reports: Present: feels better, tolerating a regular diet, afebrile Exam - Constitutional Vitals: Period Temp Pulse Resp BP Sys/Valenzuela Pulse Ox Last 24 Hr 96.9 F-98.7 F 65-85 16-20 123-166/42-88 95-99 General appearance: mild distress - Head Head exam: Present: normal inspection - ENT ENT exam: Present: normal exam - Neck Neck exam: Present: normal inspection - Respiratory Respiratory exam: Present: clear to auscultation bilaterally, rales - Cardiovascular Cardiovascular exam: Present: RRR - GI/Abdominal GI/Abdominal exam: Present: normal bowel sounds, soft - Extremities Exam Extremities exam: Present: other (Wound on the lateral part of the right foot the eschar is softer and loose at this time around the edges.) - Back Exam Back exam: Present: normal inspection - Neurological Exam Neurological exam: Present: alert, altered - Skin Skin exam: Present: normal color, warm, dry Results - Labs CBC & BMP: 03/08/17 03:54 03/08/17 03:54 Lab Results: I have reviewed the past 24 hour labs Quality Measures - VTE Contraindication to Pharmacological VTE Prophylaxis: High Risk of Bleeding Contraindication to Mechanical VTE Prophylaxis: Ischemic Vascular Disease
[2017-03-08] MEDS: INSULIN LISPRO 100 UNIT/ML SUBCUT SCH ×2 (09:07→16:56)
[2017-03-08] MEDS: hydroCHLOROthiazide 25 MG TABLET PO SCH (09:14)
[2017-03-08] MEDS: FERROUS SULFATE 325 MG TABLET PO SCH (09:15)
[2017-03-08] MEDS: MULTIVITAMIN (CENTRUM) TABLET PO SCH (09:15)
[2017-03-08] MEDS: CHOLECALCIFEROL 1,000 UNIT TABLET PO SCH (09:15)
[2017-03-08] MEDS: BISOPROLOL 5 MG TABLET PO SCH (09:15)
[2017-03-08] MEDS: PANTOPRAZOLE 40 MG TABLET PO SCH (09:16)
[2017-03-08] MEDS: DOCUSATE SODIUM 100 MG CAPSULE PO SCH ×2 (09:16→21:47)
[2017-03-08] MEDS: PENTOXIFYLLINE 400 MG TABLET PO SCH ×3 (09:17→21:47)
[2017-03-08] MEDS: COLLAGENASE OINT 30 GM TUBE TOP SCH (09:26)
[2017-03-08] MEDS: NYSTATIN POWDER 15 GM BOTTLE TOP SCH ×2 (09:26→21:55)
[2017-03-08] MEDS: DESITIN 4OZ/NYSTATIN 15 GRAM MIXTURE PASTE TOP SCH ×2 (09:26→21:48)
[2017-03-08] MEDS: POLYETHYLENE GLYCOL POWDER 17 GM PACK PO SCH (09:26)
[2017-03-08] MEDS: GABAPENTIN 100 MG CAPSULE PO SCH ×3 (09:26→21:47)
--- NOTE | 2017-03-08 15:48 | Hospitalist Progress Note ---
Assessment and Plan (1) Diabetic foot ulcer Status: Acute Assessment and plan: Management per Dr. Arroyo Current Visit: Yes (2) Failure to thrive Status: Acute Assessment and plan: encouraging PO Consults; supplements between meals; dietary consult Current Visit: Yes (3) Malnutrition Status: Acute Assessment and plan: encouraging PO Consults; supplements between meals; dietary consult Current Visit: Yes (4) Hypertension Status: Acute Assessment and plan: Continue current treatment Current Visit: No (5) Anemia Status: Chronic Assessment and plan: anemia panel; FOBT; will monitor Current Visit: No Qualifiers: Anemia type: unspecified type Qualified Code(s): D64.9 - Anemia, unspecified (6) Diabetes mellitus Status: Chronic Assessment and plan: Continue current treatment Current Visit: No Qualifiers: Diabetes mellitus type: type 2 Diabetes mellitus complication status: with unspecified complications Diabetes mellitus superintendent container terminal insulin use: with custodial use Qualified Code(s): E11.8 - Type 2 diabetes mellitus with unspecified complications; Z79.4 - shelter (current) use of insulin Hospitalist: Subjective Interval history: Mr. Hallman is a 66-year-old male with history of hypertension and CVA. He has a left AKA. Hospitalist service from the past for medical management. Patient without complaints. Exam - Constitutional Vitals: Period Temp Pulse Resp BP Sys/Valenzuela Pulse Ox Last 24 Hr 96.9 F-98.7 F 65-85 16-20 123-166/42-88 94-99 General appearance: no acute distress, under weight - Respiratory Respiratory exam: Present: clear to auscultation bilaterally - Cardiovascular Cardiovascular exam: Present: regular rate and rhythm - GI/Abdominal GI/Abdominal exam: Present: normal bowel sounds, soft. Absent: tenderness - Extremities Exam Extremities exam: Present: other (left AKA). Absent: edema - Neurological Exam Neurological exam: Present: alert - Psychiatric Psychiatric exam: Present: other (foot wound on right lateral foot) Results - Labs CBC & BMP: 03/08/17 03:54 03/08/17 03:54 Quality Measures - VTE Contraindication to Pharmacological VTE Prophylaxis: High Risk of Bleeding Contraindication to Mechanical VTE Prophylaxis: Ischemic Vascular Disease
[2017-03-08] MEDS: SIMVASTATIN 20 MG TABLET PO SCH (18:26)
[2017-03-08] MEDS: TAMSULOSIN 0.4 MG CAPSULE PO SCH (21:47)
[2017-03-09] MEDS: SODIUM CHLORIDE 0.45% 1,000 ML IV SCH ×2 (01:24→10:50)
[2017-03-09] MEDS: PIPERACILLIN/TAZOBACTAM 3,375 MG in SODIUM CHLORIDE 0.9% 100 ML IV SCH ×3 (02:39→19:06)
[2017-03-09 07:26] LABS: Basophils % 0.3 % (0.0-0.8); Eosinophils % 0.4 % (0.00-10.9); Hematocrit 27.9 VOL% (42.0-52.0); Hemoglobin 9.4 GM/DL (14.0-18.0); Immature Granulocytes % 0.4 %; Immature Granulocytes Absolute 0.03 #; Lymphocytes # 1.8 10*3/uL (1.4-4.0); Lymphocytes % 24.9 % (21.2-54.2); Mean Corpuscular HGB Conc 33.7 GM/DL (32-36); Mean Corpuscular Hemoglobin 30 PG (27-34); Mean Corpuscular Volume 88.6 FL (87-102); Monocytes # 0.5 10*3/uL (0.11-0.8); Neutrophils # 4.9 10*3/uL (1.4-7.4); Platelet Count 289 T/CUMM (130-400); Red Blood Count 3.15 MC/CUMM (3.8-5.5); White Blood Count 7.2 T/CUMM (4-12)
[2017-03-09 07:27] LABS: Basophils % 0.1 % (0.0-0.8); Eosinophils % 0.3 % (0.00-10.9); Hematocrit 27.1 VOL% (42.0-52.0); Hemoglobin 9.2 GM/DL (14.0-18.0); Immature Granulocytes % 0.8 %; Immature Granulocytes Absolute 0.06 #; Lymphocytes # 1.8 10*3/uL (1.4-4.0); Lymphocytes % 24.6 % (21.2-54.2); Mean Corpuscular HGB Conc 33.9 GM/DL (32-36); Mean Corpuscular Hemoglobin 30 PG (27-34); Mean Corpuscular Volume 88.9 FL (87-102); Mean Platelet Volume 8.9 FL (9.6-12.0); Monocytes # 0.6 10*3/uL (0.11-0.8); Monocytes % 7.7 % (1.7-12.7); Neutrophils # 4.9 10*3/uL (1.4-7.4); Neutrophils % 66.5 % (38.7-73.9); Platelet Count 289 T/CUMM (130-400); Red Blood Count 3.05 MC/CUMM (3.8-5.5); White Blood Count 7.4 T/CUMM (4-12)
[2017-03-09] MEDS: INSULIN LISPRO 100 UNIT/ML SUBCUT SCH ×2 (07:59→17:23)
[2017-03-09 08:00] LABS: Albumin 2.5 G/DL (3.4-5.0); Bilirubin,Total 0.7 MG/DL (0.2-1.0); Calcium 8.5 MG/DL (8.5-10.1); Osmolality,Calculated 272.5 MOS/KG (273-304); Total Protein 5.8 G/DL (6.4-8.3)
[2017-03-09 08:09] LABS: Folate 20.7 NG/ML (5.4-24.0); Vitamin B12 841 PG/ML (211-911)
[2017-03-09 08:35] LABS: Sedimentation Rate-Westergren 112 MM/HR (0-20)
--- NOTE | 2017-03-09 08:42 | General Surgery Progress Note ---
Assessment and Plan - Time spent with patient Time spent with patient: Less than 30 minutes (1) Diabetic foot ulcer Status: Acute Assessment and plan: 03/04/2017. The wound on the right foot remains dry and clean with no obvious infection present at this time. Vascular studies indicate poor flow down of this leg and his contracture could be an indication of wrist pain. Will proceed with CTA. 03/08/2017 The ulcer on lateral aspect of the foot looks better the eschars begin to lift off we may be able to treatment in the room just to get a good clean base on it. He has been eating better otherwise been getting 3 meals him a day and I think this is the hernandez to making him better at this point in time. We may have simplify the wound care to work could be easily managed at home by her and we can follow this up possibly the wound center and see exactly if we can get this to clean up a little bit to the point that we might be able to try something different on it at some time. 03/09/2017. Patient seems to be fairly stable at this time tolerating his is eating with help. at this time does not want a PEG tube in place. His wound continues to be stable and probably we could debride in the room a little bit of just clean off the surface eschar and allow some additional medicine to get to the base try to clean it up a little bit better. Looking possibility of sending him home tomorrow for continued care at that time. Current Visit: Yes (2) CVA (cerebral vascular accident) Status: Chronic Assessment and plan: 03/04/2017. CVA status is unchanged he remains a phasic. Occupational therapy has seen him and he is swallowing somewhat but their recommendation was for feeding tube. Current Visit: No (3) Malnutrition of moderate degree Status: Acute Assessment and plan: 03/04/2017. Malnutrition determine due to lack of eating and progressive weight loss over time. Dietary has seen him and finds it if he is fed he seems to take it is much a 75% of his meals. Otherwise their recommendation was for a PEG tube. Discussed the situation with the and left that with her as a decision that she may have to make in order to aid his nutritional status. I can tell that she is not strongly in favor of the PEG tube at this point but indicated to her the need to be with him and ensure that he eats most of his meals and takes in his supplements to try to improve his nutritional status. Indicated to her that this will improve his healing and overall well being. Current Visit: Yes Subjective Patient reports: Present: no new complaints, afebrile Exam - Constitutional Vitals: Period Temp Pulse Resp BP Sys/Valenzuela Pulse Ox Last 24 Hr 97.6 F-99.1 F 70-83 16-18 124-160/55-79 94-98 General appearance: mild distress - Head Head exam: Present: normal inspection - ENT ENT exam: Present: normal exam - Neck Neck exam: Present: normal inspection - Respiratory Respiratory exam: Present: rales - Cardiovascular Cardiovascular exam: Present: RRR - GI/Abdominal GI/Abdominal exam: Present: hypoactive bowel sounds, soft - Extremities Exam Extremities exam: Present: normal inspection, other (Ulcer on the right foot has an eschar but it is softened up especially on the edges.) - Neurological Exam Neurological exam: Present: altered - Skin Skin exam: Present: normal color, warm, dry Results - Labs CBC & BMP: 03/09/17 06:42 03/09/17 06:42 Lab Results: I have reviewed the past 24 hour labs Quality Measures - VTE Contraindication to Pharmacological VTE Prophylaxis: High Risk of Bleeding Contraindication to Mechanical VTE Prophylaxis: Ischemic Vascular Disease
[2017-03-09 09:00] LABS: Hemoglobin A1 (Alkaline) 97.9 % (96.5-98.5); Hemoglobin A2 (Alkaline) 2.1 % (1.5-3.5)
[2017-03-09] MEDS: POLYETHYLENE GLYCOL POWDER 17 GM PACK PO SCH (09:24)
[2017-03-09] MEDS: hydroCHLOROthiazide 25 MG TABLET PO SCH (09:24)
[2017-03-09] MEDS: MULTIVITAMIN (CENTRUM) TABLET PO SCH (09:25)
[2017-03-09] MEDS: BISOPROLOL 5 MG TABLET PO SCH (09:25)
[2017-03-09] MEDS: FERROUS SULFATE 325 MG TABLET PO SCH (09:26)
[2017-03-09] MEDS: CHOLECALCIFEROL 1,000 UNIT TABLET PO SCH (09:26)
[2017-03-09] MEDS: DOCUSATE SODIUM 100 MG CAPSULE PO SCH ×2 (09:27→21:20)
[2017-03-09] MEDS: PANTOPRAZOLE 40 MG TABLET PO SCH (09:27)
[2017-03-09] MEDS: PENTOXIFYLLINE 400 MG TABLET PO SCH ×3 (09:28→21:17)
[2017-03-09] MEDS: NYSTATIN POWDER 15 GM BOTTLE TOP SCH ×2 (09:36→21:18)
[2017-03-09] MEDS: GABAPENTIN 100 MG CAPSULE PO SCH ×3 (09:36→21:17)
--- NOTE | 2017-03-09 13:42 | Operative Note ---
Date of procedure: 03/09/17 Pre-op diagnosis: Pressure ulcer of the right lateral foot Post-op diagnosis: same Procedure: Diagnosis: Ulcer right lateral foot probably secondary to pressure with underlying peripheral arterial disease. Procedure: Excisional debridement of skin necrotic fat and fascia from the ulcer right foot. Surgeon Dr. Arroyo Anesthesia local Brief history: 66-year-old white male who has underlying peripheral arterial disease got a pressure ulcer on the right foot laterally that we have been treating with Santyl. The eschar has softened up dramatically and I think now I can easily debride part of this of the Santyl work a little better. Try to do this while he is in the room since it be simpler than trying to move and to the OR. Procedure. With patient in supine position and prepped and draped sterile fashion timeout completed approaches area the ulcer itself measuring 3 cm x 2.5 cm in size with dark thick eschar over the surface. I took the knife and I begin to shave that eschar off the surface here which he tolerated fairly well without any problems I debrided all that dark necrotic tissue then additional underlying fascial tissue and necrotic fatty tissue out taken some deeper tissue for culture. Little bit of bleeding that was controlled with pressure but otherwise he tolerated fairly well. Not completely clean but now I think the Santyl can work little bit better and allows do some debridement in the office without problems. I estimated blood loss was 5 cc Complications none Condition stable satisfactory. Anesthesia: local Surgeon / Physician: Chuckie Arroyo Estimated blood loss: minimal Specimens: other (Tissue for culture) Condition: stable Disposition: floor Results - Labs CBC & BMP: 03/09/17 06:42 03/09/17 06:42 Discharge Plan - Discharge Medications No Action Simvastatin 20 mg PO 1800 Cholecalciferol (Vitamin D3) [Vitamin D3] 1,000 unit PO DAILY Polyethylene Glycol Powder [Miralax] 17 gm PO DAILY #10 powder Ferrous Sulfate 324 mg PO DAILY HYDROcodone/ACETAMIN 7.5-325 [[place] 7.5-325] 1 tablet PO Q4H PRN #30 tablet PRN Reason: Pain Moderate (4-7) Skin Healing Oint (Aquaphor) [Aquaphor] 1 applic TOP PRN PRN #0 applic PRN Reason: Dry Skin Bisoprolol Fumarate 5 mg PO DAILY hydroCHLOROthiazide [Hydrochlorothiazide] 6.25 mg PO DAILY Gabapentin Cap/Tab [Neurontin Cap/Tab] 100 mg PO TID #90 capsule Nystatin Powder [Mycostatin Powder] 1 applic TOP BID #1 applic Tamsulosin [Flomax] 0.4 mg PO BEDTIME - Follow Up or Referral - Forms/Instructions
[2017-03-09] MEDS: DESITIN 4OZ/NYSTATIN 15 GRAM MIXTURE PASTE TOP SCH ×2 (14:06→21:17)
[2017-03-09] MEDS: COLLAGENASE OINT 30 GM TUBE TOP SCH (14:06)
--- NOTE | 2017-03-09 14:20 | Hospitalist Progress Note ---
Hospitalist: Subjective Interval history: No significant overnight events. No new complaints verbalized per nursing or patient. Patient is answering questions but answers are unreliable. No fever. Tolerating oral intake. He has not had a bowel movement yet and they are awaiting a fecal occult blood test at this time. Exam - Constitutional Vitals: Period Temp Pulse Resp BP Sys/Valenzuela Pulse Ox Last 24 Hr 97.3 F-99.1 F 63-83 16-18 124-160/55-79 95-98 Exam: Patient is a frail elderly -Swiss male lying in the hospital bed in no acute distress. He appears chronically ill-appearing Cardiovascular : regular rate and rhythm no murmurs Lungs : clear to auscultation bilaterally, nonlabored breathing noted Abdomen: soft, nontender, nondistended. Positive bowel sounds Extremities:warm. Right lateral foot ulcer with black eschar noted. No cyanosis. No edema. Status post left AKA. 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 Arroyo Current Visit: Yes -Blood cultures negative 5 days -On Trental and statin for PAD (2) Failure to thrive Status: Acute Assessment and plan: encouraging PO; supplements between meals; dietary consult. Current Visit: Yes (3) Moderate protein calorie malnutrition Status: Acute Assessment and plan: encouraging PO; supplements between meals; dietary consult. declines PEG tube at this time Current Visit: Yes (4) Hypertension, essential-fairly well controlled Status: Chronic Assessment and plan: Continue current treatment. If oral intake is not adequate, may need to consider holding the hydrochlorothiazide. 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 On gabapentin but currently being held. Stop IV fluids. No DVT prophylaxis ordered at this time. No mechanical DVT prophylaxis recommended due to PAD and amputation of the left leg. Quality Measures - VTE Contraindication to Pharmacological VTE Prophylaxis: High Risk of Bleeding Contraindication to Mechanical VTE Prophylaxis: Ischemic Vascular Disease
[2017-03-09] MEDS: SIMVASTATIN 20 MG TABLET PO SCH (17:28)
[2017-03-09] MEDS: TAMSULOSIN 0.4 MG CAPSULE PO SCH (21:17)
[2017-03-10] MEDS: PIPERACILLIN/TAZOBACTAM 3,375 MG in SODIUM CHLORIDE 0.9% 100 ML IV SCH ×2 (02:52→10:07)
--- NOTE | 2017-03-10 08:23 | Discharge Summary ---
Hospital Course - Hospital Course Hospital Course: Discharge summary: Discharge diagnoses: 1. Pressure ulcer lateral aspect of the right foot stage III 2. Underlying peripheral arterial disease not unreconstructable 3. CVA 4. Moderate malnutrition Procedure: Debridement of eschar in the room ulcer right foot Surgeon Dr. Arroyo Brief summary: 66-year-old -Vincentian male who we put in the hospital from the office because of ulcer on his right foot that looks somewhat infected at the time for which she had been seeking somebody to see but could not arrange [facility] especially with [facility]. Home health had been following it is not felt that she needed to see somebody so when they came to us we felt that the best thing to do was to get him in the hospital so we can get some care going and get this process under control. He had a ulcer on the fifth metatarsal head area laterally on that foot probably from lying on his side too much on that particular area. Had a thick eschar present little bit of swelling around it and erythematous changes. Start him on some IV antibiotics start him on some Santyl to the wound bed at this time. At this point we were able to do a lower arterial vascular study that indicated some poor circulation to the lower extremity. We ended up doing a CTA that did not show us anything that we could be reconstructed and there was a history that he had a previous stent to that side in the past. We were hoping for a high stenotic area that we might can improve the inflow to the foot but did not find anything at this point. He tolerated that well his kidney function remain good ulna especially on IV fluids. Patient has done well we brought dietary in and had occupational therapy look at his swallowing. Swallowing seem to be okay but his nutritional status was pretty low in fact that he over the last year had lost significant amount of weight. Discussed with the about the possibility of a PEG tube at this point she wanted to see if there is a way that she could improve his nutrition by just feeding before we proceeded to a PEG tube. She started feeding him and he started consuming a good bit of his diet especially if somebody is they are feeding him in coaxing him to go ahead and eat and finish his meals. Nutritionally he is done fairly well at this point so at this time will hold off on the PEG tube. While here with the Santyl applied to the eschar softened it up and I was able in the room to take a knife and just shaved that eschar away and debride a little bit of the necrotic tissue and around this area. Trying to be fairly conservative at this point time and so we will discontinue the Santyl to the base to try to clean it up and see if we can get some improvement of the wound bed without had to do any extensive surgery. Certainly I think if we attempted to amputate the toe are any part of this lower part of the foot we may see that wound not heal and there we may have to progress of the leg to a higher amputation like he has on the other side. At this point will try some conservative therapy with some wound care follow him up in the wound center in 3 weeks and can see if there is some way that we can improve the status of the wound at this time. 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 We will try to monitor this status over time and see exactly if we can improve his general wounds and care at this time. She is going to certainly make a major effort to try to do the care as much as she can and hopefully will get some help from the [facility]. - Time spent with patient Time with patient DS: Greater than 30 minutes Diagnosis - Discharge Diagnosis (1) Diabetic foot ulcer Status: Chronic (2) CVA (cerebral vascular accident) Status: Chronic (3) Malnutrition of moderate degree Status: Resolved Specialty Discharge - Follow Up or Referrals Follow up with: Chuckie Arroyo MD [Physician] - 2 Weeks (At the Wound healing center) - Speciality Discharge Instructions Surgery Instructions: 1. Maintain present wound care. 2. Call if there is a problem with getting help from the [facility]. 3. Continue to try to get him to consume as much food as he can possibly take especially at mealtimes try to improve his nutritional status. Discharge Plan - Discharge Data Disposition: Home Health Service Condition at Discharge: Stable Discharge Diet: advance to your usual diet Activity: other (Bedridden but he could be up in a chair if necessary but he would need a special pad to sit on) Hygiene: no restrictions, other (Bathe as best we can keep them clean) Weight Bearing at Discharge: non-weight bearing Driving: other (no) Contact your physician if you experience:: fever over 101, Redness or swelling, Nausea/Vomiting, Bleeding, pain uncontrolled by pain medications Wound / Dressing Care Instructions: Wound care to the right lower extremity daily. 1. Wash the foot and leg with Hibiclens. 2. Apply Aquaphor to the entire foot heel and leg. 3. Irrigate the ulcer on his foot with 10 cc of 0.25 % acetic acid solution. 4. Apply first Santyl and then a little hydrogel to the ulcer. 5. Cover with Adaptic. 6. Cover the wound with a Mepilex border gauze or a 4 x 4 fluff with little bit of tape if unable to get the Mepilex border gauze. 7. Heel pad to the heel. 8. Knee-high cotton sock or wrapped with an Aashish. 9. Continue to use the foam boot to protect the foot. Additional wound care sacrum and hip areas. After washing these areas apply Aquaphor to the sacrum and both hips and observe for any skin changes - Discharge Medications New Docusate Sodium Cap [Colace Cap] 100 mg PO BID #60 capsule guaiFENesin LIQUID [Robitussin] 10 ml PO Q4H PRN PRN Reason: Cough HYDROcodone/ACETAMIN 7.5-325 [[place] 7.5-325] 1 tablet PO Q4H PRN #20 tablet PRN Reason: Pain Moderate (4-7) Pentoxifylline [TRENtal] 400 mg PO TID #60 tablet Skin Healing Oint (Aquaphor) [Aquaphor] 1 applic TOP PRN #1 bottle Acetaminophen Tab [Tylenol Tab] 650 mg PO Q6H PRN tablet PRN Reason: Pain Mild (1-3) And/Or Fever Collagenase Oint [Santyl Oint] 1 applic TOP DAILY #1 applic Multivitamin (Centrum) [Centrum Tab] 1 tablet PO DAILY tablet Continue Simvastatin 20 mg PO 1800 Cholecalciferol (Vitamin D3) [Vitamin D3] 1,000 unit PO DAILY Polyethylene Glycol Powder [Miralax] 17 gm PO DAILY #10 powder Ferrous Sulfate 324 mg PO DAILY HYDROcodone/ACETAMIN 7.5-325 [[place] 7.5-325] 1 tablet PO Q4H PRN #30 tablet PRN Reason: Pain Moderate (4-7) Skin Healing Oint (Aquaphor) [Aquaphor] 1 applic TOP PRN PRN #0 applic PRN Reason: Dry Skin Bisoprolol Fumarate 5 mg PO DAILY hydroCHLOROthiazide [Hydrochlorothiazide] 6.25 mg PO DAILY Gabapentin Cap/Tab [Neurontin Cap/Tab] 100 mg PO TID #90 capsule Nystatin Powder [Mycostatin Powder] 1 applic TOP BID #1 applic Tamsulosin [Flomax] 0.4 mg PO BEDTIME - Follow Up or Referral - Forms/Instructions Exam - Constitutional Vitals: Period Temp Pulse Resp BP Sys/Valenzuela Pulse Ox Last 24 Hr 97.2 F-98.6 F 62-73 16-20 114-149/53-72 95-100 General appearance: no acute distress - Head Head exam: Present: normal inspection - ENT ENT exam: Present: normal exam - Neck Neck exam: Present: normal inspection - Respiratory Respiratory exam: Present: clear to auscultation bilaterally, rales - Cardiovascular Cardiovascular exam: Present: regular rate and rhythm - GI/Abdominal GI/Abdominal exam: Present: hypoactive bowel sounds, soft. Absent: tenderness - Extremities Exam Extremities exam: Present: other (The right lower extremity has no edema on it at this time. The wound is fairly clean with still a little sloughy material in the wound bed but no progression of skin loss at this time.) - Back Exam Back exam: Present: normal inspection - Neurological Exam Neurological exam: Present: alert, oriented X3, CN II-XII intact - Psychiatric Psychiatric exam: Present: flat affect - Skin Skin exam: Present: normal color, warm, dry Discharge Results Procedures and tests throughout hospitalization: Pending Orders 03/09/17 07:43 Occult Blood, Stool Routine 03/09/17 13:56 Wound Culture Routine Labs on day of discharge: Labs from last 24 hours 03/10/17 03/09/17 03/09/17 07:19 15:44 06:42 Anemia Panel Interp ESR W[place]gren Hemoglobin A1 97.9 Hemoglobin A2 2.1 Hgb ELP Interp POC Glucose 91 165 H Vitamin B12 841 Folate 20.7 03/09/17 06:42 Anemia Panel Interp ESR [place] 112 H Hemoglobin A1 Hemoglobin A2 Hgb ELP Interp POC Glucose Vitamin B12 Folate DS: Provider Date of admission: 03/01/17 22:07 Primary care physician: . No PCP Attending physician on admission: Chuckie Arroyo MD Consults: 03/01/17 23:03 Consult to Physician [CONS] Routine Comment: Management of diabetes Consulting Provider: Pedro Murcia Consulting Provider Notified: Yes When should Consulting Provider be notified: Now Person Notified: called about consult Date Notified: 03/02/17 Time Notified: 08:07 03/01/17 23:26 Consult to Dietitian [CONS] Routine Reason for Dietitian: Dietary Consult Consult Comment: weight loss aand take ensure plus twice a day and ensure juice daily 03/04/17 08:56 Consult to Physical Therapy [CONS] Routine Reason for Physical Therapy: Evaluate and Treat Start Therapy: Today Consult Comment: Work on range of motion right knee to try to get contracture out 03/05/17 11:57 Consult to Case Mgmt/Social Srvs [CONS] Routine Reason for Case Mgmt/Social Srvs: Discharge Planning Discharging clinician: Chuckie Arroyo MD Expected date of discharge: 03/10/17
[2017-03-10] MEDS: INSULIN LISPRO 100 UNIT/ML SUBCUT SCH ×2 (09:41→18:23)
[2017-03-10] MEDS: hydroCHLOROthiazide 25 MG TABLET PO SCH (09:57)
[2017-03-10] MEDS: PANTOPRAZOLE 40 MG TABLET PO SCH (09:57)
[2017-03-10] MEDS: GABAPENTIN 100 MG CAPSULE PO SCH ×2 (09:58→15:25)
[2017-03-10] MEDS: FERROUS SULFATE 325 MG TABLET PO SCH (10:00)
[2017-03-10] MEDS: PENTOXIFYLLINE 400 MG TABLET PO SCH ×2 (10:00→15:30)
[2017-03-10] MEDS: CHOLECALCIFEROL 1,000 UNIT TABLET PO SCH (10:00)
[2017-03-10] MEDS: MULTIVITAMIN (CENTRUM) TABLET PO SCH (10:00)
[2017-03-10] MEDS: DOCUSATE SODIUM 100 MG CAPSULE PO SCH (10:03)
[2017-03-10] MEDS: POLYETHYLENE GLYCOL POWDER 17 GM PACK PO SCH (10:04)
[2017-03-10] MEDS: NYSTATIN POWDER 15 GM BOTTLE TOP SCH (10:04)
--- NOTE | 2017-03-10 12:48 | Hospitalist Progress Note ---
Hospitalist: Subjective Interval history: Pt seen this am around 11AM. Pt did have BM overnight after enema. No fever. No new complaints. states he is eating. No new issues verbalized. Exam - Constitutional Vitals: Period Temp Pulse Resp BP Sys/Valenzuela Pulse Ox Last 24 Hr 97.2 F-98.6 F 62-74 16-20 114-149/53-72 98-100 Exam: Patient is a frail elderly -Lao male lying in the hospital bed in no acute distress. He appears chronically ill-appearing Cardiovascular : regular rate and rhythm no murmurs Lungs : clear to auscultation bilaterally, nonlabored breathing noted Abdomen: soft, nontender, nondistended. Positive bowel sounds Extremities:warm. Right lateral foot ulcer has CODY bandage in place up the leg. No cyanosis. No edema. Status post left AKA. 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 Arroyo Current Visit: Yes -Blood cultures negative 5 days -On Trental and statin for PAD (2) Failure to thrive Status: Acute Assessment and plan: encouraging PO; supplements between meals; dietary consult. Current Visit: Yes (3) Moderate protein calorie malnutrition Status: Acute Assessment and plan: encouraging PO; supplements between meals; dietary consult. declines PEG tube at this time Current Visit: Yes (4) Hypertension, essential-fairly well controlled Status: Chronic Assessment and plan: Continue current treatment. If oral intake is not adequate, may need to consider holding the hydrochlorothiazide. 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 On gabapentin but currently being held. (7) Constipation - improved s/p enema No DVT prophylaxis ordered at this time. No mechanical DVT prophylaxis recommended due to PAD and amputation of the left leg. ok to dc home from my standpoint. D/W pt, , nursing staff and all questions answered. Quality Measures - VTE Contraindication to Pharmacological VTE Prophylaxis: High Risk of Bleeding Contraindication to Mechanical VTE Prophylaxis: Ischemic Vascular Disease Specialty Discharge - Follow Up or Referrals Follow up with: Chuckie Arroyo MD [Physician] - 03/23/17 8:00 am (At the Wound healing center)
[2017-03-10] MEDS: COLLAGENASE OINT 30 GM TUBE TOP SCH (13:50)
[2017-03-10] MEDS: BISOPROLOL 5 MG TABLET PO SCH (14:25)
[2017-03-10] MEDS: DESITIN 4OZ/NYSTATIN 15 GRAM MIXTURE PASTE TOP SCH (15:24)
[2017-03-10 15:59] VITALS: BP 130/59
--- NOTE | 2017-03-15 16:39 | Physician Query Form ---
CLICK EDIT DOCUMENT TO SELECT QUERY ANSWER --> OK --> SIGN Yesi Neal RN Clinical Full Time Babysitter W) [phone] (f) [phone] [email or web address] PROVIDERS: Make your selection(s) from the choices in EACH section by typing an "x" and enter comments in the comment section. Please use your independent medical judgment in providing your response. This request does not imply that any particular answer is desired or expected. CLINICAL INDICATORS: (Providers should not edit this section) Based on conflicting documentation of "Acute Diabetic infection of right foot" "Pressure ulcer of the right foot" "Ulcer right lateral foot probably secondary to pressure with underlying peripheral arterial disease." Treated with excisional debridement. Based on the above, could you clarify the appropriate diagnosis, if significant , that supports the above abnormalities and additional evaluation, monitoring, and/or treatment rendered: ( x) Diabetic Foot Ulcer ( x) Decubitus Foot Ulcer ( ) Other, please specify: ( ) Clinically unable to determine IF IT IS A DECUBITUS ULCER PLEASE STAGE THE ULCER: ( )Stage 1 ( )Stage 2 ( x)Stage 3 ( )Stage 4 ( ) Unstageable. COMMENTS:Pt has diabetes with peripheral vascular disease AND decubitus/ pressure ulceration of the right lateral foot. Ulcer was unstageable on admission and Stage III after debridement by Dr Arroyo. PLEASE ALSO DOCUMENT RESPONSE IN PROGRESS NOTES AND/OR DISCHARGE SUMMARY Use of terms such as suspected, likely, or probable (associated with a specific diagnosis that is being evaluated, monitored, or treated as if it exists) are acceptable and can be restated in the discharge summary if not ruled out. MTDD
== END 2017-03-10 17:30 | disposition home health service (06) | DRG 264 ==
LOC: N.ED 17:27 → N.EDINP 22:07 → N.3E 22:36
PROVIDERS: ADMIT Specialist; ATTEND Specialist

== ENCOUNTER 2017-06-16 05:24 | Inpatient (IN) ==
[2017-06-16] MEDS ORDERED: ceFAZolin 2,000 MG in PREMIX 1 EACH IV ONE (06:00)
[2017-06-16 06:43] LABS: Basophils % 0.5 % (0.0-0.8); Eosinophils # 0.2 10*3/uL (0.0-0.87); Eosinophils % 5.3 % (0.00-10.9); Hematocrit 32.9 VOL% (42.0-52.0); Hemoglobin 10.5 GM/DL (14.0-18.0); Immature Granulocytes % 0.2 %; Immature Granulocytes Absolute 0.01 #; Lymphocytes # 1.6 10*3/uL (1.4-4.0); Lymphocytes % 37.6 % (21.2-54.2); Mean Corpuscular HGB Conc 31.9 GM/DL (32-36); Mean Corpuscular Hemoglobin 31 PG (27-34); Mean Corpuscular Volume 95.6 FL (87-102); Mean Platelet Volume 9.1 FL (9.6-12.0); Monocytes # 0.3 10*3/uL (0.11-0.8); Monocytes % 7.9 % (1.7-12.7); Neutrophils # 2.1 10*3/uL (1.4-7.4); Neutrophils % 48.5 % (38.7-73.9); Platelet Count 182 T/CUMM (130-400); Red Blood Count 3.44 MC/CUMM (3.8-5.5); Red Cell Distribution Width 11.9 % (9.3-17.3); White Blood Count 4.3 T/CUMM (4-12)
[2017-06-16] MEDS ORDERED: BUPIVACAINE 0.25% 50 ML VIAL ONE (06:49)
[2017-06-16 06:51] LABS: PT Patient Result 10.6 SECS; Partial Thromboplastin Time 24.3 SECS (0-40)
[2017-06-16 07:18] LABS: Alanine Aminotransferase 34 U/L (16-61); Albumin 3.2 G/DL (3.4-5.0); Alkaline Phosphatase 123 U/L (45-117); Aspartate Amino Transferase 23 U/L (0-37); Bilirubin,Total < 0.39 MG/DL (0.2-1.0); Blood Urea Nitrogen 21 MG/DL (7-18); Calcium 9.6 MG/DL (8.5-10.1); Glucose 101 MG/DL (74-106); Potassium 3.9 MMOL/L (3.5-5.1); Sodium 143 MMOL/L (136-145)
[2017-06-16] MEDS ORDERED: BUPIVACAINE 0.5% 50 ML VIAL ONE (07:26)
[2017-06-16] MEDS ORDERED: LACTATED RINGERS 1,000 ML IV SCH (07:30)
[2017-06-16] MEDS ORDERED: HYDROmorphone 2 MG/1 ML VIAL IV PRN (09:07)
[2017-06-16] MEDS ORDERED: ACETAMINOPHEN 325 MG TABLET PO PRN (09:07)
[2017-06-16] MEDS ORDERED: ONDANSETRON 4 MG/2 ML VIAL IV PRN (09:07)
[2017-06-16] MEDS ORDERED: KETAMINE 500 MG/10 ML VIAL ONE (09:10)
[2017-06-16] MEDS ORDERED: PROPOFOL 200 MG/20 ML VIAL IV ONE (09:10)
[2017-06-16] MEDS ORDERED: fentaNYL 100 MCG/2 ML VIAL ONE (09:11)
[2017-06-16] MEDS ORDERED: MIDAZOLAM 2 MG/2 ML VIAL ONE (09:11)
[2017-06-16] MEDS ORDERED: SKIN HEALING OINT (AQUAPHOR) 50 GM TUBE TOP PRN (09:12)
[2017-06-16] MEDS ORDERED: LACTULOSE 20 GM/30 ML UDCUP PO PRN (09:12)
[2017-06-16 13:51] LABS: Hematocrit 30.6 VOL% (42.0-52.0); Hemoglobin 9.7 GM/DL (14.0-18.0)
[2017-06-16] MEDS: GABAPENTIN 100 MG CAPSULE PO SCH ×2 (16:13→21:49)
[2017-06-16] MEDS: SODIUM CHLORIDE 0.45% 1,000 ML IV SCH ×2 (16:13→22:53)
[2017-06-16] MEDS: PENTOXIFYLLINE 400 MG TABLET PO SCH ×2 (16:13→21:25)
[2017-06-16] MEDS: SIMVASTATIN 20 MG TABLET PO SCH (17:39)
[2017-06-16] MEDS: ceFAZolin 2,000 MG in PREMIX 1 EACH IV SCH ×2 (17:39→22:39)
[2017-06-16] MEDS: DOCUSATE SODIUM 100 MG CAPSULE PO SCH (21:25)
[2017-06-16] MEDS: oxyCODONE/ACETAMINOPHEN 5-325 MG TABLET PO PRN (21:25)
[2017-06-16] MEDS: traZODone 50 MG TABLET PO SCH ×2 (21:25→21:33)
[2017-06-16] MEDS: NYSTATIN POWDER 15 GM BOTTLE TOP SCH (21:25)
[2017-06-16] MEDS: guaiFENesin 200 MG/10 ML UDCUP PO PRN (21:49)
[2017-06-17 05:10] LABS: Basophils % 0.3 % (0.0-0.8); Eosinophils # 0.2 10*3/uL (0.0-0.87); Eosinophils % 2.5 % (0.00-10.9); Hematocrit 25.9 VOL% (42.0-52.0); Hemoglobin 8.7 GM/DL (14.0-18.0); Immature Granulocytes % 0.3 %; Immature Granulocytes Absolute 0.02 #; Lymphocytes # 2.1 10*3/uL (1.4-4.0); Lymphocytes % 27.2 % (21.2-54.2); Mean Corpuscular HGB Conc 33.6 GM/DL (32-36); Mean Corpuscular Hemoglobin 31 PG (27-34); Mean Corpuscular Volume 92.5 FL (87-102); Mean Platelet Volume 9.9 FL (9.6-12.0); Monocytes # 0.6 10*3/uL (0.11-0.8); Neutrophils # 4.9 10*3/uL (1.4-7.4); Neutrophils % 62.7 % (38.7-73.9); Platelet Count 200 T/CUMM (130-400); Red Cell Distribution Width 11.8 % (9.3-17.3); White Blood Count 7.9 T/CUMM (4-12)
[2017-06-17 05:44] LABS: Calcium 8.8 MG/DL (8.5-10.1); Osmolality,Calculated 277.5 MOS/KG (273-304); Potassium 3.7 MMOL/L (3.5-5.1)
[2017-06-17] MEDS: SODIUM CHLORIDE 0.45% 1,000 ML IV SCH ×2 (06:48→13:15)
[2017-06-17] MEDS: DOCUSATE SODIUM 100 MG CAPSULE PO SCH ×2 (10:17→20:42)
[2017-06-17] MEDS: MULTIVITAMIN (CENTRUM) TABLET PO SCH (10:17)
[2017-06-17] MEDS: POLYETHYLENE GLYCOL POWDER 17 GM PACK PO SCH (10:18)
[2017-06-17] MEDS: FERROUS SULFATE 325 MG TABLET PO SCH (10:18)
[2017-06-17] MEDS: hydroCHLOROthiazide 25 MG TABLET PO SCH (10:18)
[2017-06-17] MEDS: TAMSULOSIN 0.4 MG CAPSULE PO SCH (10:18)
[2017-06-17] MEDS: GABAPENTIN 100 MG CAPSULE PO SCH ×3 (10:18→20:42)
[2017-06-17] MEDS: PANTOPRAZOLE 40 MG TABLET PO SCH (10:19)
[2017-06-17] MEDS: PENTOXIFYLLINE 400 MG TABLET PO SCH ×3 (10:19→20:42)
[2017-06-17] MEDS: CHOLECALCIFEROL 1,000 UNIT TABLET PO SCH (10:19)
[2017-06-17] MEDS: BISOPROLOL 5 MG TABLET PO SCH (10:19)
[2017-06-17] MEDS: ENOXAPARIN 30 MG/0.3 ML SYRINGE SUBCUT SCH (10:25)
[2017-06-17] MEDS: NYSTATIN POWDER 15 GM BOTTLE TOP SCH ×2 (10:26→20:48)
[2017-06-17] MEDS ORDERED: SODIUM CHLORIDE 0.9% 250 ML IV PRN (12:17)
[2017-06-17] MEDS: SIMVASTATIN 20 MG TABLET PO SCH (18:25)
[2017-06-17] MEDS: traZODone 50 MG TABLET PO SCH (20:47)
[2017-06-17 22:30] LABS: Hematocrit 33.9 VOL% (42.0-52.0)
[2017-06-17 22:32] LABS: Hemoglobin 11.7 GM/DL (14.0-18.0)
[2017-06-18] MEDS: SODIUM CHLORIDE 0.45% 1,000 ML IV SCH ×3 (01:10→16:17)
[2017-06-18 05:35] LABS: Basophils % 0.3 % (0.0-0.8); Eosinophils # 0.3 10*3/uL (0.0-0.87); Eosinophils % 3.4 % (0.00-10.9); Hemoglobin 11.6 GM/DL (14.0-18.0); Immature Granulocytes % 0.3 %; Immature Granulocytes Absolute 0.03 #; Lymphocytes # 1.7 10*3/uL (1.4-4.0); Lymphocytes % 18.9 % (21.2-54.2); Mean Corpuscular HGB Conc 34.1 GM/DL (32-36); Mean Corpuscular Hemoglobin 30 PG (27-34); Mean Corpuscular Volume 89.2 FL (87-102); Mean Platelet Volume 9.7 FL (9.6-12.0); Monocytes # 0.6 10*3/uL (0.11-0.8); Monocytes % 7.2 % (1.7-12.7); Neutrophils # 6.2 10*3/uL (1.4-7.4); Neutrophils % 69.9 % (38.7-73.9); Platelet Count 159 T/CUMM (130-400); Red Blood Count 3.81 MC/CUMM (3.8-5.5); Red Cell Distribution Width 12.2 % (9.3-17.3); White Blood Count 8.9 T/CUMM (4-12)
[2017-06-18 05:55] LABS: Calcium 8.6 MG/DL (8.5-10.1); Magnesium 2.1 MG/DL (1.8-2.4); Osmolality,Calculated 278.3 MOS/KG (273-304); Potassium 3.8 MMOL/L (3.5-5.1)
[2017-06-18] MEDS: hydroCHLOROthiazide 25 MG TABLET PO SCH (08:41)
[2017-06-18] MEDS: ENOXAPARIN 30 MG/0.3 ML SYRINGE SUBCUT SCH (08:41)
[2017-06-18] MEDS: BISOPROLOL 5 MG TABLET PO SCH (08:41)
[2017-06-18] MEDS: FERROUS SULFATE 325 MG TABLET PO SCH (08:41)
[2017-06-18] MEDS: PENTOXIFYLLINE 400 MG TABLET PO SCH ×3 (08:42→22:46)
[2017-06-18] MEDS: CHOLECALCIFEROL 1,000 UNIT TABLET PO SCH (08:42)
[2017-06-18] MEDS: TAMSULOSIN 0.4 MG CAPSULE PO SCH (08:42)
[2017-06-18] MEDS: POLYETHYLENE GLYCOL POWDER 17 GM PACK PO SCH (08:42)
[2017-06-18] MEDS: DOCUSATE SODIUM 100 MG CAPSULE PO SCH ×2 (08:42→22:46)
[2017-06-18] MEDS: MULTIVITAMIN (CENTRUM) TABLET PO SCH (08:42)
[2017-06-18] MEDS: PANTOPRAZOLE 40 MG TABLET PO SCH (08:42)
[2017-06-18] MEDS: GABAPENTIN 100 MG CAPSULE PO SCH ×3 (08:42→22:46)
[2017-06-18] MEDS: NYSTATIN POWDER 15 GM BOTTLE TOP SCH ×2 (08:42→22:46)
[2017-06-18] MEDS ORDERED: AMPICILLIN/SULBACTAM 1,500 MG VIAL IM SCH (13:00)
[2017-06-18] MEDS: AMPICILLIN/SULBACTAM 1,500 MG in SODIUM CHLORIDE 0.9% 50 ML IV SCH (13:45)
[2017-06-18] MEDS: SIMVASTATIN 20 MG TABLET PO SCH (19:14)
[2017-06-18] MEDS: traZODone 50 MG TABLET PO SCH (21:00)
[2017-06-18] MEDS: guaiFENesin 200 MG/10 ML UDCUP PO PRN (23:02)
[2017-06-19] MEDS: AMPICILLIN/SULBACTAM 1,500 MG in SODIUM CHLORIDE 0.9% 50 ML IV SCH ×2 (01:05→14:38)
[2017-06-19] MEDS: SODIUM CHLORIDE 0.45% 1,000 ML IV SCH ×2 (04:15→18:09)
[2017-06-19] MEDS: hydroCHLOROthiazide 25 MG TABLET PO SCH (08:31)
[2017-06-19] MEDS: ENOXAPARIN 30 MG/0.3 ML SYRINGE SUBCUT SCH (08:31)
[2017-06-19] MEDS: CHOLECALCIFEROL 1,000 UNIT TABLET PO SCH (08:31)
[2017-06-19] MEDS: MULTIVITAMIN (CENTRUM) TABLET PO SCH (08:31)
[2017-06-19] MEDS: FERROUS SULFATE 325 MG TABLET PO SCH (08:31)
[2017-06-19] MEDS: PENTOXIFYLLINE 400 MG TABLET PO SCH ×3 (08:32→21:25)
[2017-06-19] MEDS: NYSTATIN POWDER 15 GM BOTTLE TOP SCH ×2 (08:32→21:25)
[2017-06-19] MEDS: DOCUSATE SODIUM 100 MG CAPSULE PO SCH ×2 (08:32→21:25)
[2017-06-19] MEDS: PANTOPRAZOLE 40 MG TABLET PO SCH (08:32)
[2017-06-19] MEDS: TAMSULOSIN 0.4 MG CAPSULE PO SCH (08:32)
[2017-06-19] MEDS: GABAPENTIN 100 MG CAPSULE PO SCH ×3 (08:32→21:24)
[2017-06-19] MEDS: POLYETHYLENE GLYCOL POWDER 17 GM PACK PO SCH (08:32)
[2017-06-19] MEDS: BISOPROLOL 5 MG TABLET PO SCH (08:32)
[2017-06-19] MEDS: guaiFENesin 200 MG/10 ML UDCUP PO PRN ×2 (08:50→21:28)
[2017-06-19] MEDS: oxyCODONE/ACETAMINOPHEN 5-325 MG TABLET PO PRN (14:41)
[2017-06-19] MEDS: SIMVASTATIN 20 MG TABLET PO SCH (18:24)
[2017-06-19] MEDS: traZODone 50 MG TABLET PO SCH (21:24)
[2017-06-20] MEDS: AMPICILLIN/SULBACTAM 1,500 MG in SODIUM CHLORIDE 0.9% 50 ML IV SCH ×2 (04:17→14:07)
[2017-06-20] MEDS: SODIUM CHLORIDE 0.45% 1,000 ML IV SCH (07:50)
[2017-06-20] MEDS: guaiFENesin 200 MG/10 ML UDCUP PO PRN (08:39)
[2017-06-20] MEDS: MULTIVITAMIN (CENTRUM) TABLET PO SCH (08:39)
[2017-06-20] MEDS: FERROUS SULFATE 325 MG TABLET PO SCH (08:39)
[2017-06-20] MEDS: DOCUSATE SODIUM 100 MG CAPSULE PO SCH ×2 (08:39→20:16)
[2017-06-20] MEDS: ENOXAPARIN 30 MG/0.3 ML SYRINGE SUBCUT SCH (08:39)
[2017-06-20] MEDS: hydroCHLOROthiazide 25 MG TABLET PO SCH (08:39)
[2017-06-20] MEDS: PENTOXIFYLLINE 400 MG TABLET PO SCH ×3 (08:39→20:16)
[2017-06-20] MEDS: CHOLECALCIFEROL 1,000 UNIT TABLET PO SCH (08:39)
[2017-06-20] MEDS: TAMSULOSIN 0.4 MG CAPSULE PO SCH (08:39)
[2017-06-20] MEDS: BISOPROLOL 5 MG TABLET PO SCH (08:39)
[2017-06-20] MEDS: PANTOPRAZOLE 40 MG TABLET PO SCH (08:39)
[2017-06-20] MEDS: POLYETHYLENE GLYCOL POWDER 17 GM PACK PO SCH (08:40)
[2017-06-20] MEDS: GABAPENTIN 100 MG CAPSULE PO SCH ×3 (08:40→20:16)
[2017-06-20] MEDS: NYSTATIN POWDER 15 GM BOTTLE TOP SCH ×2 (08:40→20:16)
[2017-06-20] MEDS: BACITRACIN OINT 0.9 GM PACK TOP SCH (11:39)
[2017-06-20] MEDS: traZODone 50 MG TABLET PO SCH (20:16)
[2017-06-20] MEDS ORDERED: SIMVASTATIN 20 MG TABLET PO SCH (21:00)
[2017-06-21] MEDS: AMPICILLIN/SULBACTAM 1,500 MG in SODIUM CHLORIDE 0.9% 50 ML IV SCH ×2 (01:19→16:58)
[2017-06-21] MEDS: SODIUM CHLORIDE 0.45% 1,000 ML IV SCH (01:24)
[2017-06-21 06:57] LABS: Basophils % 0.4 % (0.0-0.8); Eosinophils # 0.4 10*3/uL (0.0-0.87); Eosinophils % 4.8 % (0.00-10.9); Hematocrit 32.9 VOL% (42.0-52.0); Hemoglobin 11.2 GM/DL (14.0-18.0); Immature Granulocytes % 0.3 %; Immature Granulocytes Absolute 0.02 #; Lymphocytes # 1.4 10*3/uL (1.4-4.0); Lymphocytes % 19.5 % (21.2-54.2); Mean Corpuscular Hemoglobin 31 PG (27-34); Mean Corpuscular Volume 90.9 FL (87-102); Mean Platelet Volume 9.8 FL (9.6-12.0); Monocytes # 0.6 10*3/uL (0.11-0.8); Monocytes % 8.2 % (1.7-12.7); Neutrophils # 4.9 10*3/uL (1.4-7.4); Neutrophils % 66.8 % (38.7-73.9); Platelet Count 170 T/CUMM (130-400); Red Blood Count 3.62 MC/CUMM (3.8-5.5); Red Cell Distribution Width 12.1 % (9.3-17.3); White Blood Count 7.3 T/CUMM (4-12)
[2017-06-21 07:22] LABS: Calcium 8.5 MG/DL (8.5-10.1); Magnesium 1.9 MG/DL (1.8-2.4); Osmolality,Calculated 274.5 MOS/KG (273-304)
[2017-06-21] MEDS: BISOPROLOL 5 MG TABLET PO SCH (12:24)
[2017-06-21] MEDS: FERROUS SULFATE 325 MG TABLET PO SCH (12:24)
[2017-06-21] MEDS: PANTOPRAZOLE 40 MG TABLET PO SCH (12:25)
[2017-06-21] MEDS: CHOLECALCIFEROL 1,000 UNIT TABLET PO SCH (12:25)
[2017-06-21] MEDS: GABAPENTIN 100 MG CAPSULE PO SCH ×2 (12:26→16:53)
[2017-06-21] MEDS: PENTOXIFYLLINE 400 MG TABLET PO SCH ×2 (12:28→16:53)
[2017-06-21] MEDS: MULTIVITAMIN (CENTRUM) TABLET PO SCH (12:29)
[2017-06-21] MEDS: DOCUSATE SODIUM 100 MG CAPSULE PO SCH (12:32)
[2017-06-21] MEDS: hydroCHLOROthiazide 25 MG TABLET PO SCH (12:32)
[2017-06-21] MEDS: TAMSULOSIN 0.4 MG CAPSULE PO SCH (12:33)
[2017-06-21] MEDS: POLYETHYLENE GLYCOL POWDER 17 GM PACK PO SCH (12:33)
[2017-06-21] MEDS: ENOXAPARIN 30 MG/0.3 ML SYRINGE SUBCUT SCH (12:34)
[2017-06-21] MEDS ORDERED: DESITIN 4OZ/NYSTATIN 15 GRAM MIXTURE PASTE TOP SCH (13:30)
[2017-06-21] MEDS ORDERED: AMOXICILLIN/CLAV 500 MG TABLET PO SCH (15:00)
[2017-06-21] MEDS: BACITRACIN OINT 0.9 GM PACK TOP SCH (16:30)
[2017-06-21 16:45] VITALS: BP 142/70
[2017-06-21] MEDS: NYSTATIN POWDER 15 GM BOTTLE TOP SCH (16:52)
== END 2017-06-21 17:25 | disposition home health service (06) | DRG 239 ==
LOC: N.OR 05:24 → N.SDSINP 05:35 → N.TELES 09:01 → N.3E 06-20 15:49
PROVIDERS: ADMIT Specialist; ATTEND Specialist

== ENCOUNTER 2017-11-08 06:03 | Inpatient (IN) ==
[2017-11-08 06:55] LABS: Basophils % 0.3 % (0.0-0.8); Eosinophils # 0.1 10*3/uL (0.0-0.87); Eosinophils % 0.8 % (0.00-10.9); Hematocrit 29.8 VOL% (42.0-52.0); Hemoglobin 9.4 GM/DL (14.0-18.0); Immature Granulocytes % 0.3 %; Immature Granulocytes Absolute 0.02 #; Lymphocytes # 1.6 10*3/uL (1.4-4.0); Lymphocytes % 26.5 % (21.2-54.2); Mean Corpuscular HGB Conc 31.5 GM/DL (32-36); Mean Corpuscular Hemoglobin 28 PG (27-34); Mean Corpuscular Volume 89.8 FL (87-102); Mean Platelet Volume 8.8 FL (9.6-12.0); Monocytes # 0.3 10*3/uL (0.11-0.8); Monocytes % 5.5 % (1.7-12.7); Neutrophils % 66.6 % (38.7-73.9); Platelet Count 316 T/CUMM (130-400); Red Blood Count 3.32 MC/CUMM (3.8-5.5); Red Cell Distribution Width 13.9 % (9.3-17.3)
[2017-11-08 07:05] LABS: INR 1.1; PT Patient Result 11.2 SECS; Partial Thromboplastin Time 26.1 SECS (0-40)
[2017-11-08 07:15] LABS: Alanine Aminotransferase 97 U/L (16-61); Albumin 2.2 G/DL (3.4-5.0); Alkaline Phosphatase 188 U/L (45-117); Aspartate Amino Transferase 65 U/L (0-37); Bilirubin,Total < 0.39 MG/DL (0.2-1.0); Blood Urea Nitrogen 21 MG/DL (7-18); Glucose 117 MG/DL (74-106); Osmolality,Calculated 284.3 MOS/KG (273-304); Potassium 3.5 MMOL/L (3.5-5.1); Sodium 141 MMOL/L (136-145); Total Protein 6.7 G/DL (6.4-8.3)
[2017-11-08] MEDS ORDERED: LACTATED RINGERS 1,000 ML IV SCH (07:15)
[2017-11-08] MEDS ORDERED: ACETAMINOPHEN 325 MG TABLET PO PRN (09:39)
[2017-11-08] MEDS ORDERED: HYDROmorphone 2 MG/1 ML VIAL IV PRN (09:39)
[2017-11-08] MEDS ORDERED: ONDANSETRON 4 MG/2 ML VIAL IV PRN (09:39)
[2017-11-08] MEDS ORDERED: LACTULOSE 20 GM/30 ML UDCUP PO PRN (09:48)
[2017-11-08] MEDS ORDERED: LANOLIN 50% CREAM 0.3 OZ TUBE TOP PRN (09:48)
[2017-11-08] MEDS ORDERED: SEVOFLURANE 1 UNIT/15 MINUTE INH ONE (09:54)
[2017-11-08] MEDS ORDERED: fentaNYL 100 MCG/2 ML VIAL ONE (09:54)
[2017-11-08] MEDS ORDERED: ONDANSETRON 4 MG/2 ML VIAL ONE (09:54)
[2017-11-08] MEDS ORDERED: PHENYLEPHRINE 10 MG/1 ML VIAL IV ONE (09:55)
[2017-11-08] MEDS ORDERED: KETOROLAC 30 MG/1 ML VIAL ONE (09:55)
[2017-11-08] MEDS ORDERED: LACTATED RINGERS 1,000 ML IV ONE (09:55)
[2017-11-08] MEDS ORDERED: ETOMIDATE 40 MG/20 ML VIAL IV ONE (09:55)
[2017-11-08] MEDS: DEXTROSE 5% NACL 0.45% 1,000 ML IV SCH ×2 (10:44→23:28)
[2017-11-08 10:57] LABS: Apearance,Urine CLEAR (Clear); Bacteria,Urine Occasional /HPF (Few); Bilirubin,Urine Negative (Negative); Blood, Urine Negative (Negative); Glucose,Urine (UA) Negative (Negative); Ketones,Urine Negative (Negative); Mucus,Urine Occasional /LPF (Occasional); Nitrite,Urine Negative (Negative); Protein,Urine 30 MG/DL; RBC,Urine 2 /HPF (0-4); Urine Color Yellow (Yellow); Urine Specific Gravity 1.023 (1.001-1.035); Urine Urobilinogen < 2.0 EU/DL (0.2-1.0); WBC,Urine 2 /HPF (0-6)
[2017-11-08 12:26] LABS: Hematocrit 30.8 VOL% (42.0-52.0); Hemoglobin 9.6 GM/DL (14.0-18.0)
[2017-11-08] MEDS: GABAPENTIN 100 MG CAPSULE PO SCH ×2 (15:39→23:12)
[2017-11-08] MEDS: ceFAZolin 2,000 MG in PREMIX 1 EACH IV SCH (15:39)
[2017-11-08] MEDS: FERROUS SULFATE 325 MG TABLET PO SCH ×3 (15:39→23:25)
[2017-11-08 16:48] LABS: Hematocrit 28.4 VOL% (42.0-52.0); Hemoglobin 8.7 GM/DL (14.0-18.0)
[2017-11-08] MEDS: TAMSULOSIN 0.4 MG CAPSULE PO SCH (18:31)
[2017-11-08] MEDS: SIMVASTATIN 40 MG TABLET PO SCH (18:31)
[2017-11-08] MEDS: DOCUSATE SODIUM 100 MG CAPSULE PO SCH (23:12)
[2017-11-09] MEDS: ceFAZolin 2,000 MG in PREMIX 1 EACH IV SCH ×4 (00:40→23:38)
[2017-11-09 05:31] LABS: Basophils % 0.2 % (0.0-0.8); Eosinophils % 0.5 % (0.00-10.9); Hemoglobin 8.2 GM/DL (14.0-18.0); Immature Granulocytes % 0.3 %; Immature Granulocytes Absolute 0.03 #; Lymphocytes # 1.1 10*3/uL (1.4-4.0); Lymphocytes % 12.4 % (21.2-54.2); Mean Corpuscular HGB Conc 31.5 GM/DL (32-36); Mean Corpuscular Hemoglobin 28 PG (27-34); Mean Corpuscular Volume 89.7 FL (87-102); Mean Platelet Volume 9.4 FL (9.6-12.0); Monocytes # 0.6 10*3/uL (0.11-0.8); Monocytes % 6.8 % (1.7-12.7); Neutrophils # 6.9 10*3/uL (1.4-7.4); Neutrophils % 79.8 % (38.7-73.9); Platelet Count 272 T/CUMM (130-400); Red Cell Distribution Width 13.7 % (9.3-17.3); White Blood Count 8.7 T/CUMM (4-12)
[2017-11-09 06:06] LABS: Calcium 8.3 MG/DL (8.5-10.1); Osmolality,Calculated 278.5 MOS/KG (273-304); Potassium 3.6 MMOL/L (3.5-5.1)
[2017-11-09] MEDS ORDERED: GLUCAGON 1 MG VIAL IM PRN (07:56)
[2017-11-09] MEDS ORDERED: DEXTROSE 50% 25 GM/50 ML VIAL IV PRN (07:56)
[2017-11-09] MEDS: PANTOPRAZOLE 40 MG VIAL IV SCH (08:07)
[2017-11-09] MEDS: hydroCHLOROthiazide 25 MG TABLET PO SCH (08:07)
[2017-11-09] MEDS: MULTIVITAMIN (CENTRUM) TABLET PO SCH (08:07)
[2017-11-09] MEDS: FERROUS SULFATE 325 MG TABLET PO SCH ×3 (08:07→22:05)
[2017-11-09] MEDS: DOCUSATE SODIUM 100 MG CAPSULE PO SCH ×2 (08:08→22:04)
[2017-11-09] MEDS: ENOXAPARIN 30 MG/0.3 ML SYRINGE SUBCUT SCH (08:08)
[2017-11-09] MEDS: MEGESTROL 40 MG TABLET PO SCH (08:08)
[2017-11-09] MEDS: CHOLECALCIFEROL 1,000 UNIT TABLET PO SCH (08:08)
[2017-11-09] MEDS: BISOPROLOL 5 MG TABLET PO SCH (08:08)
[2017-11-09] MEDS: GABAPENTIN 100 MG CAPSULE PO SCH ×3 (08:08→22:04)
[2017-11-09] MEDS ORDERED: SKIN HEALING OINT (AQUAPHOR) 50 GM TUBE TOP PRN (09:38)
[2017-11-09] MEDS: DEXTROSE 5% NACL 0.45% 1,000 ML IV SCH ×2 (10:45→20:45)
[2017-11-09] MEDS: INSULIN REGULAR 100 UNIT/ML SUBCUT SCH ×3 (11:33→22:25)
[2017-11-09] MEDS: TAMSULOSIN 0.4 MG CAPSULE PO SCH (22:04)
[2017-11-10] MEDS: SIMVASTATIN 40 MG TABLET PO SCH ×2 (00:22→18:39)
[2017-11-10 05:50] LABS: Basophils % 0.1 % (0.0-0.8); Eosinophils % 0.1 % (0.00-10.9); Hematocrit 24.8 VOL% (42.0-52.0); Hemoglobin 7.8 GM/DL (14.0-18.0); Immature Granulocytes % 0.5 %; Immature Granulocytes Absolute 0.04 #; Lymphocytes # 1.3 10*3/uL (1.4-4.0); Lymphocytes % 16.8 % (21.2-54.2); Mean Corpuscular HGB Conc 31.5 GM/DL (32-36); Mean Corpuscular Hemoglobin 28 PG (27-34); Mean Corpuscular Volume 87.9 FL (87-102); Mean Platelet Volume 10.6 FL (9.6-12.0); Monocytes # 0.5 10*3/uL (0.11-0.8); Monocytes % 6.8 % (1.7-12.7); Neutrophils % 75.7 % (38.7-73.9); Platelet Count 167 T/CUMM (130-400); Red Blood Count 2.82 MC/CUMM (3.8-5.5); Red Cell Distribution Width 13.6 % (9.3-17.3)
[2017-11-10 06:11] LABS: Calcium 7.9 MG/DL (8.5-10.1); Potassium 3.3 MMOL/L (3.5-5.1)
[2017-11-10] MEDS: DEXTROSE 5% NACL 0.45% 1,000 ML IV SCH ×2 (06:50→18:49)
[2017-11-10] MEDS ORDERED: MORPHINE 2 MG/1 ML SYRINGE IV PRN (08:20)
[2017-11-10] MEDS: INSULIN REGULAR 100 UNIT/ML SUBCUT SCH ×4 (08:31→21:40)
[2017-11-10] MEDS: ceFAZolin 2,000 MG in PREMIX 1 EACH IV SCH (09:30)
[2017-11-10] MEDS: MULTIVITAMIN (CENTRUM) TABLET PO SCH (09:32)
[2017-11-10] MEDS: hydroCHLOROthiazide 25 MG TABLET PO SCH (09:32)
[2017-11-10] MEDS: CHOLECALCIFEROL 1,000 UNIT TABLET PO SCH (09:32)
[2017-11-10] MEDS: FERROUS SULFATE 325 MG TABLET PO SCH ×3 (09:32→21:40)
[2017-11-10] MEDS: ENOXAPARIN 30 MG/0.3 ML SYRINGE SUBCUT SCH (09:33)
[2017-11-10] MEDS: DOCUSATE SODIUM 100 MG CAPSULE PO SCH ×2 (09:33→21:42)
[2017-11-10] MEDS: MEGESTROL 40 MG TABLET PO SCH (09:33)
[2017-11-10] MEDS: PANTOPRAZOLE 40 MG VIAL IV SCH (09:33)
[2017-11-10] MEDS: BISOPROLOL 5 MG TABLET PO SCH (09:37)
[2017-11-10] MEDS: GABAPENTIN 100 MG CAPSULE PO SCH ×3 (09:37→21:41)
[2017-11-10] MEDS: TAMSULOSIN 0.4 MG CAPSULE PO SCH (18:39)
[2017-11-11] MEDS: DEXTROSE 5% NACL 0.45% 1,000 ML IV SCH (05:15)
[2017-11-11 05:59] LABS: Eosinophils % 0.3 % (0.00-10.9); Hematocrit 21.4 VOL% (42.0-52.0); Immature Granulocytes % 0.4 %; Immature Granulocytes Absolute 0.03 #; Lymphocytes # 1.2 10*3/uL (1.4-4.0); Lymphocytes % 16.8 % (21.2-54.2); Mean Corpuscular HGB Conc 32.7 GM/DL (32-36); Mean Corpuscular Hemoglobin 28 PG (27-34); Mean Corpuscular Volume 85.9 FL (87-102); Mean Platelet Volume 9.7 FL (9.6-12.0); Monocytes # 0.6 10*3/uL (0.11-0.8); Monocytes % 8.7 % (1.7-12.7); Neutrophils # 5.1 10*3/uL (1.4-7.4); Neutrophils % 73.8 % (38.7-73.9); Platelet Count 238 T/CUMM (130-400); Red Blood Count 2.49 MC/CUMM (3.8-5.5); Red Cell Distribution Width 13.6 % (9.3-17.3); White Blood Count 6.9 T/CUMM (4-12)
[2017-11-11 06:25] LABS: Blood Urea Nitrogen 6 MG/DL (7-18); Calcium 7.5 MG/DL (8.5-10.1); Glucose 108 MG/DL (74-106); Osmolality,Calculated 271.8 MOS/KG (273-304); Potassium 2.8 MMOL/L (3.5-5.1); Sodium 137 MMOL/L (136-145)
[2017-11-11] MEDS ORDERED: SODIUM CHLORIDE 0.9% 1,000 ML IV PRN (07:02)
[2017-11-11] MEDS ORDERED: POTASSIUM CHLORIDE INJ 40 MEQ in DEXTROSE 5% NACL 0.45% 1,000 ML IV SCH (07:05)
[2017-11-11] MEDS ORDERED: DESITIN 4OZ/NYSTATIN 15 GRAM MIXTURE PASTE TOP PRN (07:29)
[2017-11-11] MEDS: BISOPROLOL 5 MG TABLET PO SCH (09:00)
[2017-11-11] MEDS: MEGESTROL 40 MG TABLET PO SCH (09:01)
[2017-11-11] MEDS: POTASSIUM CITRATE 10 MEQ TABLET PO SCH ×3 (09:01→21:34)
[2017-11-11] MEDS: hydroCHLOROthiazide 25 MG TABLET PO SCH (09:01)
[2017-11-11] MEDS: GABAPENTIN 100 MG CAPSULE PO SCH ×3 (09:01→21:34)
[2017-11-11] MEDS: DOCUSATE SODIUM 100 MG CAPSULE PO SCH ×2 (09:01→21:35)
[2017-11-11] MEDS: FERROUS SULFATE 325 MG TABLET PO SCH ×3 (09:01→21:34)
[2017-11-11] MEDS: CHOLECALCIFEROL 1,000 UNIT TABLET PO SCH (09:01)
[2017-11-11] MEDS: MULTIVITAMIN (CENTRUM) TABLET PO SCH (09:01)
[2017-11-11] MEDS: INSULIN REGULAR 100 UNIT/ML SUBCUT SCH ×4 (09:02→21:34)
[2017-11-11] MEDS: ENOXAPARIN 30 MG/0.3 ML SYRINGE SUBCUT SCH (09:02)
[2017-11-11] MEDS: DEXT 5% NACL 0.45% KCL 40 MEQ 40 MEQ/1,000 ML BAG IV SCH ×2 (09:02→23:40)
[2017-11-11] MEDS: PANTOPRAZOLE 40 MG VIAL IV SCH (09:02)
[2017-11-11] MEDS: SIMVASTATIN 40 MG TABLET PO SCH (17:18)
[2017-11-11] MEDS: TAMSULOSIN 0.4 MG CAPSULE PO SCH (17:18)
[2017-11-11] MEDS: guaiFENesin 200 MG/10 ML UDCUP PO PRN (17:28)
[2017-11-12] MEDS ORDERED: ZINC OXIDE PASTE 113 GM TUBE TOP PRN (05:11)
[2017-11-12 05:49] LABS: Basophils % 0.2 % (0.0-0.8); Eosinophils % 0.5 % (0.00-10.9); Hematocrit 29.2 VOL% (42.0-52.0); Hemoglobin 9.9 GM/DL (14.0-18.0); Immature Granulocytes % 0.4 %; Immature Granulocytes Absolute 0.03 #; Lymphocytes # 1.6 10*3/uL (1.4-4.0); Lymphocytes % 19.4 % (21.2-54.2); Mean Corpuscular HGB Conc 33.9 GM/DL (32-36); Mean Corpuscular Hemoglobin 29 PG (27-34); Mean Corpuscular Volume 85.6 FL (87-102); Mean Platelet Volume 9.8 FL (9.6-12.0); Monocytes # 0.6 10*3/uL (0.11-0.8); Monocytes % 7.3 % (1.7-12.7); Neutrophils # 5.8 10*3/uL (1.4-7.4); Neutrophils % 72.2 % (38.7-73.9); Platelet Count 238 T/CUMM (130-400); Red Blood Count 3.41 MC/CUMM (3.8-5.5); Red Cell Distribution Width 13.9 % (9.3-17.3); White Blood Count 8.1 T/CUMM (4-12)
[2017-11-12] MEDS: DEXT 5% NACL 0.45% KCL 40 MEQ 40 MEQ/1,000 ML BAG IV SCH (06:11)
[2017-11-12] MEDS: INSULIN REGULAR 100 UNIT/ML SUBCUT SCH ×4 (08:29→22:05)
[2017-11-12] MEDS: PANTOPRAZOLE 40 MG VIAL IV SCH (10:05)
[2017-11-12] MEDS: ENOXAPARIN 30 MG/0.3 ML SYRINGE SUBCUT SCH (10:07)
[2017-11-12] MEDS: GABAPENTIN 100 MG CAPSULE PO SCH ×4 (10:24→23:00)
[2017-11-12 12:43] LABS: Calcium 7.3 MG/DL (8.5-10.1); Potassium 5.5 MMOL/L (3.5-5.1)
[2017-11-12] MEDS: MEGESTROL 40 MG TABLET PO SCH (15:12)
[2017-11-12] MEDS: POTASSIUM CITRATE 10 MEQ TABLET PO SCH ×4 (15:12→23:00)
[2017-11-12] MEDS: MULTIVITAMIN (CENTRUM) TABLET PO SCH (15:21)
[2017-11-12] MEDS: hydroCHLOROthiazide 25 MG TABLET PO SCH (15:22)
[2017-11-12] MEDS: BISOPROLOL 5 MG TABLET PO SCH (15:22)
[2017-11-12] MEDS: FERROUS SULFATE 325 MG TABLET PO SCH ×4 (15:22→23:01)
[2017-11-12] MEDS: CHOLECALCIFEROL 1,000 UNIT TABLET PO SCH (15:22)
[2017-11-12] MEDS: DOCUSATE SODIUM 100 MG CAPSULE PO SCH ×3 (15:47→23:00)
[2017-11-12] MEDS: TAMSULOSIN 0.4 MG CAPSULE PO SCH (18:32)
[2017-11-12] MEDS: SIMVASTATIN 40 MG TABLET PO SCH (18:35)
[2017-11-12] MEDS: DEXT 5% NACL 0.45% KCL 10 MEQ 10 MEQ/1,000 ML BAG IV SCH (22:05)
[2017-11-13] MEDS: INSULIN REGULAR 100 UNIT/ML SUBCUT SCH ×3 (09:00→17:53)
[2017-11-13] MEDS: PANTOPRAZOLE 40 MG VIAL IV SCH (13:29)
[2017-11-13] MEDS: ENOXAPARIN 30 MG/0.3 ML SYRINGE SUBCUT SCH (13:39)
[2017-11-13] MEDS: BISOPROLOL 5 MG TABLET PO SCH (16:02)
[2017-11-13] MEDS: GABAPENTIN 100 MG CAPSULE PO SCH ×3 (16:04→22:20)
[2017-11-13] MEDS: hydroCHLOROthiazide 25 MG TABLET PO SCH (16:04)
[2017-11-13] MEDS: POTASSIUM CITRATE 10 MEQ TABLET PO SCH ×3 (16:04→22:21)
[2017-11-13] MEDS: DOCUSATE SODIUM 100 MG CAPSULE PO SCH ×2 (16:10→22:21)
[2017-11-13] MEDS: MULTIVITAMIN (CENTRUM) TABLET PO SCH (16:10)
[2017-11-13] MEDS: MEGESTROL 40 MG TABLET PO SCH (16:10)
[2017-11-13] MEDS: FERROUS SULFATE 325 MG TABLET PO SCH ×2 (16:10→22:20)
[2017-11-13] MEDS: CHOLECALCIFEROL 1,000 UNIT TABLET PO SCH (16:11)
[2017-11-13] MEDS: TAMSULOSIN 0.4 MG CAPSULE PO SCH (18:42)
[2017-11-13] MEDS: SIMVASTATIN 40 MG TABLET PO SCH (18:42)
[2017-11-13] MEDS: guaiFENesin 200 MG/10 ML UDCUP PO PRN (18:42)
[2017-11-13] MEDS: DEXT 5% NACL 0.45% KCL 10 MEQ 10 MEQ/1,000 ML BAG IV SCH (22:29)
[2017-11-14] MEDS: INSULIN REGULAR 100 UNIT/ML SUBCUT SCH ×5 (01:44→20:54)
[2017-11-14] MEDS: hydroCHLOROthiazide 25 MG TABLET PO SCH (09:36)
[2017-11-14] MEDS: POTASSIUM CITRATE 10 MEQ TABLET PO SCH ×3 (09:36→20:52)
[2017-11-14] MEDS: BISOPROLOL 5 MG TABLET PO SCH (09:36)
[2017-11-14] MEDS: GABAPENTIN 100 MG CAPSULE PO SCH ×3 (09:39→20:53)
[2017-11-14] MEDS: MULTIVITAMIN (CENTRUM) TABLET PO SCH (09:39)
[2017-11-14] MEDS: DOCUSATE SODIUM 100 MG CAPSULE PO SCH ×2 (09:39→20:51)
[2017-11-14] MEDS: PANTOPRAZOLE 40 MG VIAL IV SCH (09:40)
[2017-11-14] MEDS: MEGESTROL 40 MG TABLET PO SCH (09:40)
[2017-11-14] MEDS: FERROUS SULFATE 325 MG TABLET PO SCH ×3 (09:40→20:52)
[2017-11-14] MEDS: ENOXAPARIN 30 MG/0.3 ML SYRINGE SUBCUT SCH (09:42)
[2017-11-14] MEDS: CHOLECALCIFEROL 1,000 UNIT TABLET PO SCH (09:44)
[2017-11-14] MEDS ORDERED: SODIUM CHLORIDE 0.65% NASAL SPRAY 45 ML BOTTLE BOTH NARES PRN (14:52)
[2017-11-14] MEDS: DEXT 5% NACL 0.45% KCL 10 MEQ 10 MEQ/1,000 ML BAG IV SCH ×2 (19:35)
[2017-11-14] MEDS: SIMVASTATIN 40 MG TABLET PO SCH (21:45)
[2017-11-14] MEDS: TAMSULOSIN 0.4 MG CAPSULE PO SCH (21:47)
[2017-11-15] MEDS: DEXT 5% NACL 0.45% KCL 10 MEQ 10 MEQ/1,000 ML BAG IV SCH (00:25)
[2017-11-15] MEDS: INSULIN REGULAR 100 UNIT/ML SUBCUT SCH ×3 (07:32→17:57)
[2017-11-15 08:14] LABS: Basophils % 0.3 % (0.0-0.8); Eosinophils # 0.1 10*3/uL (0.0-0.87); Eosinophils % 0.7 % (0.00-10.9); Hematocrit 35.4 VOL% (42.0-52.0); Hemoglobin 11.2 GM/DL (14.0-18.0); Immature Granulocytes % 0.4 %; Immature Granulocytes Absolute 0.03 #; Lymphocytes # 1.7 10*3/uL (1.4-4.0); Lymphocytes % 24.9 % (21.2-54.2); Mean Corpuscular HGB Conc 31.6 GM/DL (32-36); Mean Corpuscular Hemoglobin 29 PG (27-34); Mean Corpuscular Volume 90.1 FL (87-102); Mean Platelet Volume 9.3 FL (9.6-12.0); Monocytes # 0.5 10*3/uL (0.11-0.8); Monocytes % 6.9 % (1.7-12.7); NRBC # 0.02 10*3/uL; Neutrophils # 4.6 10*3/uL (1.4-7.4); Neutrophils % 66.8 % (38.7-73.9); Platelet Count 310 T/CUMM (130-400); Red Blood Count 3.93 MC/CUMM (3.8-5.5); Red Cell Distribution Width 13.4 % (9.3-17.3)
[2017-11-15] MEDS: MULTIVITAMIN (CENTRUM) TABLET PO SCH (08:23)
[2017-11-15] MEDS: BISOPROLOL 5 MG TABLET PO SCH (08:23)
[2017-11-15] MEDS: GABAPENTIN 100 MG CAPSULE PO SCH ×2 (08:24→16:28)
[2017-11-15] MEDS: ENOXAPARIN 30 MG/0.3 ML SYRINGE SUBCUT SCH (08:24)
[2017-11-15] MEDS: hydroCHLOROthiazide 25 MG TABLET PO SCH (08:24)
[2017-11-15] MEDS: PANTOPRAZOLE 40 MG VIAL IV SCH (08:25)
[2017-11-15] MEDS: FERROUS SULFATE 325 MG TABLET PO SCH ×2 (08:25→16:27)
[2017-11-15] MEDS: CHOLECALCIFEROL 1,000 UNIT TABLET PO SCH (08:25)
[2017-11-15] MEDS: MEGESTROL 40 MG TABLET PO SCH (08:25)
[2017-11-15] MEDS: DOCUSATE SODIUM 100 MG CAPSULE PO SCH (08:25)
[2017-11-15 08:31] LABS: Calcium 8.2 MG/DL (8.5-10.1); Potassium 4.5 MMOL/L (3.5-5.1)
[2017-11-15 11:24] VITALS: BP 168/81
[2017-11-15] MEDS: guaiFENesin 200 MG/10 ML UDCUP PO PRN (11:29)
[2017-11-15] MEDS: SIMVASTATIN 40 MG TABLET PO SCH (17:57)
== END 2017-11-15 18:16 | disposition home health service (06) | DRG 240 ==
LOC: N.SDSINP 06:03 → N.ICU 10:09 → N.3E 11-09 17:22
PROVIDERS: ADMIT Specialist; ATTEND Specialist

== ENCOUNTER 2022-01-31 03:08 | Inpatient (IN) ==
[2022-01-31 03:40] LABS: Basophils % 0.2 % (0.0-0.8); Eosinophils % 0.4 % (0.00-10.9); Hematocrit 31.3 VOL% (42.0-52.0); Immature Granulocytes % 0.2 %; Immature Granulocytes Absolute 0.01 #; Lymphocytes # 0.4 10*3/uL (1.4-4.0); Lymphocytes % 8.2 % (21.2-54.2); Mean Corpuscular HGB Conc 31.9 GM/DL (32-36); Mean Corpuscular Volume 93.4 FL (87-102); Mean Platelet Volume 9.1 FL (9.6-12.0); Monocytes # 0.7 10*3/uL (0.11-0.8); Monocytes % 13.3 % (1.7-12.7); Neutrophils % 77.7 % (38.7-73.9); Platelet Count 133 T/CUMM (130-400); Red Blood Count 3.35 MC/CUMM (3.8-5.5); Red Cell Distribution Width 11.9 % (9.3-17.3); White Blood Count 4.9 T/CUMM (4-12)
[2022-01-31] MEDS ORDERED: SODIUM CHLORIDE 0.9% 1,000 ML IV STA (03:48)
[2022-01-31 04:10] LABS: Albumin 3.1 G/DL (3.4-5.0); Bilirubin,Total 0.4 MG/DL (0.20-1.00); Calcium 8.8 MG/DL (8.5-10.1); Osmolality,Calculated 272.1 MOS/KG (273-304); Potassium 4.3 MMOL/L (3.5-5.1); Total Protein 6.8 G/DL (6.4-8.2)
[2022-01-31 04:12] LABS: Bacteria,Urine Occasional /HPF (Few); Hyaline Casts,Urine 19 /LPF (0-3); Mucus,Urine Occasional /LPF (Occasional); RBC,Urine 15-20 /HPF (0-4); Squamous Epithelial Cell,Urine Occasional /HPF (0-10)
[2022-01-31 04:14] LABS: Urine Appearance Clear (Clear); Urine Color Yellow (Yellow); Urine pH 5.5 (4.5-8.0)
[2022-01-31 04:15] LABS: Bilirubin,Urine Negative (Negative); Blood, Urine Trace mg/dL (Negative); Glucose,Urine (UA) Negative (Negative); Ketones,Urine Negative (Negative); Nitrite,Urine Negative (Negative); Protein,Urine 30 mg/dL (Negative)
[2022-01-31 04:16] LABS: Urine Urobilinogen 0.2 eU/dL (<2.0)
[2022-01-31] MEDS ORDERED: ACETAMINOPHEN 500 MG TABLET PO STA (04:19)
[2022-01-31] MEDS ORDERED: cefTRIAXone 1,000 MG in SODIUM CHLORIDE 0.9% 100 ML IV STA (04:19)
[2022-01-31] MEDS ORDERED: ONDANSETRON 4 MG/2 ML VIAL IV PRN (04:56)
[2022-01-31] MEDS: SODIUM CHLORIDE 0.9% 1,000 ML IV SCH ×3 (05:51→21:05)
[2022-01-31] MEDS ORDERED: NON-FORMULARY MEDICATION (Food Supplemt, Lactose-Reduced [Ensure] Liquid) PO SCH (08:00)
[2022-01-31] MEDS: lisinopriL 2.5 MG TABLET PO SCH (09:53)
[2022-01-31] MEDS: MULTIVITAMIN (CENTRUM) TABLET PO SCH (09:53)
[2022-01-31] MEDS: cilostazoL 100 MG TABLET PO SCH ×2 (09:53→21:01)
[2022-01-31] MEDS: hydroCHLOROthiazide 25 MG TABLET PO SCH (09:53)
[2022-01-31] MEDS: PANTOPRAZOLE 40 MG VIAL IV SCH (09:53)
[2022-01-31] MEDS: DOCUSATE SODIUM 100 MG CAPSULE PO SCH ×2 (10:12→21:02)
[2022-01-31] MEDS: LORATADINE 10 MG TABLET PO SCH (17:56)
[2022-01-31] MEDS: TAMSULOSIN 0.4 MG CAPSULE PO SCH (17:56)
[2022-01-31] MEDS: ACETAMINOPHEN 325 MG TABLET PO PRN (17:57)
[2022-01-31] MEDS: GABAPENTIN 100 MG CAPSULE PO SCH (21:01)
[2022-01-31] MEDS: FERROUS SULFATE 325 MG TABLET PO SCH (21:02)
[2022-01-31] MEDS: SIMVASTATIN 20 MG TABLET PO SCH (21:02)
[2022-02-01 05:30] LABS: Hematocrit 32.4 VOL% (42.0-52.0); Hemoglobin 9.8 GM/DL (14.0-18.0); Immature Granulocytes % 0.2 %; Immature Granulocytes Absolute 0.01 #; Lymphocytes # 0.6 10*3/uL (1.4-4.0); Lymphocytes % 11.7 % (21.2-54.2); Mean Corpuscular HGB Conc 30.2 GM/DL (32-36); Mean Platelet Volume 10.6 FL (9.6-12.0); Monocytes # 0.4 10*3/uL (0.11-0.8); Monocytes % 8.9 % (1.7-12.7); Neutrophils % 79.2 % (38.7-73.9); Platelet Count 93 T/CUMM (130-400); Red Blood Count 3.24 MC/CUMM (3.8-5.5); Red Cell Distribution Width 11.9 % (9.3-17.3)
[2022-02-01 05:36] LABS: Calcium 8.2 MG/DL (8.5-10.1); Osmolality,Calculated 271.8 MOS/KG (273-304); Potassium 3.9 MMOL/L (3.5-5.1)
[2022-02-01] MEDS: cefTRIAXone 1,000 MG in SODIUM CHLORIDE 0.9% 100 ML IV SCH (06:20)
[2022-02-01] MEDS: SODIUM CHLORIDE 0.9% 1,000 ML IV SCH ×2 (06:40→18:15)
[2022-02-01] MEDS: cilostazoL 100 MG TABLET PO SCH ×2 (10:22→20:55)
[2022-02-01] MEDS: LORATADINE 10 MG TABLET PO SCH (10:22)
[2022-02-01] MEDS: FAMOTIDINE 20 MG TABLET PO SCH (10:22)
[2022-02-01] MEDS: DOCUSATE SODIUM 100 MG CAPSULE PO SCH ×2 (10:22→20:55)
[2022-02-01] MEDS: MULTIVITAMIN (CENTRUM) TABLET PO SCH (10:22)
[2022-02-01] MEDS: hydroCHLOROthiazide 25 MG TABLET PO SCH (10:22)
[2022-02-01] MEDS: FERROUS SULFATE 325 MG TABLET PO SCH ×3 (10:22→20:55)
[2022-02-01] MEDS: lisinopriL 2.5 MG TABLET PO SCH (10:22)
[2022-02-01] MEDS: PANTOPRAZOLE 40 MG VIAL IV SCH (10:23)
[2022-02-01] MEDS: TAMSULOSIN 0.4 MG CAPSULE PO SCH (18:15)
[2022-02-01] MEDS: GABAPENTIN 100 MG CAPSULE PO SCH (20:55)
[2022-02-01] MEDS: ACETAMINOPHEN 325 MG TABLET PO PRN (20:55)
[2022-02-01] MEDS: SIMVASTATIN 20 MG TABLET PO SCH (20:55)
[2022-02-02] MEDS: SODIUM CHLORIDE 0.9% 1,000 ML IV SCH ×5 (02:30→21:30)
[2022-02-02 05:31] LABS: Basophils % 0.1 % (0.0-0.8); Hematocrit 30.5 VOL% (42.0-52.0); Hemoglobin 9.7 GM/DL (14.0-18.0); Immature Granulocytes % 0.4 %; Immature Granulocytes Absolute 0.03 #; Lymphocytes # 0.6 10*3/uL (1.4-4.0); Lymphocytes % 9.5 % (21.2-54.2); Mean Corpuscular HGB Conc 31.8 GM/DL (32-36); Mean Corpuscular Volume 93.6 FL (87-102); Mean Platelet Volume 9.5 FL (9.6-12.0); Monocytes # 0.6 10*3/uL (0.11-0.8); Monocytes % 8.8 % (1.7-12.7); Neutrophils % 81.2 % (38.7-73.9); Platelet Count 114 T/CUMM (130-400); Red Blood Count 3.26 MC/CUMM (3.8-5.5); Red Cell Distribution Width 11.8 % (9.3-17.3); White Blood Count 6.7 T/CUMM (4-12)
[2022-02-02 05:54] LABS: Calcium 7.8 MG/DL (8.5-10.1); Osmolality,Calculated 274.8 MOS/KG (273-304); Potassium 3.5 MMOL/L (3.5-5.1)
[2022-02-02] MEDS: cefTRIAXone 1,000 MG in SODIUM CHLORIDE 0.9% 100 ML IV SCH (06:00)
[2022-02-02] MEDS: FERROUS SULFATE 325 MG TABLET PO SCH ×3 (10:46→21:30)
[2022-02-02] MEDS: cilostazoL 100 MG TABLET PO SCH ×2 (10:46→21:30)
[2022-02-02] MEDS: DOCUSATE SODIUM 100 MG CAPSULE PO SCH ×2 (10:46→21:30)
[2022-02-02] MEDS: MULTIVITAMIN (CENTRUM) TABLET PO SCH (10:46)
[2022-02-02] MEDS: LORATADINE 10 MG TABLET PO SCH (10:46)
[2022-02-02] MEDS: lisinopriL 2.5 MG TABLET PO SCH (10:46)
[2022-02-02] MEDS: FAMOTIDINE 20 MG TABLET PO SCH (10:46)
[2022-02-02] MEDS: hydroCHLOROthiazide 25 MG TABLET PO SCH (10:46)
[2022-02-02] MEDS: PANTOPRAZOLE 40 MG VIAL IV SCH (10:47)
[2022-02-02] MEDS: methylPREDNISolone SOD SUC 40 MG/1 ML VIAL IV SCH (18:01)
[2022-02-02] MEDS: TAMSULOSIN 0.4 MG CAPSULE PO SCH (18:01)
[2022-02-02] MEDS: GABAPENTIN 100 MG CAPSULE PO SCH (21:30)
[2022-02-02] MEDS: SIMVASTATIN 20 MG TABLET PO SCH (21:31)
[2022-02-03] MEDS: methylPREDNISolone SOD SUC 40 MG/1 ML VIAL IV SCH ×2 (04:55→17:57)
[2022-02-03] MEDS: cefTRIAXone 1,000 MG in SODIUM CHLORIDE 0.9% 100 ML IV SCH (04:55)
[2022-02-03 05:08] LABS: Hematocrit 27.8 VOL% (42.0-52.0); Immature Granulocytes % 0.2 %; Immature Granulocytes Absolute 0.01 #; Lymphocytes # 0.3 10*3/uL (1.4-4.0); Lymphocytes % 8.4 % (21.2-54.2); Mean Corpuscular HGB Conc 32.4 GM/DL (32-36); Mean Corpuscular Volume 92.7 FL (87-102); Mean Platelet Volume 9.8 FL (9.6-12.0); Monocytes # 0.1 10*3/uL (0.11-0.8); Monocytes % 2.2 % (1.7-12.7); Neutrophils % 89.2 % (38.7-73.9); Platelet Count 124 T/CUMM (130-400); White Blood Count 4.1 T/CUMM (4-12)
[2022-02-03 05:27] LABS: Calcium 8.4 MG/DL (8.5-10.1); Osmolality,Calculated 284.3 MOS/KG (273-304); Potassium 3.6 MMOL/L (3.5-5.1)
[2022-02-03] MEDS: SODIUM CHLORIDE 0.9% 1,000 ML IV SCH ×2 (11:05→18:34)
[2022-02-03] MEDS: cilostazoL 100 MG TABLET PO SCH ×2 (11:09→21:59)
[2022-02-03] MEDS: MULTIVITAMIN (CENTRUM) TABLET PO SCH (11:09)
[2022-02-03] MEDS: LORATADINE 10 MG TABLET PO SCH (11:10)
[2022-02-03] MEDS: FERROUS SULFATE 325 MG TABLET PO SCH ×3 (11:10→21:59)
[2022-02-03] MEDS: lisinopriL 5 MG TABLET PO SCH (11:10)
[2022-02-03] MEDS: PANTOPRAZOLE 40 MG VIAL IV SCH (11:10)
[2022-02-03] MEDS: DOCUSATE SODIUM 100 MG CAPSULE PO SCH ×2 (11:10→21:59)
[2022-02-03] MEDS: FAMOTIDINE 20 MG TABLET PO SCH (11:10)
[2022-02-03] MEDS: TAMSULOSIN 0.4 MG CAPSULE PO SCH (17:58)
[2022-02-03] MEDS: GABAPENTIN 100 MG CAPSULE PO SCH (21:59)
[2022-02-03] MEDS: SIMVASTATIN 20 MG TABLET PO SCH (21:59)
[2022-02-04] MEDS: SODIUM CHLORIDE 0.9% 1,000 ML IV SCH (05:57)
[2022-02-04] MEDS: cefTRIAXone 1,000 MG in SODIUM CHLORIDE 0.9% 100 ML IV SCH (05:58)
[2022-02-04] MEDS: methylPREDNISolone SOD SUC 40 MG/1 ML VIAL IV SCH ×2 (05:58→18:12)
[2022-02-04] MEDS: MULTIVITAMIN (CENTRUM) TABLET PO SCH (10:33)
[2022-02-04] MEDS: PANTOPRAZOLE 40 MG VIAL IV SCH (10:34)
[2022-02-04] MEDS: FERROUS SULFATE 325 MG TABLET PO SCH ×2 (10:34→15:56)
[2022-02-04] MEDS: LORATADINE 10 MG TABLET PO SCH (10:34)
[2022-02-04] MEDS: DOCUSATE SODIUM 100 MG CAPSULE PO SCH (10:34)
[2022-02-04] MEDS: FAMOTIDINE 20 MG TABLET PO SCH (10:37)
[2022-02-04] MEDS: cilostazoL 100 MG TABLET PO SCH (10:38)
[2022-02-04] MEDS: lisinopriL 5 MG TABLET PO SCH (10:38)
[2022-02-04 12:35] VITALS: BP 163/69
[2022-02-04] MEDS: TAMSULOSIN 0.4 MG CAPSULE PO SCH (18:11)
== END 2022-02-04 18:13 | disposition home health service (06) | DRG 177 ==
LOC: EDBD → EDSEX → EDUNIT# → N.ED 03:08 → N.EDINP 04:54 → N.TELEN 15:15
PROVIDERS: ADMIT Internal Medicine; ATTEND Internal Medicine